=== PATIENT | female | born 1960 | race Caucasian/White ===

== ENCOUNTER 2025-03-24 14:27 | Outpatient (CLI) | payer MEDICARE, MEDICAID, SELFPAY ==
--- OUTSIDE RECORDS SUMMARY | 2025-02-17 13:50 | XMS_ITS | Encounter Summary ---
Author Organization Healthcare Address [address] [place] [address] Care Team Providers Care Cotton Stripper Name Role Phone Lucita Bonilla APRN Primary Care Provider [phone] Reason for Visit * Reason Comments Consult * Consultation (Routine) - Closed Specialty Diagnoses / Procedures Referred By Contac t Referred To Contact Rheumatology Diagnoses Other specified abnormal immunological findings in serum Naima Bonilla PA [address] [facility] [place] [address] Phone: tel: fax: [facility] [address] [place] [address] Phone: tel: fax: Referral ID Status Reason Start Date Expiration Date V isits Requested Visits Authorized [id number] Closed Specialty Services Required 11/29/2024 05/31/2026 1 1 Encounter Details Date Type Department Care Team (Late st Contact Info) Description 02/17/2025 1:50 PM EDT Consult [facility] [address] [place] [address] Moraima Richard APRN [address] [place] [address] Positive NELSY (antinuclear antibody) (Primary [...] file Social Connections: Unknown (06/12/2023) Received from [facility] Family and Community Support Help with Day-to-Day Activities: Not on file Lonely or Isolated: Not on file Intimate Partner Violence: Not At Risk (09/20/2023) Received from [facility] Abuse Screen Feels Unsafe at Home or Work/School: no Feels Threatened by Someone: no Does Anyone Try to Keep You From Having Contact with Others or Doing Things Outside Your Home?: no Physical Signs of Abuse Present: no Housing Stability: Unknown (06/12/2023) Received from [facility] Housing Stability Current Living Arrangements: Not on [...] (ESR) -- SANCHEZ-28 (CRP) -- Tender (SANCHEZ-28) Swollen (SANCHEZ-28) 0 Provider Global -- Patient [...] Q 6 MONTHS Note to patient: The 21st Century Cures Act makes medical notes like these available to patients inthe interest of transparency. However, please be advised that this is a medical document. It is intended as dshz-gm-drxw communication. It is written in medical language [...] Diagnosis Date COPD (chronic obstructive pulmonary disease) ([facility]) Coronary artery disease GERD (gastroesophageal reflux disease) [...] facility-administered medications for this visit. * Moraima Chauhan APRN - 02/17/2025 1:28 PM EDT Images from the original note were not included. All About Arthritis - Video Arthritis refers to a group of disorders that involve the body?s joints and have similar symptoms, including pain, stiffness, and swelling. Learn about the different types of arthritis and their treatment. To view the video go to this web address: https://bit.[email or web address] Or, scan this QR code with your smart phone Last Reviewed Date: 2020 00:00:00 ?? [employer] All rights reserved. This information is not [...] phone Last Reviewed Date: 2021 00:00:00 ?? [employer] All rights reserved. This information is not [...] about any medicines you are taking, including kgpy-mey-xwrgzrt medicines, herbs, and supplements. Last Reviewed Date: 2024 00:00:00 ?? [id number] The [employer]. All rights reserved. This information is not intended as a substitute for professional medical care. Always follow your healthcare professional's instructions. * [facility] - Moraima Richard APRN - 02/17/2025 1:28 PM EDT Images from the original note were not included. 42014 Understanding Polyarthritis Polyarthritis is a term for [...] and reduce swelling and stiffness. They include cwsx-zbj-vsphkvr medicines such as naproxen and ibuprofen, and [...] pain. Last Reviewed Date: 2024 00:00:00 ?? [id number] The [employer]. All rights reserved. This information is not intended as a substitute for professional medical care. Always follow your healthcare professional's instructions. documented in this encounter Plan of Treatment Upcoming Encounters Date Type Department Care Team (Late st Contact Info) Description 08/18/2025 1:20 PM EST Office Visit [facility] [address] [place] [address] Moraima Richard APRN [address] [place] [phone] documented as of this encounter Results * [...] MD on 02/17/2025 2:33 PM us Moraima Rimma Richard CUSTODIAL SERVICES MANAGER IMG XR PROCEDURES Final R esult * [...] Cristina MD on 02/17/2025 2:33 PM Moraima Richard APRN IMG XR PROCEDURES Final R esult * Protein, Random, Urine with Creatinine (02/17/2025 1:57 PM EDT) Protein, Urine 27 mg/dL 02/17/2025 4:44 PM EDT [facility] Creatinine, Urine 71 mg/dL 02/17/2025 4:44 PM EDT [facility] Protein/Creatin ine Ratio 0.4 mg/mg Creat 02/17/2025 4:44 PM EDT [facility] Urine Urine specimen obtained by clean catch procedure / Unknown Non-blood Collection / Unknown 02/17/2025 1:57 PM EDT 02/17/2025 1:57 PM EDT us Moraima L Jose Manuel CUSTODIAL SERVICES MANAGER LAB URINE ORDERABLES Maribel l Result Performing Organization Address City/[facility]/ZIP Co de Phone Number [facility] [address] [place] [address] * TSH (02/17/2025 1:56 PM EDT) Thyroid Stimulating Hormone, Plasma 1.62 0.40 - 4.20 uIU/mL 02/17/2025 3:29 PM EDT [facility] Blood Venous blood specimen / Unknown Venipuncture / Unknown 02/17/2025 1:56 PM EDT 02/17/2025 1:56 PM EDT us Moraima Davalosly CUSTODIAL SERVICES MANAGER LAB BLOOD ORDERABLES Maribel l Result Performing Organization Address City/[facility]/ZIP Co de Phone Number [facility] [address] [place] [address] * Thyroid Peroxidase Antibody (02/17/2025 1:56 PM EDT) Thyroid Peroxidase Antibody <5 <=8 IU/mL 02/17/2025 3:37 PM EDT [facility] Blood Venous blood specimen / Unknown Venipuncture / Unknown 02/17/2025 1:56 PM EDT 02/17/2025 1:56 PM EDT us Moraima Davalosly CUSTODIAL SERVICES MANAGER LAB BLOOD ORDERABLES Maribel l Result [facility] [address] [place] [address] * Thyroglobulin Antibody (Inhouse) (02/17/2025 1:56 PM EDT) Thyroglobulin Antibody <1.0 <4.0 IU/mL 02/17/2025 3:51 PM EDT [facility] Blood Venous blood specimen / Unknown Venipuncture / Unknown 02/17/2025 1:56 PM EDT 02/17/2025 1:56 PM EDT Moraima Davalosly CUSTODIAL SERVICES MANAGER LAB BLOOD ORDERABLES Maribel l Result [facility] [address] [place] [address] * T4, free (02/17/2025 1:56 PM EDT) Free T4, Plasma 1.2 0.8 - 1.7 ng/dL 02/17/2025 3:29 PM EDT [facility] Blood Venous blood specimen / Unknown Venipuncture / Unknown 02/17/2025 1:56 PM EDT 02/17/2025 1:56 PM EDT Moraima Davalosly CUSTODIAL SERVICES MANAGER LAB BLOOD ORDERABLES Maribel l Result [facility] [address] [place] [address] * T3 (02/17/2025 1:56 PM EDT) T3, Serum 130 87 - 187 ng/dL 02/17/2025 5:09 PM EDT [facility] Blood Venous blood specimen / Unknown Venipuncture / Unknown 02/17/2025 1:56 PM EDT 02/17/2025 1:56 PM EDT Moraima Davalosly CUSTODIAL SERVICES MANAGER LAB BLOOD ORDERABLES Maribel l Result [facility] [address] [place] [address] * Cyclic Citrul Peptide Antibody IgG (02/17/2025 1:56 PM EDT) Cyclic Citrul Peptide Antibody IgG <5.0 <=5.0 U/mL 02/17/2025 3:52 PM EDT [facility] Blood Venous blood specimen / Unknown Venipuncture / Unknown 02/17/2025 1:56 PM EDT 02/17/2025 1:56 PM EDT Moraima Richard CUSTODIAL SERVICES MANAGER LAB BLOOD ORDERABLES Maribel l Result [facility] [address] [place] [address] * Rheumatoid Factor, Plasma (02/17/2025 1:56 PM EDT) Rheumatoid Factor, Plasma <10 <14 IU/mL 02/17/2025 5:09 PM EDT [facility] Blood Venous blood specimen / Unknown Venipuncture / Unknown 02/17/2025 1:56 PM EDT 02/17/2025 1:56 PM EDT [facility]a [facility] LAB BLOOD ORDERABLES Maribel l Result [facility] [address] [place] [address] * Callahan (LILIBETH) Antibody, IgG (02/17/2025 1:56 PM EDT) Callahan (LILIBETH) Antibody, IgG 5 0 - 40 AU/mL 02/19/2025 1:27 PM EDT [facility] ([email or web address]) Serum 02/17/2025 1:56 PM EDT 02/17/2025 1:56 PM EDT Narrative [facility] ([email or web address]) - 02/19/2025 1:27 PM EDT INTERPRETIVE INFORMATION: [...] associations with SLE clinical manifestations. Performed By: [facility] [address] [place] [address] Fabricator Artificial Breast: Angel Luis Fuentes MD, PhD CLIA Number: [id number] Moraima Rimma Richard CUSTODIAL SERVICES MANAGER LAB REF LAB BLOOD AND FLU ID ORD Final Result [facility] [employer] ([email or web address]) [address] [place] [address] * ENAII (02/17/2025 1:56 PM EDT) SSA-52 (RO52) (LILIBETH) Antibody, IgG 29 0 - 40 AU/mL 02/19/2025 1:28 PM EDT [facility] ([email or web address]) SSA-60 (RO60) (LILIBETH) Antibody, IgG 0 0 - 40 AU/mL 02/19/2025 1:28 PM EDT [facility] ([email or web address]) SSB (LA) (LILIBETH) Antibody, IgG 1 0 - 40 AU/mL 02/19/2025 1:28 PM EDT [facility] ([email or web address]) Blood Venous blood specimen / Unknown Venipuncture / Unknown 02/17/2025 1:56 PM EDT 02/17/2025 1:56 PM EDT Narrative [facility] ([email or web address]) - 02/19/2025 1:28 PM EDT INTERPRETIVE INFORMATION: [...] (PSS) also have this antibody. Performed By: [facility] [address] [place] [address] Fabricator Artificial Breast: Angel Luis Fuentes MD, PhD CLIA Number: [id number] Moraima Richard CUSTODIAL SERVICES MANAGER LAB BLOOD ORDERABLES Maribel gomez Result [facility]) [address] [place], [place] [id number] * ENAI (02/17/2025 1:56 PM EDT) Callahan/ACUTE COORDINATOR (LILIBETH) Ab, IgG 2 0 - 19 Units 02/21/2025 8:59 AM EDT [facility]) Blood Venous blood specimen / Unknown Venipuncture / Unknown 02/17/2025 1:56 PM EDT 02/17/2025 1:56 PM EDT Narrative [facility]) - 02/21/2025 8:59 AM EDT INTERPRETIVE INFORMATION: Callahan/ACUTE COORDINATOR (LILIBETH) Antibody, IgG 19 Units or Less ............. Negative 20 to 39 Units ............... Weak Positive 40 to 80 Units ............... Moderate Positive 81 Units or greater .......... Strong Positive Callahan/ACUTE COORDINATOR antibodies are frequently seen in patients with mixed connective tissue disease (MCTD) and are also associated with other systemic autoimmune rheumatic diseases (SARDs) such as systemic lupus erythematosus (SLE), systemic sclerosis, and myositis. Antibodies targeting the Callahan/ACUTE COORDINATOR antigenic complex also recognize Callahan antigens, therefore, the Callahan antibody response must be considered when interpreting these results. Performed By: [facility] [address] [place] [address] Fabricator Artificial Breast: Angel Luis Fuentes MD, PhD CLIA Number: [id number] Moraima Richard [facility] LAB BLOOD ORDERABLES Maribel gomez Result [facility] [employer]) [address] [place] [address] * (ABNORMAL) Double-Stranded DNA (dsDNA) Antibody, IgG by IFA (02/17/2025 1:56 PM EDT) Double-Strande d DNA (dsDNA) Ab IgG IFA 1:40(H) <1:10 02/20/2025 7:54 AM EDT [facility] ([facility]) Blood Venous blood specimen / Unknown Venipuncture / Unknown 02/17/2025 1:56 PM EDT 02/17/2025 1:56 PM EDT Narrative [facility] [employer]) - 02/20/2025 7:54 AM EDT INTERPRETIVE INFORMATION: [...] recommendations for testing may be found at https://[employer]base (acquired by [employer])/content/tggqhoicss-mzdaii-xdhnrpmw. Performed By: [facility] [address] [place] [address] Fabricator Artificial Breast: Angel Luis Fuentes MD, PhD CLIA Number: [id number] Moraima Richard APRN LAB BLOOD ORDERABLES Maribel l Result Performing Organization Address City/[facility] Co de Phone Number [employer] ([facility]) [address] [place] [address] * C4 Complement (02/17/2025 1:56 PM EDT) C4 Complement 23 13 - 36 mg/dL 02/17/2025 3:30 PM EDT [facility] Blood Venous blood specimen / Unknown Venipuncture / Unknown 02/17/2025 1:56 PM EDT 02/17/2025 1:56 PM EDT Moraima Richard CUSTODIAL SERVICES MANAGER LAB BLOOD ORDERABLES Maribel l Result Performing Organization Address City/[facility] Co de Phone Number [facility] [address] [place] [address] * C3 Complement (02/17/2025 1:56 PM EDT) C3 Complement 149 84 - 166 mg/dL 02/17/2025 3:30 PM EDT [facility] Blood Venous blood specimen / Unknown Venipuncture / Unknown 02/17/2025 1:56 PM EDT 02/17/2025 1:56 PM EDT Moraima Richard CUSTODIAL SERVICES MANAGER LAB BLOOD ORDERABLES Maribel l Result Performing Organization Address City/[facility]/ZIP Co de Phone Number [facility] [address] [place] [address] * (ABNORMAL) Antinuclear Antibody (NELSY), HEp-2, IgG (02/17/2025 1:56 PM EDT) NELSY INTERPRETIVE COMMENT See Note 02/19/2025 2:35 PM EDT [facility] ([email or web address]) Anti Nuc Ab Screen Detected( H) <1:80 02/19/2025 2:35 PM EDT [facility] ([email or web address]) Blood Venous blood specimen / Unknown Venipuncture / Unknown 02/17/2025 1:56 PM EDT 02/17/2025 1:56 PM EDT Narrative [facility] ([email or web address]) - 02/19/2025 2:35 PM EDT Centromere Pattern [...] not necessarily rule out SARD. Performed By: [facility] [address] [place] [address] Fabricator Artificial Breast: Angel Luis Fuentes MD, PhD CLIA Number: [id number] Moraimaanderson Richard CUSTODIAL SERVICES MANAGER LAB BLOOD ORDERABLES Maribel l Result Performing Organization Address [facility] Co de Phone Number [facility]) [address] [place] [address] * Cryoglobulin, Serum (SO) (02/17/2025 1:56 PM EDT) [facility] Cryoglobulin, S SEE COMMENTS Negative %ppt 02/19/2025 2:00 PM EDT [facility]) Comment: Negative. This test is negative at 24 hours. All samples are held and reviewed again at 7 days. If delayed precipitation occurs after 7 days, Immunofixation will be performed and an additional report will follow. Test Performed by: [facility] [address] [place] [address] Receptionist/Telephone Operator: Jani Nascimento Ph.D.; CLIA# [id number] Blood Venous blood specimen / Unknown Venipuncture / Unknown 02/17/2025 1:56 PM EDT 02/17/2025 1:56 PM EDT Moraima Rimma Jose Manuel APRN LAB REF LAB BLOOD AND FLU ID ORD Final Result Performing Organization Address [facility] Co de Phone Number [facility]) * (ABNORMAL) RNA Polymerase III Antibody, IgG (02/17/2025 1:56 PM EDT) [facility] RNA Polymerase III Antibody, IgG 73(H) 0 - 19 Units 02/19/2025 7:22 PM EDT [facility]) Blood Venous blood specimen / Unknown Venipuncture / Unknown 02/17/2025 1:56 PM EDT 02/17/2025 1:56 PM EDT Narrative [facility]) - 02/19/2025 7:22 PM EDT INTERPRETIVE INFORMATION: [...] antibodies associated with SSc, including centromere, Scl-70, U3-ACUTE COORDINATOR, PM/Scl, or Th/To. Performed By: [facility] [address] [place] [address] Fabricator Artificial Breast: Angel Luis Fuentes MD, PhD CLIA Number: [id number] Moraima Richard APRN LAB BLOOD ORDERABLES Maribel gomez Result [facility]) [address] [place], [place] [id number] * PM/Scl-100 Antibody, IgG by Immunoblot (SO) (02/17/2025 1:56 PM EDT) Pathologist [facility] PM/Scl 100 Antibody, IgG Negative Negative 02/19/2025 8:42 PM EDT [employer] ([email or web address]) Blood Venous blood specimen / Unknown Venipuncture / Unknown 02/17/2025 1:56 PM EDT 02/17/2025 1:56 PM EDT Narrative [facility]) - 02/19/2025 8:42 PM EDT INTERPRETIVE INFORMATION: [...] developed and its performance characteristics determined by [facility]. It has not been cleared or approved by the US Food and Drug Administration. This test was performed in a CLIA certified laboratory and is intended for clinical purposes. Performed By: [facility] [address] [place] [address] Fabricator Artificial Breast: Angel Luis Fuentes MD, PhD CLIA Number: [id number] Moraima Richard CUSTODIAL SERVICES MANAGER LAB BLOOD ORDERABLES Maribel gomez Result [facility] [employer]) [address] [place] [address] * Anti-scleroderma antibody (02/17/2025 1:56 PM EDT) SCLERODERMA (SCL-70) (LILIBETH) ANTIBODY, IGG 2 0 - 40 AU/mL 02/19/2025 1:28 PM EDT [facility] ([facility]) Blood Venous blood specimen / Unknown Venipuncture / Unknown 02/17/2025 1:56 PM EDT 02/17/2025 1:56 PM EDT Narrative [facility] Proteins[facility]KY [facility]) - 02/19/2025 1:28 PM EDT INTERPRETIVE INFORMATION: [...] testing for centromere, RNA polymerase III and U3-ACUTE COORDINATOR, PM/Scl, or Th/To antibodies. Performed By: [facility] [address] [place] [address] Fabricator Artificial Breast: Angel Luis Fuentes MD, PhD CLIA Number: [id number] Moraima Richard APRN LAB BLOOD ORDERABLES Maribel gomez Result [facility]) [address] [place] [address] * (ABNORMAL) Centromere Antibody, IgG (02/17/2025 1:56 PM EDT) Pathologist [facility] Centromere Ab, IgG 139(H) 0 - 40 AU/mL 02/19/2025 1:27 PM EDT [employer] ([email or web address]) Blood Venous blood specimen / Unknown Venipuncture / Unknown 02/17/2025 1:56 PM EDT 02/17/2025 1:56 PM EDT Narrative [facility] ([email or web address]) - 02/19/2025 1:27 PM EDT INTERPRETIVE INFORMATION: [...] other antibodies associated with SSc, including Scl-70, U3-ACUTE COORDINATOR, PM/Scl, or Th/To. Performed By: [facility] [address] [place] [address] Fabricator Artificial Breast: Angel Luis Fuentes MD, PhD CLIA Number: [id number] Moraima Richard APRN LAB BLOOD ORDERABLES Maribel gomez Result [facility] ([facility]) [address] [place] [address] documented in this encounter Visit Diagnoses Diagnosis [...] documented as of this encounter Care Teams Cotton Stripper Relationship Specialty Start Date End Date Lucita Bonilla APRN [address] [place] [address] PCP - General 03/29/23 documented as of this encounter
--- OUTSIDE RECORDS SUMMARY | 2025-02-17 13:59 | XMS_ITS | Encounter Summary ---
Author Organization Healthcare Address [address] [place] [address] Care Team Providers Care Aerophysics Engineer Name Role Phone Lucita Bonilla APRN Primary Care Provider [phone] Encounter Details Date Type Department Care Team (Latest Contact Info) Description 02/17/2025 1:59 PM EDT - 02/17/2025 11:59 PM EDT Hospital Encounter [facility] [address], [address] [place] [address] Positive NELSY (antinuclear antibody); Polyarthralgia [...] television Not at all 02/17/2025 12:55 PM JAMIET Keren Nickerson Moving or speaking so slowly [...] Keren Nickerson documented as of this encounter Medications at [...] mg) by mouth twice a day. 10/18/2023 ibuprofen 600 MG tablet Take 1 tablet (600 mg) by mouth every 6 (six) hours if needed for mild pain or moderate pain. 80 tablet 01/15/2024 ibuprofen 600 MG tablet Take 1 tablet (600 mg) by mouth every 6 (six) hours if needed for mild pain. 60 tablet 06/13/2024 lidocaine (Xylocaine) 5 % ointmentIndications: Aftercare following [...] needed for severe pain. 3 tablet 06/13/2024 pantoprazole (Protonix) 40 MG EC tablet Take 1 tablet (40 mg) by mouth 1 (one) time each day before breakfast. Do not crush, chew, or split. 30 tablet 3 12/01/2023 phenazopyridine (Pyridium) 100 MG tabletIndications:Dy suria Take 1 tablet (100 mg) by mouth 3 (three) times a day if needed for pain. 10 tablet 01/15/2024 polyethylene glycol (Miralax) 17 g packet Take 17 g by mouth 1 (one) time each day if needed (constipation) . 30 packet 01/15/2024 RABEprazole (Aciphex) 20 MG EC tablet 12/28/2023 senna (Senokot) 8.6 MG tablet Take 2 tablets (17.2 mg) by mouth at night if needed for constipation. 60 tablet 01/15/2024 simethicone (Mylicon) 80 MG chewable tablet Chew 1 tablet (80 mg) every 6 (six) hours if needed (gas pain). 60 tablet 01/15/2024 tiotropium (Spiriva) [address] 1 capsule (18 mcg) into inhaler and inhale 1 (one) time each day. traZODone (Desyrel) 50 MG tablet Take 1 tablet (50 mg) by mouth every night. 11/21/2023 documented as of this encounter Plan of Treatment Upcoming Encounters Date Type Department Care Team (Late st Contact Info) Description 08/18/2025 1:20 PM EST Office Visit [facility] [address], [address] [place] [address] Moraima Richard, BOAT OAR MAKER [address] [place] [address] documented as of this encounter [...] on 02/17/2025 2:33 PM us Moraima Richard BOAT OAR MAKER IMG XR PROCEDURES Final R esult * [...] Cristina MD on 02/17/2025 2:33 PM Moraima Shanks Jose Manuel BOAT OAR MAKER IMG XR PROCEDURES Final R esult [...] documented as of this encounter Care Teams Aerophysics Engineer Relationship Specialty Start Date End Date Lucita Bonilla APRN [address] [place] [address] PCP - General 03/29/23 documented as of this encounter
--- OUTSIDE RECORDS SUMMARY | 2025-03-24 14:31 | XMS_ITS | Encounter Summary ---
Author Organization Healthcare Address [address] [place] [address] Care Team Providers Care Watch Hairspring Assembler Name Role Phone Lucita Bonilla LARISSA Primary Care Provider [phone] Encounter Details Date Type Department Care Team (Late st Contact Info) Description 03/03/2025 Telephone [facility] [address], [address] [place] [address] Moraima Richard APRN [address] [place] [address] Social History Tobacco Use Types Packs/Day Years [...] on file documented as of this encounter Miscellaneous Notes * Telephone Encounter - Mirella Jamison - 03/03/2025 1:10 PM EDT Called both # and left message.. need location of echo documented in this encounter Plan of Treatment Upcoming Encounters Date Type Department Care Team (Late st Contact Info) Description 08/18/2025 1:20 PM EST Office Visit [facility] [address], [address] [place] [address] Moraima Richard APRN [address] [place] [address] documented as of this encounter Visit Diagnoses Not on filedocumented in this encounter Additional Health Concerns Assessment Noted Time PHQ-9 Depression Total Score: 0 02/18/20 25 12:55 PM EDT A fall risk assessment has been complete d for the patient 02/17/2025 12:55 PM EDT A Body Mass Index follow-up plan has been documented for the patient 02/17/2025 1:32 PM EDT documented as of this encounter Care Teams Watch Hairspring Assembler Relationship Specialty Start Date End Date Lucita Bonilla APRN [address] [place] [address] PCP - General 03/29/23 documented as of this encounter
--- OUTSIDE RECORDS SUMMARY | 2025-03-24 14:31 | XMS_ITS | Encounter Summary ---
Author Organization Healthcare Address [address] [place] [address] Care Team Providers Care Spooler Name Role Phone Lucita Bonilla LARISSA Primary Care Provider [phone] Encounter Details Date Type Department Care Team (Late st Contact Info) Description 02/26/2025 Telephone [facility] [address] [place] [address] Moraima Richard APRN [address] [place] [address] Social History Tobacco Use Types [...] encounter Miscellaneous Notes * Telephone Encounter - Radha Newman - 02/26/2025 2:46 PM EDT ----- Message from Moraima Richard APRN sent at 02/26/2025 2:01 PM EDT ----- Please call pt and let her know I need to discuss labs. We need additional labs and I need her to come back In 6 months documented in this encounter Plan of Treatment Upcoming Encounters Date Type Department Care Team (Late st Contact Info) Description 08/18/2025 1:20 PM EST Office Visit [facility] [address] [place] [address] Moraima Richard, CAMPGROUND CLEANING ATTENDANT [address] [place] [address] documented as of this encounter Visit Diagnoses Not on filedocumented in this encounter Additional Health Concerns Assessment Noted Time PHQ-9 Depression Total Score: 0 02/18/20 12:55 PM EDT A fall risk assessment has been complete d for the patient 02/17/2025 12:55 PM EDT A Body Mass Index follow-up plan has been documented for the patient 02/17/2025 1:32 PM EDT documented as of this encounter Care Teams Spooler Relationship Specialty Start Date End Date Lucita Bonilla APRN [address] [place] [address] PCP - General 03/29/23 documented as of this encounter
--- OUTSIDE RECORDS SUMMARY | 2025-03-24 14:31 | XMS_ITS | Encounter Summary ---
Author Organization Healthcare Address [address] [place] [address] Care Team Providers Care Production Finisher Name Role Phone Lucita Bonilla APRN Primary Care Provider [phone] Encounter Details Date Type Department Care Team (Late st Contact Info) Description 02/18/2025 Results Follow-Up [facility] [address], [address] [place] [address] Moraima Richard APRN [address] [place] [address] Social History Tobacco Use Types [...] on file documented as of this encounter Plan of Treatment Upcoming Encounters Date Type Department Care Team (Late st Contact Info) Description 08/18/2025 1:20 PM EST Office Visit [facility] [address], [address] [place] [address] Moraima Richard APRN [address] [place] [address] documented as of this encounter Visit Diagnoses [...] documented as of this encounter Care Teams Production Finisher Relationship Specialty Start Date End Date Lucita Bonilla APRN [address] [place] [address] PCP - General 03/29/23 documented as of this encounter
--- OUTSIDE RECORDS SUMMARY | 2025-03-24 14:32 | XMS_ITS | Encounter Summary ---
Author Organization Healthcare Address [address] [place] [address] Care Team Providers Care Mini Bar Attendant Name Role Phone Lucita Bonilla APRN Primary Care Provider [phone] Encounter Details Date Type Department Care Team (Late st Contact Info) Description 03/06/2025 Telephone [facility] [address] [place] [address] Moraima Richard APRN [address] [place] [address] Social History Tobacco Use Types [...] Description 08/18/2025 1:20 PM EST Office Visit [facility] [address], [address] [place] [address] Moraima Richard APRN [address] [place] [address] documented as of this encounter Visit Diagnoses [...] documented as of this encounter Care Teams Mini Bar Attendant Relationship Specialty Start Date End Date Lucita Bonilla APRN [address] [place] [address] PCP - General 03/29/23 documented as of this encounter
--- OUTSIDE RECORDS SUMMARY | 2025-03-24 14:32 | XMS_ITS | Encounter Summary ---
Author Organization [employer] ([place], [place], [place], [place]) Address [address] [place] [address] Care Team Providers Care Kitman Name Role Phone Unavailable Primary Care Provider Unavailabl e Encounter Details Date Type Department Care Team (Late st Contact Info) Description 06/08/2020 Transcribed Document [facility] [place] [facility] [address] [place] [address] ProviderSoraida MD [address] [place], [place] [id number] Social History Tobacco Use Types Packs/Day Years Used Date Smoking Tobacco: Never Assessed Comments Unknown Sex and Gender Information Value Date Recorded Sex Assigned at Female 03/01/2022 10:41 AM CDT Legal Sex Female 10:41 AM CDT Gender Identity Female 03/01/2022 10:41 AM CDT Sexual Orientation Not on file documented as of this encounter Miscellaneous Notes * Cerner Conversion Note - Historical ProviderMD - 06/08/2020 11:51 PM CDT [place] Suicide Severity Rating Scale (C-SSRS) Entered On: 06/09/2020 0:57 EDT Performed On: 06/09/2020 0:57 EDT by MINI PACE RN [place] Suicide Severity Rating Scale (C-SSRS) CSSRS Past Month Wish to be : No CSSRS Past Month Suicidal Thoughts : No CSSRS Lifetime Suicide Behavior : No Suicide Severity Rating Score : 0 Suicide Severity Rating : No Additional Care Required at this time MINI PACE RN - 06/09/2020 0:57 EDT documented in this encounter Plan of Treatment Not on file documented as of this encounter Visit Diagnoses Not on filedocumented in this encounter
--- OUTSIDE RECORDS SUMMARY | 2025-03-24 14:32 | XMS_ITS | Encounter Summary ---
Author Organization [employer] ([place], [place], [place], [place]) Address [address] [place] [address] Care Team Providers Care Nut Sorter Operator Name Role Phone Unavailable Primary Care Provider Unavailabl e Encounter Details Date Type Department Care Team (Late st Contact Info) Description 06/09/2020 Transcribed Document [facility] [place] [facility] [place] [address] ProviderSoraida MD [address] [place] [address] Social History Tobacco Use Types Packs/Day Years Used Date Smoking Tobacco: Never Assessed Comments Unknown Sex and Gender Information Value Date Recorded Sex Assigned at Female 03/01/2022 10:41 AM CDT Legal Sex Female 10:41 AM CDT Gender Identity Female 03/01/2022 10:41 AM CDT Sexual Orientation Not on file documented as of this encounter Miscellaneous Notes * Cerner Conversion Note - Historical ProviderMD - 06/09/2020 1:51 AM CDT documented in this encounter Plan of Treatment Not on file documented as of this encounter Visit Diagnoses Not on filedocumented in this encounter
--- OUTSIDE RECORDS SUMMARY | 2025-03-24 14:32 | XMS_ITS | Encounter Summary ---
Author Organization Healthcare Address [address] [place] [address] Care Team Providers Care Hydraulic Hammer Operator Name Role Phone Lucita Bonilla APRN Primary Care Provider [phone] Encounter Details Date Type Department Care Team (Late st Contact Info) Description 03/22/2023 Telephone [facility] [address] [address] Dental, Provider, DDS [address] [place] [address] Social History Tobacco Use Types Packs/Day Years [...] Description 08/18/2025 1:20 PM EST Office Visit [facility] [address] [place] [address] Moraima Richard APRN [address] [place] [address] documented as of this encounter Visit Diagnoses Not on filedocumented in this encounter Care Teams Hydraulic Hammer Operator Relationship Specialty Start Date End Date Lucita Bonilla APRN [address] [place], [place] [id number] PCP - General 03/29/23 documented as of this encounter
--- OUTSIDE RECORDS SUMMARY | 2025-03-24 14:32 | XMS_ITS | Clinical Summary ---
Author Organization Healthcare Address [address] [place] [address] Care Team Providers Care Weed Eradicator Name Role Phone Lucita Bonilla APRN Primary Care Provider [phone] Allergies Active Allergy Reactions Criticality Noted Date Comments Ibuprofen Nausea Low 03/16/2023 Medications lisinopril 40 MG tablet Take 1 tablet (40 mg) by mouth 1 (one) time each day. 4 Active albuterol (Ventolin HFA) 108 (90 Base) MCG/ACT inhaler Inhale 2 puffs every 4 (four) hours if needed. 3 Active ASPIRIN 81 MG chewable tablet Chew 1 tablet (81 mg) 1 (one) time each day. Active atorvastatin (Lipitor) 40 MG tablet Take 1 tablet (40 mg) by mouth 1 (one) time each day. Active budesonide-formote rol (Symbicort) 160-4.5 MCG/ACT inhaler Inhale 1 puff if needed. 3 Active carvedilol (Coreg) 6.25 MG tablet Take 2 tablets (12.5 mg) by mouth twice a day. 4 Active omeprazole (PriLOSEC) [address] capsule Take 1 capsule (40 mg) by mouth 1 (one) time each day. Do not crush or chew. Active tiotropium (Spiriva) [address] 1 capsule (18 mcg) into inhaler and inhale 1 (one) time each day. Active ondansetron ODT (Zofran-ODT) 4 MG disintegrating tablet Take 1 tablet (4 mg) by mouth every 6 (six) hours if needed for nausea or vomiting. 10 tablet 1 03/29/202 4 Active pantoprazole (Protonix) 40 MG EC tablet Take 1 tablet (40 mg) by mouth 1 (one) time each day before breakfast. Do not crush, chew, or split. 30 tablet 3 4 Active metoclopramide (Reglan) 5 MG tablet Take 1 tablet (5 mg) by mouth 4 (four) times a day if needed (reflux, nausea). 28 tablet 4 Active ibuprofen 600 MG tablet Take 1 tablet (600 mg) by mouth every 6 (six) hours if needed for mild pain or moderate pain. 80 tablet 4 Active acetaminophen (Tylenol) 325 MG tablet Take 2 tablets (650 mg) by mouth every 6 (six) hours if needed for pain, headaches or fever. 120 tablet 4 Active senna (Senokot) 8.6 MG tablet Take 2 tablets (17.2 mg) by mouth at night if needed for constipation. 60 tablet 4 Active polyethylene glycol (Miralax) 17 g packet Take 17 g by mouth 1 (one) time each day if needed (constipation ). 30 packet 4 Active simethicone (Mylicon) 80 MG chewable tablet Chew 1 tablet (80 mg) every 6 (six) hours if needed (gas pain). 60 tablet 4 Active traZODone (Desyrel) 50 MG tablet Take 1 tablet (50 mg) by mouth every night. 4 Active metoprolol tartrate (Lopressor) 50 MG tablet Take 1 tablet (50 mg) by mouth 2 (two) times a day. Active phenazopyridine (Pyridium) 100 MG tabletIndications: Dysuria Take 1 tablet (100 mg) by mouth 3 (three) times a day if needed for pain. 10 tablet 4 Active lidocaine (Xylocaine) 5 % ointmentIndication s:Aftercare following surgery of the genitourinary system Apply to perineum three times per day as needed for pain 30 g 2 4 Active RABEprazole (Aciphex) 20 MG EC tablet 4 Active loratadine (Claritin) 10 MG tablet Take 1 tablet (10 mg) by mouth 1 (one) time each day. 08/31/202 4 Active ibuprofen 600 MG tablet Take 1 tablet (600 mg) by mouth every 6 (six) hours if needed for mild pain. 60 tablet 4 Active acetaminophen (Tylenol) 325 MG tablet Take 2 tablets (650 mg) by mouth every 4 (four) hours if needed for pain. 60 tablet 4 Active ondansetron (Zofran) 4 MG tablet Take 1 tablet (4 mg) by mouth every 8 (eight) hours if needed for nausea or vomiting. 10 tablet 5 4 Active oxyCODONE (Roxicodone) 5 MG immediate release tablet Take 1 tablet (5 mg) by mouth every 4 (four) hours if needed for severe pain. 3 tablet 4 Active lidocaine (Xylocaine) 5 % ointment Apply to perineum up to twice daily as needed. 28 g 4 Active Active Problems Problem Noted Date Diagnosed Date Voiding dysfunction 03/19/2024 Palpitations 11/07/2023 Vaginal vault prolapse, posthysterectomy 024 Mixed incontinence 10/25/2023 Nonrheumatic mitral (valve) insufficiency 2023 Angina pectoris, unspecified 10/16/2023 Diverticulosis of large inte alma without perforation or abscess without bleeding 09/20/2023 Renal artery stenosis 08/29/2023 Emphysema, unspecified 04/27/2023 Hyperglycemia, unspecified 04/17/2023 Carotid stenosis, asymptomatic, right 04/17/2023 Overview (12/01/2023): Last Assessment & Plan: Carotid duplex 04/17/2023- Right internal carotid artery demonstrates a 50-69% stenosis. Left internal carotid artery demonstrates a less than 50% stenosis. Rheumatic disorders of both mitral and tricuspid valves 04/13/2023 Generalized anxiety disorder 03/22/2023 Hypertension 03/16/2023 Overview (12/01/2023): Last Assessment & Plan: Her BP continues to be elevated she states SBP at ome 160-170. It is well controlled in the office today. Will increase her Lisinopril to 20mg daily. Patient to keep BP log Low salt diet Increase exercise as tolerated. Plan renal artery ultrasound Chronic obstructive lung disease 12/03/2020 Overview (12/01/2023): Problem Code: J44.9; Problem Code Type: ICD-10; Gastroesophageal reflux disease without esophagi tis 12/03/2020 Hyperlipidemia 12/03/2020 Overview (12/01/2023): Problem Code: E78.5; Problem Code Type: ICD-10; Nicotine dependence 12/03/2020 Overview (12/01/2023): Problem Code: F17.200; Problem Code Type: ICD-10; Encounters Date Type Department Care Team Description 03/06/2025 Telephone [facility] [address] [place] [address] Moraima Richard, MENTAL HYGIENE CONSULTANT 03/03/2025 Telephone [facility] [address] [place] [address] Moraima Richard, MENTAL HYGIENE CONSULTANT 02/26/2025 Telephone [facility] [address] [place] [address] Moraima Richard, MENTAL HYGIENE CONSULTANT 02/18/2025 Results Follow-Up [facility] [address] [place] [address] Moraima Richard, MENTAL HYGIENE CONSULTANT 02/17/2025 1:59 PM EDT - 02/17/2025 11:59 PM EDT Hospital Encounter [facility] [address] [place] [address] Positive NELSY (antinuclear antibody); Polyarthralgia Discharge Disposition: Home or Self Care 02/17/2025 1:50 PM EDT Consult [facility] [address] [place] [address] Moraima Richard APRN Positive NELSY (antinuclear antibody) (Primary Dx); Polyarthralgia 02/17/2025 Travel from Last 3 Months Immunizations Immunization Administration Dates Next Due Influenza, injectable, quadr ivalent, preservative free 07/08/2022,05/22/2019,06/02/2017 Pneumococcal Conjugate PCV 13 06/08/2017 Zoster, Recombinant 11/21/2023 Family History Medical History Relation Name Comments Anesthesia problems Neg Hx Malig Hyperthermia Neg Hx Social History Tobacco Use Types Packs/Day Years [...] AM EDT Sexual Orientation Not on file Last Filed Vital Signs Vital Sign Reading [...] Mass Index 24.87 02/17/2025 12:50 PM EDT Plan of Treatment Upcoming Encounters Date Type Department Care Team (Late st Contact Info) Description 08/18/2025 1:20 PM EST Office Visit [facility] [address] [place] [address] Moraima Richard, MENTAL HYGIENE CONSULTANT [address] [place] [address] Health Maintenance Due Date Last Done Comments Dental Prophylaxis 1961 Dental X-Ray: Bitewings 1961 [facility]-HIV Screening 1961 [facility]-Hepatitis C Screening 1961 [facility]-Medicare Annual Wellness (AWV) 1961 [facility]-Infant/Child/Adol SDOH Screenings 1961 [facility]- SDOH Screenings 1979 [facility]-Adult SDOH Screenings 1979 [facility]-DTaP,Tdap,and Td Vaccine s (1 - Tdap) 01/09/1980 CT Colonography 2006 Colonoscopy 2006 FIT-DNA 2006 FIT 2006 FOBT 2006 Sigmoidoscopy 2006 [facility]-Colorectal Cancer Screening 2006 [facility]-Breast Cancer Screening 2011 [facility]-Lung Cancer Screening 2011 [facility]-Pneumococcal Vaccine: 50 + Years (2 of 2 - PPSV23) 08/03/2017 06/08/2017 [facility]-RSV Vaccine: 60+ Years o r (1 - Risk 60-74 years 1-dose series) 2021 Dental Oral Exam 09/30/2023 03/29/2023 [facility]-Zoster Vaccines (2 of 2) 01/16/2024 11/21/2023 NVR-[id number] Vaccine (1 - 2023- season) 2024 [facility]-Influenza Vaccine (#1) 05/05/202507/08, 05/22/2019, 06/02/2017 [facility]-Depression Screening 02/17/2026 025, 02/17/2025 Dental X-Ray: Full Mouth 03/30/2026 03/29/2023 [facility]-HPV/Cotest Discontinued 08/22/1991 [facility]-Cervical Cancer Screening Discontinued [facility]-Pap Smear Discontinued 10/10/2023, 08/22/1991 HPV Vaccines Aged Out No longer eligi ble based on patient's age to complete this topic [facility]-HIB Vaccines Aged Out No longer e ligible based on patient's age to complete this topic [facility]-Hepatitis A Vaccines Aged Out No longer eligible based on patient's age to complete this topic [facility]-IPV Vaccines Aged Out No longer e ligible based on patient's age to complete this topic [facility]-Rotavirus Vaccines Aged Out No lo nger eligible based on patient's age to complete this topic Medical Devices Implanted Type Area Architect In Training Device Identifier Shelf Expiration Date Model / Serial / Lot System Mesh Sling Advantage Fit Blue - [id number] Implanted:Qty: 1 on 11/30/2023 by Chirag Mcgraw MD at [facility] N/A: [employer]-[id number] 07/30/2026 [id number] / / [id number] Procedures Procedure Name Priority Date/Time Associated Diagnosis Comments XR HIPS BILATERAL 2 VIEWS Routine 02/17/2025 2:08 PM EDT Positive NELSY (antinuclear antibody) Polyarthralgia XR HAND WRIST BILATERAL 2 VIEWS Routine 02/17/2025 2:08 PM EDT Positive NELSY (antinuclear antibody) Polyarthralgia PROTEIN, URINE, RANDOM WITH CREATININE Routine 02/17/2025 1:57 PM EDT Positive NELSY (antinuclear antibody) Polyarthralgia PROTEIN ELECTROPHORESIS, PATHOLOGIST INTERPRETATION Routine 02/17/2025 1:56 PM EDT Positive NELSY (antinuclear antibody) Polyarthralgia NELSY SINGLE PATTERN (REFLEX ONLY) (SO) Routine 02/17/2025 1:56 PM EDT Positive NELSY (antinuclear antibody) Polyarthralgia TOTAL PROTEIN, SERUM Routine 02/17/2025 1:56 PM EDT Positive NELSY (antinuclear antibody) Polyarthralgia PROTEIN ELECTROPHORESIS, SERUM Routine 02/17/2025 1:56 PM EDT Positive NELSY (antinuclear antibody) Polyarthralgia CBC W/O DIFFERENTIAL Routine 02/17/2025 1:56 PM EDT Voiding dysfunction Incomplete bladder emptying BASIC METABOLIC PANEL, PLASMA Routine 02/17/2025 1:56 PM EDT Voiding dysfunction Incomplete bladder emptying CENTROMERE ANTIBODY, IGG (SO) Routine 02/17/2025 1:56 PM EDT Positive NELSY (antinuclear antibody) Polyarthralgia SCLERODERMA (SCL-70) (LILIBETH) ANTIBODY, IGG (SO) Routine 02/17/2025 1:56 PM EDT Positive NELSY (antinuclear antibody) Polyarthralgia PM/SCL-100 ANTIBODY, IGG BY IMMUNOBLOT (SO) Routine 02/17/2025 1:56 PM EDT Positive NELSY (antinuclear antibody) Polyarthralgia RNA POLYMERASE III ANTIBODY, IGG (SO) Routine 02/17/2025 1:56 PM EDT Positive NELSY (antinuclear antibody) Polyarthralgia PROTEIN ELECTROPHORESIS, SERUM Routine 02/17/2025 1:56 PM EDT Positive NELSY (antinuclear antibody) Polyarthralgia CRYOGLOBULIN, SERUM (SO) Routine 02/17/2025 1:56 PM EDT Positive NELSY (antinuclear antibody) Polyarthralgia ANTINUCLEAR ANTIBODY (NELSY) WITH HEP-2 SUBSTRATE, IGG BY IFA (SO) Routine 02/17/2025 1:56 PM EDT Positive NELSY (antinuclear antibody) Polyarthralgia C3 COMPLEMENT Routine 02/17/2025 1:56 PM EDT Positive NELSY (antinuclear antibody) Polyarthralgia C4 COMPLEMENT Routine 02/17/2025 1:56 PM EDT Positive NELSY (antinuclear antibody) Polyarthralgia DOUBLE-STRANDED DNA (DSDNA) ANTIBODY, IGG BY IFA (SO) Routine 02/17/2025 1:56 PM EDT Positive NELSY (antinuclear antibody) Polyarthralgia CALLAHAN/COMPRESSOR OPERATOR PORTABLE (LILIBETH) ANTIBODY, IGG (SO) Routine 02/17/2025 1:56 PM EDT Positive NELSY (antinuclear antibody) Polyarthralgia EXTRACTABLE NUCLEAR ANTIGEN ANTIBODIES (SSA 52, SSA 60, AND SSB) (SO) Routine 02/17/2025 1:56 PM EDT Positive NELSY (antinuclear antibody) Polyarthralgia CALLAHAN (LILIBETH) ANTIBODY, IGG (SO) Routine 02/17/2025 1:56 PM EDT Positive NELSY (antinuclear antibody) Polyarthralgia RHEUMATOID FACTOR, PLASMA Routine 02/17/2025 1:56 PM EDT Positive NELSY (antinuclear antibody) Polyarthralgia CYCLIC CITRUL PEPTIDE ANTIBODY IGG Routine 02/17/2025 1:56 PM EDT Positive NELSY (antinuclear antibody) Polyarthralgia T3 Routine 02/17/2025 1:56 PM EDT Positive NELSY (antinuclear antibody) Polyarthralgia FREE T4, PLASMA Routine 02/17/2025 1:56 PM EDT Positive NELSY (antinuclear antibody) Polyarthralgia THYROGLOBULIN ANTIBODY Routine 1:56 PM EDT Positive NELSY (antinuclear antibody) Polyarthralgia THYROID PEROXIDASE ANTIBODY Routine 02/17/2025 1:56 PM EDT Positive NELSY (antinuclear antibody) Polyarthralgia TSH Routine 02/17/2025 1:56 PM EDT Positive NELSY (antinuclear antibody) Polyarthralgia PANORAMIC RADIOGRAPHIC IMAGE Routine 03/29/2023 1:45 PM EDT Bony exostosis of mandible COMPREHENSIVE ORAL EVALUATION - NEW OR ESTABLISHED PATIENT Routine 03/29/2023 1:45 PM EDT Bony exostosis of mandible CYTO DATA CONVERSION Routine 08/22/1991 12:00 AM EST from Last 3 Months or Most Recently Relevant to Health Maintenance Results * XR Hips Bilateral 2 Views [...] on 02/17/2025 2:33 PM us Moraima Richard APRN IMG XR PROCEDURES Final [...] Urine with Creatinine (02/17/2025 1:57 PM EDT) Pathologist [facility] Protein, Urine 27 mg/dL 02/17/2025 4:44 PM EDT [facility] Creatinine, Urine 71 mg/dL 02/17/2025 4:44 PM EDT [facility] Protein/Creatin ine Ratio 0.4 mg/mg Creat 02/17/2025 4:44 PM EDT [facility] Urine Urine specimen obtained by clean catch procedure / Unknown Non-blood Collection / Unknown 02/17/2025 1:57 PM EDT 02/17/2025 1:57 PM EDT Result [facility] Moraima Richard APRN LAB URINE ORDERABLES Maribel l Result Performing Organization Address City/[facility] Co de Phone Number [facility] [address] [place] [address] * Cryoglobulin, Serum (SO) (02/17/2025 1:56 PM EDT) Pathologist [facility] Cryoglobulin, S SEE COMMENTS Negative %ppt 02/19/2025 2:00 PM EDT [facility] ([place]) Comment: Negative. This test is negative at 24 hours. All samples are held and reviewed again at 7 days. If delayed precipitation occurs after 7 days, Immunofixation will be performed and an additional report will follow. Test Performed by: [facility] [address] [place], [place] [id number] Taker Away: Jani Nascimento Ph.D.; CLIA# [id number] Blood Venous blood specimen / Unknown Venipuncture / Unknown 02/17/2025 1:56 PM EDT 02/17/2025 1:56 PM EDT Moraima Richard APRN LAB REF LAB BLOOD AND FLU ID ORD Final Result [facility] ([facility]) * (ABNORMAL) RNA Polymerase III Antibody, IgG (02/17/2025 1:56 PM EDT) RNA Polymerase III Antibody, IgG 73(H) 0 - 19 Units 02/19/2025 7:22 PM EDT [facility] ([place]) Blood Venous blood specimen / Unknown Venipuncture / Unknown 02/17/2025 1:56 PM EDT 02/17/2025 1:56 PM EDT Narrative [facility] ([place]) - 02/19/2025 7:22 PM EDT INTERPRETIVE INFORMATION: [...] antibodies associated with SSc, including centromere, Scl-70, U3-COMPRESSOR OPERATOR PORTABLE, PM/Scl, or Th/To. Performed By: [facility] [address] [place] [address] Manager Pmo: Angel Luis Fuentes MD, PhD CLIA Number: [id number] Moraima Richard APRN LAB BLOOD ORDERABLES Maribel gomez Result [facility] ([place]) [address] [place] [address] * (ABNORMAL) Centromere Antibody, IgG (02/17/2025 1:56 PM EDT) Centromere Ab, IgG 139(H) 0 - 40 AU/mL 02/19/2025 1:27 PM EDT [facility] ([place]) Blood Venous blood specimen / Unknown Venipuncture / Unknown 02/17/2025 1:56 PM EDT 02/17/2025 1:56 PM EDT Narrative [facility]) - 02/19/2025 1:27 PM EDT INTERPRETIVE INFORMATION: [...] other antibodies associated with SSc, including Scl-70, U3-COMPRESSOR OPERATOR PORTABLE, PM/Scl, or Th/To. Performed By: [facility] [address] [place], [place] [id number] Manager Pmo: Angel Luis Fuentes MD, PhD CLIA Number: [id number] Moraima Richard APRN LAB BLOOD ORDERABLES Maribel gomez Result [facility]) [address] [place], [place] [id number] * PM/Scl-100 Antibody, IgG by Immunoblot (SO) (02/17/2025 1:56 PM EDT) Pathologist [facility] PM/Scl 100 Antibody, IgG Negative Negative 02/19/2025 8:42 PM EDT [facility] ([place]) Blood Venous blood specimen / Unknown Venipuncture / Unknown 02/17/2025 1:56 PM EDT 02/17/2025 1:56 PM EDT Narrative [facility]) - 02/19/2025 8:42 PM EDT INTERPRETIVE INFORMATION: [...] developed and its performance characteristics determined by [facility]. It has not been cleared or approved by the [place] Food and Drug Administration. This test was performed in a CLIA certified laboratory and is intended for clinical purposes. Performed By: [facility] [address] [place] [id number] Manager Pmo: Angel Luis Fuentes MD, PhD CLIA Number: [id number] Moraima Richard APRN LAB BLOOD ORDERABLES Maribel l Result Performing Organization Address [facility] Co de Phone Number [facility]) [address] [place] [address] * Total Protein, Serum (02/17/2025 1:56 PM EDT) Total Protein 7.5 6.2 - 7.7 g/dL 02/17/2025 3:37 PM EDT [facility] Blood Venous blood specimen / Unknown Venipuncture / Unknown 02/17/2025 1:56 PM EDT 02/17/2025 1:56 PM EDT Moraima Richard APRN LAB BLOOD ORDERABLES Maribel l Result [facility] [address] [place] [address] * (ABNORMAL) Protein Electrophoresis, Serum (02/17/2025 1:56 PM EDT) Albumin Electrophoresis, Serum 4.3 3.6 - 4.7 g/dL 02/18/2025 4:01 AM EDT [facility] Alpha 1 Globulin Electrophoresis, Serum 0.3 0.2 - 0.4 g/dL 02/18/2025 4:01 AM EDT [facility] Alpha 2 Globulin Electrophoresis, Serum 1.0(H) 0.5 - 0.9 g/dL 02/18/2025 4:01 AM EDT [facility] Beta 1 Globulin Electrophoresis, Serum 0.5 0.3 - 0.5 g/dL 02/18/2025 4:01 AM EDT [facility] Beta 2 Globulin Electrophoresis, Serum 0.4 0.2 - 0.5 g/dL 02/18/2025 4:01 AM EDT [facility] Gamma Globulin Electrophoresis, Serum 1.0 0.6 - 1.5 g/dL 02/18/2025 4:01 AM EDT [facility] Interpretation, Serum Protein Electrophoresis Pathology report to follow. 02/18/2025 4:01 AM EDT [facility] Blood Venous blood specimen / Unknown Venipuncture / Unknown 02/17/2025 1:56 PM EDT 02/17/2025 1:56 PM EDT Moraima Richard APRN LAB BLOOD ORDERABLES Maribel gomez Result [facility] [address] [place] [address] * Callahan (LILIBETH) Antibody, IgG (02/17/2025 1:56 PM EDT) Callahan (LILIBETH) Antibody, IgG 5 0 - 40 AU/mL 02/19/2025 1:27 PM EDT [facility] ([facility]) Serum 02/17/2025 1:56 PM EDT 02/17/2025 1:56 PM EDT Narrative [facility] ([employer]) - 02/19/2025 1:27 PM EDT INTERPRETIVE INFORMATION: [...] associations with SLE clinical manifestations. Performed By: [facility] [address] [place] [id number] Manager Pmo: Angel Luis Fuentes MD, PhD CLIA Number: [id number] Moraimaanderson Richard APRN LAB REF LAB BLOOD AND FLU ID ORD Final Result Performing Organization Address City/[facility]/ZIP Co de Phone Number [facility] ([facility]) [address] [place] [id number] * Protein electrophoresis serum, pathologist interpretation (02/17/2025 1:56 PM EDT) Clinical Diagnosis, SPEP Positive NELSY 02/18/2025 10:51 AM EDT [facility] Interpretation , SPEP There are no significant abnormalities in the protein electrophoretic pattern save for slightly elevated alpha-2 A resident was involved in the service. I attest I examined the relevant preparations for the specimens and confirmed the diagnosis or interpretation. 02/18/2025 10:51 AM EDT [facility] Pathologist Signature, SPEP Reviewed by: Bryce Camarillo MD 02/18/2025 10:51 AM EDT [facility] LAB CP ASR DISCLAIMER Yes 02/18/2025 10:51 AM EDT [facility] Blood Venous blood specimen / Unknown Venipuncture / Unknown 02/17/2025 1:56 PM EDT 02/17/2025 1:56 PM EDT Moraimaanderson Richard APRN LAB PATHOLOGY ORDERABLES Final Result [facility] [address] [place] [address] * (ABNORMAL) NELSY Single Pattern (Reflex only) (02/17/2025 1:56 PM EDT) Pathologist [facility] NELSY Pattern Centromere (A) 02/19/2025 2:36 PM EDT [facility] NELSY Titer >1:2560(H) 02/19/2025 2:36 PM EDT [facility] Blood Venous blood specimen / Unknown Venipuncture / Unknown 02/17/2025 1:56 PM EDT 02/17/2025 1:56 PM EDT Narrative [facility] - 02/19/2025 2:36 PM EDT Performed By: [facility] [address] [place] [address] Manager Pmo: Angel Luis Fuentes MD, PhD CLIA Number: [id number] Moraimaanderson Richard MENTAL HYGIENE CONSULTANT LAB BLOOD ORDERABLES Maribel l Result [facility] [address] [place] [address] * T3 (02/17/2025 1:56 PM EDT) [facility] T3, Serum 130 87 - 187 ng/dL 02/17/2025 5:[address] [facility] Blood Venous blood specimen / Unknown Venipuncture / Unknown 02/17/2025 1:56 PM EDT 02/17/2025 1:56 PM EDT Moraima Jason Jose Manuel MENTAL HYGIENE CONSULTANT LAB BLOOD ORDERABLES Maribel l Result [facility] [address] [place] [address] * Thyroglobulin Antibody (Inhouse) (02/17/2025 1:56 PM EDT) [facility] Thyroglobulin Antibody <1.0 <4.0 IU/mL 02/17/2025 3:51 PM EDT [facility] Blood Venous blood specimen / Unknown Venipuncture / Unknown 02/17/2025 1:56 PM EDT 02/17/2025 1:56 PM EDT Moraima Davalosmason DIAS LAB BLOOD ORDERABLES Maribel jason Result [facility] [address] [place] [address] * ENAII (02/17/2025 1:56 PM EDT) SSA-52 (RO52) (LILIBETH) Antibody, IgG 29 0 - 40 AU/mL 02/19/2025 1:28 PM EDT [facility] ([facility]) SSA-60 (RO60) (LILIBETH) Antibody, IgG 0 0 - 40 AU/mL 02/19/2025 1:28 PM EDT [facility] ([facility]) SSB (LA) (LILIBETH) Antibody, IgG 1 0 - 40 AU/mL 02/19/2025 1:28 PM EDT [facility] ([facility]) Blood Venous blood specimen / Unknown Venipuncture / Unknown 02/17/2025 1:56 PM EDT 02/17/2025 1:56 PM EDT Narrative [facility] ([facility]) - 02/19/2025 1:28 PM EDT INTERPRETIVE INFORMATION: [...] (PSS) also have this antibody. Performed By: [facility] [address] [place] [address] Manager Pmo: Angel Lusi Fuentes MD, PhD CLIA Number: [id number] Moraima Richard APRN LAB BLOOD ORDERABLES Maribel gomez Result [facility] ([facility]) [address] [place] [address] * ENAI (02/17/2025 1:56 PM EDT) Callahan/COMPRESSOR OPERATOR PORTABLE (LILIBETH) Ab, IgG 2 0 - 19 Units 02/21/2025 8:59 AM EDT [facility] ([facility]) Blood Venous blood specimen / Unknown Venipuncture / Unknown 02/17/2025 1:56 PM EDT 02/17/2025 1:56 PM EDT Narrative [facility] ([facility]) - 02/21/2025 8:59 AM EDT INTERPRETIVE INFORMATION: Callahan/COMPRESSOR OPERATOR PORTABLE (LILIBETH) Antibody, IgG 19 Units or Less ............. Negative 20 to 39 Units ............... Weak Positive 40 to 80 Units ............... Moderate Positive 81 Units or greater .......... Strong Positive Callahan/COMPRESSOR OPERATOR PORTABLE antibodies are frequently seen in patients with mixed connective tissue disease (MCTD) and are also associated with other systemic autoimmune rheumatic diseases (SARDs) such as systemic lupus erythematosus (SLE), systemic sclerosis, and myositis. Antibodies targeting the Callahan/COMPRESSOR OPERATOR PORTABLE antigenic complex also recognize Callahan antigens, therefore, the Callahan antibody response must be considered when interpreting these results. Performed By: [facility] [address] [place] [address] Manager Pmo: Angel Luis Fuentes MD, PhD CLIA Number: [id number] Moraima Richard APRN LAB BLOOD ORDERABLES Maribel l Result Performing Organization Address City/[facility] Co de Phone Number [facility] ([facility]) [address] [place] [address] * Thyroid Peroxidase Antibody (02/17/2025 1:56 PM EDT) Thyroid Peroxidase Antibody <5 <=8 IU/mL 02/17/2025 3:37 PM EDT [facility] Blood Venous blood specimen / Unknown Venipuncture / Unknown 02/17/2025 1:56 PM EDT 02/17/2025 1:56 PM EDT Moraima Richard APRN LAB BLOOD ORDERABLES Maribel l Result Performing Organization Address [facility] Co de Phone Number [facility] [address] [place] [address] * Cyclic Citrul Peptide Antibody IgG (02/17/2025 1:56 PM EDT) Pathologist [facility] Cyclic Citrul Peptide Antibody IgG <5.0 <=5.0 U/mL 02/17/2025 3:52 PM EDT [facility] Blood Venous blood specimen / Unknown Venipuncture / Unknown 02/17/2025 1:56 PM EDT 02/17/2025 1:56 PM EDT Moraima Richard MENTAL HYGIENE CONSULTANT LAB BLOOD ORDERABLES Maribel l Result Performing Organization Address City/[facility]/ZIP Co de Phone Number [facility] [address] [place] [address] * Anti-scleroderma antibody (02/17/2025 1:56 PM EDT) SCLERODERMA (SCL-70) (LILIBETH) ANTIBODY, IGG 2 0 - 40 AU/mL 02/19/2025 1:28 PM EDT [facility] ([place]) Blood Venous blood specimen / Unknown Venipuncture / Unknown 02/17/2025 1:56 PM EDT 02/17/2025 1:56 PM EDT Narrative [facility] ([place]) - 02/19/2025 1:28 PM EDT INTERPRETIVE INFORMATION: [...] testing for centromere, RNA polymerase III and U3-COMPRESSOR OPERATOR PORTABLE, PM/Scl, or Th/To antibodies. Performed By: [facility] [address] [place] [id number] Manager Pmo: Angel Luis Fuentes MD, PhD CLIA Number: [id number] Moraima Richard APRN LAB BLOOD ORDERABLES Maribel l Result Performing Organization Address City/[facility]/ZIP Co de Phone Number [facility] ([facility]) [address] [place] [address] * (ABNORMAL) Double-Stranded DNA (dsDNA) Antibody, IgG by IFA (02/17/2025 1:56 PM EDT) [facility] Double-Strande d DNA (dsDNA) Ab IgG IFA 1:40(H) <1:10 02/20/2025 7:54 AM EDT [facility] ([place]) Blood Venous blood specimen / Unknown Venipuncture / Unknown 02/17/2025 1:56 PM EDT 02/17/2025 1:56 PM EDT Narrative [facility] ([place]) - 02/20/2025 7:54 AM EDT INTERPRETIVE INFORMATION: [...] recommendations for testing may be found at [email or web address]. Performed By: [facility] [address] [place] [address] Manager Pmo: Angel Luis Fuentes MD, PhD CLIA Number: [id number] Moraima Richard APRN LAB BLOOD ORDERABLES Maribel l Result [facility] ([place]) [address] [place] [address] * (ABNORMAL) CBC W/O Differential (02/17/2025 1:56 PM EDT) [facility] WBC Count 11.39(H) 3.70 - 10.30 10*3/uL LAB HEMATOLOGY METHOD 02/17/2025 2:56 PM EDT [facility] RBC Count 4.17 3.90 - 5.20 10*6/uL LAB HEMATOLOGY METHOD 02/17/2025 2:56 PM EDT [facility] HGB 12.4 11.2 - 15.7 g/dL LAB HEMATOLOGY METHOD 02/17/2025 2:56 PM EDT [facility] HCT 38.5 34.0 - 45.0 % LAB HEMATOLOGY METHOD 02/17/2025 2:56 PM EDT [facility] Platelet Count 335 155 - 369 10*3/uL LAB HEMATOLOGY METHOD 02/17/2025 2:56 PM EDT [facility] MCV 92 79 - 98 fL LAB HEMATOLOGY METHOD 02/17/2025 2:56 PM EDT [facility] MCH 29.7 26.0 - 32.0 pg LAB HEMATOLOGY METHOD 02/17/2025 2:56 PM EDT [facility] MCHC 32.2 30.7 - 35.5 g/dL LAB HEMATOLOGY METHOD 02/17/2025 2:56 PM EDT [facility] RDW 13.5 11.5 - 14.5 % LAB HEMATOLOGY METHOD 02/17/2025 2:56 PM EDT [facility] MPV 10.9 8.8 - 12.5 fL LAB HEMATOLOGY METHOD 02/17/2025 2:56 PM EDT [facility] nRBC 0.0 <=0.0 per 100 WBCs LAB HEMATOLOGY METHOD 02/17/2025 2:56 PM EDT [facility] Blood Venous blood specimen / Unknown Venipuncture / Unknown 02/17/2025 1:56 PM EDT 02/17/2025 1:56 PM EDT us Chirag Mcgraw MD LAB BLOOD ORDERABLES Final Res ult [facility] [address] [place] [address] * Rheumatoid Factor, Plasma (02/17/2025 1:56 PM EDT) Pathologist [facility] Rheumatoid Factor, Plasma <10 <14 IU/mL 02/17/2025 5:09 PM EDT [facility] Blood Venous blood specimen / Unknown Venipuncture / Unknown 02/17/2025 1:56 PM EDT 02/17/2025 1:56 PM EDT Moraima Davalosly MENTAL HYGIENE CONSULTANT LAB BLOOD ORDERABLES Maribel l Result Performing Organization Address City/[facility]/ZIP Co de Phone Number [facility] [address] [place] [address] * C3 Complement (02/17/2025 1:56 PM EDT) Pathologist [facility] C3 Complement 149 84 - 166 mg/dL 02/17/2025 3:30 PM EDT [facility] Blood Venous blood specimen / Unknown Venipuncture / Unknown 02/17/2025 1:56 PM EDT 02/17/2025 1:56 PM EDT Moraima Davalosly MENTAL HYGIENE CONSULTANT LAB BLOOD ORDERABLES Maribel l Result Performing Organization Address [facility]/[place] [address] * C4 Complement (02/17/2025 1:56 PM EDT) Pathologist [facility] C4 Complement 23 13 - 36 mg/dL 02/17/2025 3:[address] [facility] Blood Venous blood specimen / Unknown Venipuncture / Unknown 02/17/2025 1:56 PM EDT 02/17/2025 1:56 PM EDT Moraima Davalosly MENTAL HYGIENE CONSULTANT LAB BLOOD ORDERABLES Maribel l Result Performing Organization Address City/[facility]/[place] [address] * (ABNORMAL) Antinuclear Antibody (NELSY), HEp-2, IgG (02/17/2025 1:56 PM EDT) Pathologist [facility] NELSY INTERPRETIVE COMMENT See Note 02/19/2025 2:35 PM EDT [facility] ([place]) Anti Nuc Ab Screen Detected( H) <1:80 02/19/2025 2:35 PM EDT [facility] ([place]) Blood Venous blood specimen / Unknown Venipuncture / Unknown 02/17/2025 1:56 PM EDT 02/17/2025 1:56 PM EDT Narrative [facility] ([place]) - 02/19/2025 2:35 PM EDT Centromere Pattern [...] not necessarily rule out SARD. Performed By: [facility] [address] [place] [id number] Manager Pmo: Angel Luis Fuentes MD, PhD CLIA Number: [id number] Moraima Richard APRN LAB BLOOD ORDERABLES Maribel l Result [facility] [place]) [address] [place] [address] * TSH (02/17/2025 1:56 PM EDT) Thyroid Stimulating Hormone, Plasma 1.62 0.40 - 4.20 uIU/mL 02/17/2025 3:29 PM EDT [facility] Blood Venous blood specimen / Unknown Venipuncture / Unknown 02/17/2025 1:56 PM EDT 02/17/2025 1:56 PM EDT Moraima Richard APRN LAB BLOOD ORDERABLES Maribel l Result [facility] [address] [place] [address] * T4, free (02/17/2025 1:56 PM EDT) Pathologist [facility] Free T4, Plasma 1.2 0.8 - 1.7 ng/dL 02/17/2025 3:29 PM EDT [facility] Blood Venous blood specimen / Unknown Venipuncture / Unknown 02/17/2025 1:56 PM EDT 02/17/2025 1:56 PM EDT Moraima Richard APRN LAB BLOOD ORDERABLES Maribel l Result [facility] [address] [place] [address] * (ABNORMAL) Basic metabolic panel (02/17/2025 1:56 PM EDT) Glucose, Plasma 74 74 - 99 mg/dL 02/17/2025 3:29 PM EDT [facility] BUN, Plasma 10 8 - 23 mg/dL 02/17/2025 3:29 PM EDT [facility] Creatinine, Plasma 0.66 0.60 - 1.10 mg/dL 02/17/2025 3:29 PM EDT [facility] BUN/Creatinine Ratio 15 02/17/2025 3:29 PM EDT [facility] Sodium, Plasma 138 136 - 145 mmol/L 02/17/2025 3:29 PM EDT [facility] Potassium, Plasma 3.3(L) 3.6 - 4.9 mmol/L 02/17/2025 3:29 PM EDT [facility] Chloride, Plasma 100 97 - 107 mmol/L 02/17/2025 3:29 PM EDT [facility] CO2, Plasma 25 22 - 29 mmol/L 02/17/2025 3:29 PM EDT [facility] Anion Gap 13 6 - 16 mmol/L 02/17/2025 3:29 PM EDT [facility] Total Calcium, Plasma 10.1 8.9 - 10.2 mg/dL 02/17/2025 3:29 PM EDT [facility] eGFRcr 98.1 mL/min/1.7 3m*2 02/17/2025 3:29 PM EDT [facility] Comment:Reported eGFRcr in m L/min/1.73m2 is based the CKD-EPI 2020 equation that does not use a race coefficient. Blood Venous blood specimen / Unknown Venipuncture / Unknown 02/17/2025 1:56 PM EDT 02/17/2025 1:56 PM EDT us Chirag Mcgraw MD LAB BLOOD ORDERABLES Final Res ult [facility] [address] [place] [address] * Cytology (08/22/1991 12:00 AM EST) Specimen from vagina (specimen) 08/22/1991 08/23/1991 Narrative [facility] - 09/09/1991 12:00 AM EST [facility] MR #: [id number] [facility] [address] [place], [place] [address] 1960 (Age: 31) FW Collect Date: 08/22/1991 00:00 Receipt Date: 08/23/1991 00:00 Page 1 DEPARTMENT OF PATHOLOGY AND LABORATORY MEDICINE CYTOPATHOLOGY REPORT Email: [email or web address] * Converted Case * This report may not match the original report format ATTENDING MD/Practitioner: Lucila Dolan MD Service: ASSOCIATE PROFESSOR OF CHEMISTRY Location: Reported: 09/09/1991 00:00 Collected: 08/22/1991 00:00 INTERPRETATION VAGINAL NO DYSPLASTIC OR MALIGNANT CELLS SEEN. TRICHOMONAS VAGINALIS. SATISFACTORY FOR INTERPRETATION. Electronically Signed Out STEFFEN Sprague (ASCP) Fiorella Reece MD Cervical cytology is a screening test primarily for squamous cancers and precursors and has associated false negative and positive results. New technologies such as liquid based sampling may decrease but will not eliminate all false negative results. Regular screening and follow-up of unexplained clinical signs and symptoms are recommended to minimize false negative results. Please see the ASCCP website (www.asccp.org) for followup recommendations. If HPV testing was requested, correlation with the results is suggested (please call Microbiology at [phone] for results). CLINICAL INFORMATION: Menstrual History: {Not Provided} Date of Last Menstrual Period: {Not Provided} h/o [place] III 1985 S/P TVH PAP SMEAR PERFORMED BY SPECIMEN DESCRIPTION: A: VAGINAL, PAP ICD: F: {Not Entered} SNOMED CODES: 1; C1B404 [id number] E4433 In cases where a pathologist has signed out the report, the service has been rendered in part by a resident. The signing pathologist has performed and is responsible for the reported pathologic evaluation. Historical Provider LAB PATHOLOGY ORDERABLES Final Result [facility] from Last 3 Months or Most Recently Relevant to Health Maintenance Insurance [address], [place] [id number] [employer] MEDICARE [employer] MEDICARE [place] Advance Directives * Full Code (Latest Code Status on File) Date Activated Date Inactivated Comments 11/30/2023 2:21 PM 12/01/2023 2:32 PM Question Answer Comments Patient has decision-making capacity? Yes Care Teams Weed Eradicator Relationship Specialty Start Date End Date Lucita Bonilla APRN [address] [place] [id number] PCP - General 03/29/23
--- OUTSIDE RECORDS SUMMARY | 2025-03-24 14:32 | XMS_ITS | Clinical Summary ---
Author Organization [facility] ([place], [place], [place], [place]) Address [address] [place] [address] Care Team Providers Care Distribution District Supervisor Name Role Phone Unavailable Primary Care Provider Unavailabl e Social History Tobacco Use Types Packs/Day Years Used Date Smoking Tobacco: Never Assessed Comments Unknown Sex and Gender Information Value Date Recorded Sex Assigned at Female 03/01/2022 10:41 AM CDT Legal Sex Female 10:41 AM CDT Gender Identity Female 03/01/2022 10:41 AM CDT Sexual Orientation Not on file Plan of Treatment Not on file
--- OUTSIDE RECORDS SUMMARY | 2025-03-24 14:32 | XMS_ITS | Clinical Summary ---
[facility] Address [address] [place] [address] Care Team Providers Care Tool Maker Name Role Phone Lucita Bonilla Primary Care Provider + [phone] Allergies Active Allergy Reactions Criticality Noted Date Comments Ibuprofen Nausea Only Low 03/16/2023 Medications aspirin 81 MG chewable tablet Chew 1 tablet Daily. Active Spiriva HandiHaler 18 MCG per inhalation capsule Place 1 capsule into inhaler and inhale Daily. 3 Active omeprazole (priLOSEC) 40 MG capsule Take 1 capsule by mouth Daily. 3 Active estradiol (ESTRACE VAGINAL) 0.1 MG/GM vaginal cream Insert 2 applicators into the vagina 2 (Two) Times a Week. 42.5 g 1 4 Active Umeclidinium Otoe (Incruse Ellipta) 62.5 MCG/ACT aerosol powder inhale 1 puff (62.5 mcg) by inhalation route once daily at the same time each day Active albuterol sulfate HFA 108 (90 Base) MCG/ACT inhaler Inhale 1-2 puffs Every 4 (Four) Hours As Needed. Active cyclobenzaprine (FLEXERIL) 10 MG tablet take 1 tablet (10 mg) by oral route 3 times per day as needed for back pain x3 days Active carvedilol (COREG) 6.25 MG tabletIndication s:Hypertension, unspecified type Take 2 tablets by mouth 2 (Two) Times a Day. 180 tablet 1 4 Active nitroglycerin (NITROSTAT) 0.4 MG SL tablet 1 under the tongue as needed for angina, may repeat q5mins for up three doses 100 tablet 11 4 Active atorvastatin (LIPITOR) 40 MG tablet Take 1 tablet by mouth Daily. 100 tablet 1 4 Active lisinopril (PRINIVIL,ZESTRI L) 40 MG tablet Take 1 tablet by mouth Daily. 100 tablet 1 4 Active Active Problems Problem Noted Date Diagnosed Date Mixed incontinence 10/25/2023 Vaginal vault prolapse, posthysterectomy 024 Renal artery stenosis 10/19/2023 History of cervical dysplasia 10/10/2023 Pre-operative cardiovascular examination 023 Assessment & Plan (07/21/2023 11:57 AM EST): Cardiac history 1. CAD s/p CABG in 2011 2. Hypertension 3. Hyperlipidemia 4. COPD Nuclear stress test 03/27/2023-significant GI uptake noted, but no scintigraphic evidence of ischemia. Low risk study. Patient may proceed with surgery from a cardiac standpoint stopping Aspirin 5 days prior to surgery. Carotid stenosis, asymptomatic, right 04/17/2023 Assessment & Plan (07/21/2023 11:57 AM EST): Carotid duplex 04/17/2023- Right internal carotid artery demonstrates a 50-69% stenosis. Left internal carotid artery demonstrates a less than 50% stenosis. Assessment & Plan (04/17/2023 2:35 PM EDT): Carotid duplex from 04/17/2023 reveals 50-69% stenosis of the right internal carotid artery. And <50% stenosis of the left internal carotid artery. - Continue aspirin and atorvastatin at current doses. - Mediterranean diet recommended. - Patient recently had a lipid panel with PCP and was told that her cholesterol was elevated. We will request labs for review. Recommend close monitoring of cholesterol. - Highly encouraged smoking cessation. Generalized anxiety disorder 03/22/2023 Seasonal allergies 03/22/2023 Precordial chest pain 03/16/2023 Assessment & Plan (07/21/2023 11:54 AM EST): She has had no recent CP. Assessment & Plan (03/16/2023 10:02 AM EDT): - Nuclear stress test for further evaluation and management. Dizziness 03/16/2023 Assessment & Plan (03/16/2023 10:04 AM EDT): Carotid duplex for further evaluation due to heavy smoking history and dizziness. Shortness of breath 03/16/2023 Assessment & Plan (07/21/2023 11:54 AM EST): Stable SOA continues to smoke 1ppd. Smoking cessation advised. Echocardiogram 04/13/2023- Left ventricular systolic function is normal. Left ventricular ejection fraction appears to be 56 - 60%. Left ventricular diastolic function is consistent with (grade I) impaired relaxation and age. There is mild mitral and tricuspid regurgitation present. Estimated right ventricular systolic pressure from tricuspid regurgitation is normal (<35 mmHg). Assessment & Plan (04/17/2023 2:35 PM EDT): Likely multifactorial, patient is a smoker with COPD and CAD Nuclear stress test from 03/27/2023 showed no evidence of ischemia, low risk study. Echocardiogram with LVEF of 56-60%. Mild mitral and tricuspid regurgitation. - Highly encourage smoking cessation. Assessment & Plan (03/16/2023 10:03 AM EDT): Likely multifactorial, patient is a smoker with COPD and CAD -Nuclear stress test and echocardiogram for further evaluation Coronary artery disease 03/16/2023 Assessment & Plan (07/21/2023 11:50 AM EST): Nuclear stress test 03/27/2023-significant GI uptake noted, but no scintigraphic evidence of ischemia. Low risk study Patient is on a statin, BB, AVA, and ASA Plan to continue current medications, Smoking cessation strongly advised Assessment & Plan (04/17/2023 2:33 PM EDT): Coronary artery disease is stable . Continue current treatment regimen. Regular aerobic exercise. Stop smoking. Cardiac status will be reassessed in 6 months. S/p CABG in 2011. - Continue aspirin, atorvastatin and lisinopril at current doses. - Consider adding beta-ashley at next office visit Assessment & Plan (03/16/2023 10:02 AM EDT): S/p CABG in 2012. Has not followed up with cardiology in over 5 years. - Continue aspirin, atorvastatin and lisinopril. Hypertension 03/16/2023 Assessment & Plan (07/21/2023 11:53 AM EST): Her BP continues to be elevated she states SBP at ome 160-170. It is well controlled in the office today. Will increase her Lisinopril to 20mg daily. Patient to keep BP log Low salt diet Increase exercise as tolerated. Plan renal artery ultrasound Assessment & Plan (04/17/2023 2:32 PM EDT): Hypertension is worsening. Dietary sodium restriction. Weight loss. Regular aerobic exercise. Stop smoking. Blood pressure will be reassessed at the next regular appointment. -BP is elevated today at 150/66. Patient recently followed up with PCP regarding blood pressure and lisinopril was increased to twice daily. - Continue monitoring BP at home and follow-up with PCP. - Recommend beta-ashley due to history of CAD. Assessment & Plan (03/16/2023 10:02 AM EDT): Hypertension is stable . Continue current treatment regimen. Regular aerobic exercise. Stop smoking. Blood pressure will be reassessed at the next regular appointment. Lumbar spondylosis 09/19/2022 Spinal stenosis of lumbar region 09/19/2022 Insomnia 09/27/2021 Chronic obstructive lung disease 12/03/2020 Overview (10/19/2023): Problem Code: J44.9; Problem Code Type: ICD-10; Gastroesophageal reflux disease without esophagi tis 12/03/2020 Hyperlipidemia 12/03/2020 Overview (10/19/2023): Problem Code: E78.5; Problem Code Type: ICD-10; Nicotine dependence 12/03/2020 Overview (10/19/2023): Problem Code: F17.200; Problem Code Type: ICD-10; Overweight with body mass index (BMI) 25.0-29.9 12/03/2020 Overview (10/19/2023): Problem Code: Z68.27; Problem Code Type: ICD-10; Resolved Problems Problem Noted Date Diagnosed Date Resolved Date COVID-19 07/13/2023 10/19/2023 Immunizations Immunization Administration Dates Next Due Fluzone (or Fluarix & Flulav al for VFC) >6mos 07/08/2022,05/22/2019,06/02/2017 Pneumococcal Conjugate 13-Valent (PCV13) 017 Family History Medical History Relation Name Comments Heart failure Brother 1 Heart failure Brother 2 Heart failure Father Heart failure Mother Heart attack Sister three Relation Name Status Comments Brother 1 (Age 56) Brother 2 Alive Father (Age 72) Mother (Age 74) Sister three Alive Social History Tobacco Use Types Packs/Day Years Used Date Smoking Tobacco: Every Day Cigarettes 1 50 Passive Smoke Exposure: Current Smokeless Tobacco: Never Tobacco Cessation:Ready to Q uit: Not Asked; Counseling Given: Not Answered Alcohol Use Standard Drinks/Week Comments Never 0 (1 standard drink = 0.6 oz pur e alcohol) Abuse Screen Answer Date Recorded Feels Unsafe at Home or Work/School no 09/20/2023 Feels Threatened by Someone no 09/04 Does Anyone Try to Keep You From Having Contact with Others or Doing Things Outside Your Home? no 09/20/2023 Physical Signs of Abuse Present no 09/20/2023 Housing Stability Answer Date Recorded Current Living Arrangements Not on file 05/2023 Potentially Unsafe Housing Conditions Not on kenrick e 06/12/2023 Family and Community Support Answer Obdulio e Recorded Help with Day-to-Day Activities Not on file 06/12/2023 Lonely or Isolated Not on file 06/12/2023 Employment Answer Date Recorded Do you want help finding or keeping work or a niurka b? Not on file 06/12/2023 Disabilities Answer Date Recorded Concentrating, Remembering, or Making Decisions Difficulty Not on file 06/12/2023 Doing Errands Independently Difficulty Not on fi le 06/12/2023 Education Answer Date Recorded Help with school or training? Not on file Preferred Language Not on file 06/12/2023 Comments No Sex and Gender Information Value Date Recorded Sex Assigned at Not on file Legal Sex Female 10:15 AM EDT Gender Identity Not on file Sexual Orientation Not on file Last Filed Vital Signs Vital Sign Reading Time Taken Comments Blood Pressure 120/72 11/21/2023 9:17 AM EDT Pulse 65 11/21/2023 9:17 AM EDT Temperature 36.7 C (98.1 F) 09/20/2023 7:32 PM EST Respiratory Rate 17 09/20/2023 7:32 PM EST Oxygen Saturation 100% 11/21/2023 9:17 AM EDT Inhaled Oxygen Concentration - - Weight 62.1 kg (137 lb) 11/21/2023 9:17 AM EDT Height 154.9 cm (5' 1 ) 11/21/2023 9:17 AM EDT Body Mass Index 25.89 11/21/2023 9:17 AM EDT Plan of Treatment Health Maintenance Due Date Last Done Comments LIPID PANEL 1960 TDAP/TD VACCINES (1 - Tdap) 01/09/1980 MAMMOGRAM 2001 COLOGUARD 2006 COLON CANCER SCREENING 5 YEA R SIGMOIDOSCOPY 2006 COLONOSCOPY [address]CER SCREENING [address] COLONOGRAPHY 2006 FECAL OCCULT BLOOD TEST 2006 FIT Testing (1 year) 2006 ZOSTER VACCINE (1 of 2) 2011 Pneumococcal Vaccine 50+ (2 of 2 - PPSV23) 08/03/2017 06/08/2017 ANNUAL WELLNESS VISIT 09/01/2018 HEPATITIS C SCREENING 09/01/2018 COVID-19 Vaccine ( season) 2024 Annual Gynecologic Pelvic an d Breast Exam 10/11/2024 10/10/2023 INFLUENZA VACCINE 06/04/2025 07/08/2022, , 06/02/2017 Insurance [employer] [facility] MEDICARE REPLACEMENT Care Teams Tool Maker Relationship Specialty Start Date End Date Lucita Bonilla [address] [place] [address] PCP - General Nurse Practitioner 03/16/23
--- OUTSIDE RECORDS SUMMARY | 2025-03-24 14:32 | XMS_ITS | Encounter Summary ---
Author Organization [employer] ([place], [place], [place], [place]) Address [address] [place] [address] Care Team Providers Care Automation Tester Name Role Phone Unavailable Primary Care Provider Unavailabl e Encounter Details Date Type Department Care Team (Late st Contact Info) Description 06/09/2020 Transcribed Document [facility] [address] [place] [address] ProviderSoraida MD [address] [place] [address] Social History Tobacco Use Types [...] Conversion Note - Historical ProviderMD - 06/09/2020 9:31 AM CDT CR Hand Min 3 Vws RT Ordered: 06/09/2020 Auth (Verified) Reason for Exam: pain, numbness volar hand 06/09/2020 07:56 06/09/2020 09:31 (ISAIAS SHETH PA-C) Reviewed by Provider, No further action required x1 documented in this encounter Plan of Treatment Not on file documented as of this encounter Visit Diagnoses Not on filedocumented in this encounter
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
--- OUTSIDE RECORDS SUMMARY | 2025-03-24 14:32 | XMS_ITS | Encounter Summary ---
Author Organization Healthcare Address [address] [place] [id number] Care Team Providers Care Home Sales Service Professional Name Role Phone Lucita Bonilla APRN Primary Care Provider [phone] Encounter Details Date Type Department Care Team (Latest Contact Info) Description 02/17/2025 Travel Social History Tobacco Use Types Packs/Day Years [...] Keren Nickerson documented as of this encounter Plan of Treatment Upcoming Encounters Date Type Department Care Team (Late st Contact Info) Description 08/18/2025 1:20 PM EST Office Visit [facility] [address] [place] [address] Moraima Richard, ELECT[employer]ICAL ACC[employer]ORIES II ASSEMBLER [address] [place] [address] documented as of this encounter [...] documented as of this encounter Care Teams Home Sales Service Professional Relationship Specialty Start Date End Date Lucita Bonilla APRN [address] [place] [address] PCP - General 03/29/23 documented as of this encounter
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
--- OUTSIDE RECORDS SUMMARY | 2025-03-24 14:32 | XMS_ITS | Encounter Summary ---
Author Organization [employer] ([place], [place], [place], [place]) Address [address] [place] [address] Care Team Providers Care Conference Interpreter Name Role Phone Unavailable Primary Care Provider Unavailabl e Encounter Details Date Type Department Care Team (Late st Contact Info) Description 06/09/2020 Transcribed Document [facility] Family Medicine [address] [place] [address] ProviderSoraida MD [address] [place] [address] Social History Tobacco Use [...] Notes * Cerner Conversion Note - Soraida Bonilla MD - 06/09/2020 2:00 AM CDT ED Discharge Entered On: 06/09/2020 2:00 EDT Performed On: 06/09/2020 2:00 EDT by MINI PACE RN Discharge Process Patient Disposition : Discharge Personal Belongings With Patient : Yes Patient Education Completed : Yes Teaching Evaluation : Verbalizes understanding IV Discontinued : Not applicable Nursing Documentation Completed : Yes MINI PACE RN - 06/09/2020 2:00 EDT ED Discharge Discharge To : Home with ambulatory/outpatient follow-up Mode Of Departure : Ambulatory Accompanied By : Unaccompanied Discharge Instructions Reviewed With, Opportunity For Questions Given : Patient Prescriptions Given to Patient : Yes Number of Prescriptions Given : 2 Work/school Release Given : Yes MINI PACE RN - 06/09/2020 2:00 EDT Electronically signed by Porter [facility] Conversion Resource Management Planner Cerner at 12/23/2022 1:36 PM CDT documented in this encounter Plan of Treatment Not on file documented as of this encounter Visit Diagnoses Not on filedocumented in this encounter
--- OUTSIDE RECORDS SUMMARY | 2025-03-24 14:32 | XMS_ITS | Encounter Summary ---
Author Organization [email or web address] ([place], [place], [place], [place]) Address [address] [place] [address] Care Team Providers Care Reference Librarian Name Role Phone Unavailable Primary Care Provider Unavailabl e Encounter Details Date Type Department Care Team (Late st Contact Info) Description 06/09/2020 Transcribed Document [facility] [place] Family Medicine [address] [place] [address] ProviderSoraida MD [address] [place] [address] Social History Tobacco Use Types [...] Cerner Conversion Note - Soraida ProviderMD - 06/09/2020 3:43 PM CDT Patient Resource Center Entered On: 06/09/2020 15:47 EDT Performed On: 06/09/2020 15:43 EDT by Kacey Charles STEAM AND POWER SUPERVISOR Patient Resource Center Provider Status : Information given Established Provider Name : No Patient Phone Number : [phone] Patient Insurance Type : Medicare Source of Referral : Phone out to patient Location of Patient : Home Primary Care Scheduled : No Specialty Care Scheduled : No Qualify for Diabetes and/or Nutrition Referral : No Wound Care Appointment Made : No Why Patient Visited ED- Specialty spent : Other How Patient Arrived at ED : Other Primary Language : Georgian Patient Resource Center Comment : Patient listed as not having a Primary Care Physician.Spoke with patient via telephone who stated that she wanted the name and number of an MD in [place]. Provided patient with information on Jennifer Cordero. Follow Up Needed : Kacey Heath, STEAM AND POWER SUPERVISOR - 06/09/2020 15:43 EDT documented in this encounter Plan of Treatment Not on file documented as of this encounter Visit Diagnoses Not on filedocumented in this encounter
--- OUTSIDE RECORDS SUMMARY | 2025-03-24 14:32 | XMS_ITS | Encounter Summary ---
Author Organization [employer] ([place], [place], [place], [place]) Address [address] [place] [address] Care Team Providers Care Char Belt Operator Name Role Phone Unavailable Primary Care Provider Unavailabl e Encounter Details Date Type Department Care Team (Late st Contact Info) Description 06/09/2020 Transcribed Document [facility] [place] Family Medicine [address] [place] [address] ProviderSoraida MD [address] [place] [address] Social History Tobacco Use Types [...] Conversion Note - Historical ProviderMD - 06/09/2020 1:52 AM CDT [facility] [place] [address] Visit Date/Time: 06/09/2020 01:52:10 GISEL VAZQUEZ The above patient was seen in the hospital today and needs to be excused from work/school until Return to Work/School Date: 06/13/2020 Electronically signed by Porter [facility] Conversion Freelance Programmer/App Developer Juan Antonio at 12/23/2022 1:36 PM CDT documented in this encounter Plan of Treatment Not on file documented as of this encounter Visit Diagnoses Not on filedocumented in this encounter
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
--- OUTSIDE RECORDS SUMMARY | 2025-03-24 14:32 | XMS_ITS | Referral Summary ---
Author Organization [facility] ([place], [place], [place], [place]) Address [address] [place] [address] Care Team Providers Care Radio Host Name Role Phone Unavailable Primary Care Provider [...]
--- OUTSIDE RECORDS SUMMARY | 2025-03-24 14:32 | XMS_ITS | Encounter Summary ---
Author Organization [employer] ([place], [place], [place], [place]) Address [address] [place] [address] Care Team Providers Care Survey Interviewer Name Role Phone Unavailable Primary Care Provider Unavailabl e Encounter Details Date Type Department Care Team (Late st Contact Info) Description 06/09/2020 Transcribed Document [facility] Family Medicine [address] [place] [address] ProviderSoraida MD [address] [place] [address] Social History Tobacco Use Types [...] Note - Soraida Bonilla MD - 06/09/2020 1:[address] [facility] [address] [place] [id number] GISEL JACOBS :1960 Visit Time:06/08/2020 Your Visit Summary Your Care Team Primary Provider: LUDIVINA JEAN-BAPTISTE MD-EMR Secondary Provider: Your Diagnosis Hand injury - Minor Hand pain Medical Information You may obtain a copy of your Emergency Department visit from Medical Records by calling the hospital phone number listed above and asking to be directed to the Medical Records Department. If you had special tests, such as EKG???s or X-rays, the interpretation of your tests given to you by the Emergency Department Physician is a preliminary report. Some fractures and illnesses fail to show up on preliminary tests. These will be reviewed again and we will call you if there are any new suggestions. If your symptoms continue notify your physician. After you leave, you should follow the instructions provided. What to do next Follow-Up Appointments Follow Up with [facility] When Within 1 to 2 weeks Where: [address] [place] [address]- [facility] (1) Follow Up with [facility] [address] [facility] When Within 2 to 3 days Allergies traMADol Immunizations This Visit No Immunizations Found Medications What How Much When Instructions Next Dose acetaminophen-hydrocodone ([place] 5 mg-325 mg oral tablet) 1 Tablet(s) Oral Every 6 Hours as needed for for pain Duration: 3 Day(s) Printed Prescription naproxen (Naprosyn 500 mg oral tablet) 1 Tablet(s) Oral Two Times A Day as needed for for pain naproxen (naproxen 250 mg oral tablet) 1 Tablet(s) Oral Two Times A Day Duration: 10 Day(s) Printed Prescription aspirin (Aspirin Low Dose 81 mg oral tablet) pt reports unsure of other medications atorvastatin (Lipitor 10 mg oral tablet) 1 Tablet(s) Oral Every Day cyclobenzaprine (cyclobenzaprine 10 mg oral tablet) 1 Tablet(s) Oral Three Times A Day as needed for for spasm meloxicam (Mobic 7.5 mg oral tablet) 1 Tablet(s) Oral Every Day meloxicam (Mobic 7.5 mg oral tablet) 1 Tablet(s) Oral Every Day as needed for Pain The home medications listed are only as accurate as the information you provided. Please continue taking all of your medications prescribed by your Primary Care Provider unless specifically told to change or discontinue the medication. Please direct any questions regarding your home medications to your Primary Care Provider. Take your medications faithfully. Do NOT skip medication. Do NOT stop taking medications without the direction of a physician. Carry a list of your medications with you at all times, and take this medication list with you to your first follow up visit. Report any side effects. Avoid herbal remedies unless discussed with your physician. As part of your treatment plan, your physician may have prescribed a limited course of a controlled substance. This medication may be given to help people with moderate or severe pain or for other medical conditions, but there are risks involved with treatment. Common side effects may include nausea, constipation, drowsiness, sweating, itching, dry mouth, and rash. More serious side effects may include cognitive and motor impairment, like problems with thinking, concentrating, alertness, and movement (e.g. slowed reflexes), and driving and operating heavy machinery can be dangerous. It is important for you to talk to your physician if you have these side effects or questions. These controlled substances can produce physical dependence and be habit-forming if taken for an extended period of time, which means that the body has gotten used to them and may experience withdrawal symptoms if they are abruptly stopped. Withdrawal symptoms can include runny nose, sweating, goose bumps, diarrhea, abdominal cramping, rapid heartbeat, difficulty sleeping, and nervousness. Please dispose of unused and medications per pharmacy guidance. Test Results Laboratory or Other Results This Visit (last charted value for your 06/08/2020 visit) No Laboratory or Other Results This Visit Education Materials Wrist Splint, Adult A wrist splint is a device that prevents your wrist from moving. A splint supports your wrist like a cast, but it is more flexible. It can be removed or loosened. The supporting part of a splint does not completely surround your wrist. It is held in place with an elastic band or straps. You may need a wrist splint if you have hurt your wrist or if you have a condition that causes swelling. Depending on the type of wrist problem you have, your splint may extend up your arm, onto your hand, or around your thumb. The wrist splint may be worn to: ??? Support your wrist. ??? Protect your injury. ??? Prevent further injury. ??? Prevent movement. ??? Reduce pain. ??? Help with healing. It is important to follow instructions from your health care provider about when to wear the splint to make sure your wrist heals correctly. What are the risks? The most dangerous complication of wearing a splint is having a reduced blood supply to your wrist or hand. This can happen if there is a lot of swelling or if the splint is too tight. Limited blood supply results in a condition called compartment syndrome and can cause permanent damage. Symptoms include: ??? Pain that is getting worse. ??? Tingling and numbness. ??? Changes in skin color, including paleness or a bluish color. ??? Cold fingers. Other complications of wearing a splint can include: ??? Skin irritation that can cause: ? Itching. ? Rash. ? Skin sores. ? Skin infection. ??? Wrist stiffness. This can occur if you have worn a splint for a long time. ??? Wrist weakness. How to use your wrist splint Your wrist splint should be tight enough to support your wrist without blocking your blood supply. How long you need to wear the splint depends on the type of wrist problem you have. Your health care provider will instruct you about how to wear your wrist splint and how long to wear it. Splint wear ??? Wear the splint as told by your health care provider. Remove it only as told by your health care provider. ??? Loosen the splint if your fingers tingle, become numb, or turn cold and blue. ??? Keep the splint clean. ??? If the splint is not waterproof: ? Do not let it get wet. ? Cover it with a watertight covering when you take a bath or a shower. ??? Do not stick anything inside the splint to scratch your skin. Doing that increases your risk of infection. ??? Check the skin under the splint for any redness or blisters every time you take off the splint. Tell your health care provider about any concerns. Managing pain, stiffness, and swelling ??? If directed, put ice on the injured area. ? If you a have a removable splint, remove it as told by your health care provider. ? Put ice in a plastic bag. ? Place a towel between your skin and the bag. ? Leave the ice on for 20 minutes, 2???3 times a day. ??? Move your fingers often to avoid stiffness and to lessen swelling. ??? Raise (elevate) the injured area above the level of your heart while you are sitting or lying down. Activity ??? Return to your normal activities as told by your health care provider. Ask your health care provider what activities are safe for you. ??? Do exercises as told by your health care provider. ??? Ask your health care provider when it is safe to drive with a splint on your wrist. General instructions ??? Do not use the injured limb to support (bear) your body weight until your health care provider says that you can. ??? Do not put pressure on any part of the splint until it is fully hardened. This may take several hours. ??? Do not use any products that contain nicotine or tobacco, such as cigarettes and e-cigarettes. If you need help quitting, ask your health care provider. ??? Take wbcy-why-iyknzoj and prescription medicines only as told by your health care provider. ??? Keep all follow-up visits as told by your health care provider. This is important. Contact a health care provider if: ??? You have wrist pain or swelling that does not go away. ??? The skin around or under your splint becomes red, itchy, or moist. ??? You have chills or a fever. ??? Your splint feels too tight or too loose. ??? Your splint gets damaged. Get help right away if: ??? You have pain that is getting worse. ??? You have tingling and numbness. ??? You have changes in skin color, including paleness or a bluish color. ??? Your fingers are cold. Summary ??? A wrist splint is a flexible device that supports your wrist and prevents it from moving. ??? Follow instructions from your health care provider about when to wear the splint to make sure your wrist heals correctly. ??? Icing, moving your fingers, and raising (elevating) your wrist above the level of your heart will help you manage pain, stiffness, and swelling. ??? The most dangerous complication of wearing a splint is having a reduced blood supply to your wrist or hand. If your fingers tingle, become numb, or turn cold and blue, loosen the splint and get help right away. This information is not intended to replace advice given to you by your health care provider. Make sure you discuss any questions you have with your health care provider. Document Released: 08/03/2007 Document Revised: 12/09/2019 Document Reviewed: 11/08/2017 Elsevier Patient Education ?? 2020 [employer] Hand Pain Many things can cause hand pain. Some common causes are: ??? An injury. ??? Repeating the same movement with your hand over and over (overuse). ??? Osteoporosis. ??? Arthritis. ??? Lumps in the tendons or joints of the hand and wrist (ganglion cysts). ??? Nerve compression syndromes (carpal tunnel syndrome). ??? Inflammation of the tendons (tendinitis). ??? Infection. Follow these instructions at home: Pay attention to any changes in your symptoms. Take these actions to help with your discomfort: Managing pain, stiffness, and swelling ??? Take eyhu-ubo-kvhcixv and prescription medicines only as told by your health care provider. ??? Wear a hand splint or support as told by your health care provider. ??? If directed, put ice on the affected area: ? Put ice in a plastic bag. ? Place a towel between your skin and the bag. ? Leave the ice on for 20 minutes, 2???3 times a day. Activity ??? Take breaks from repetitive activity often. ??? Avoid activities that make your pain worse. ??? Minimize stress on your hands and wrists as much as possible. ??? Do stretches or exercises as told by your health care provider. ??? Do not do activities that make your pain worse. Contact a health care provider if: ??? Your pain does not get better after a few days of self-care. ??? Your pain gets worse. ??? Your pain affects your ability to do your daily activities. Get help right away if: ??? Your hand becomes warm, red, or swollen. ??? Your hand is numb or tingling. ??? Your hand is extremely swollen or deformed. ??? Your hand or fingers turn white or blue. ??? You cannot move your hand, wrist, or fingers. Summary ??? Many things can cause hand pain. ??? Contact your health care provider if your pain does not get better after a few days of self care. ??? Minimize stress on your hands and wrists as much as possible. ??? Do not do activities that make your pain worse. This information is not intended to replace advice given to you by your health care provider. Make sure you discuss any questions you have with your health care provider. Document Released: 09/16/2016 Document Revised: 05/17/2019 Document Reviewed: 05/17/2019 Elsevier Patient Education ?? 2020 [employer] Emergency Awareness and Preventative Care STROKE is an EMERGENCY Every Minute Counts Act FAST and Check for these signs: FACE Does the face look uneven? ARM Does one arm drift down? SPEECH Does their speech sound strange? TIME Call at any sign of stroke Stroke Risk Factors Atrial Fibrillation (irregular heartbeat) Diabetes Family history of stroke Heart Disease Heavy alcohol use High Blood Pressure High Cholesterol Physical inactivity and obesity Smoking Cigarette Smoking The facts are clear, cigarette smoking will shorten your life. Smoking can cause many illnesses along the way. As a healthcare provider, we recommend that you stop smoking. Assistance with quitting is available by contacting 4-754-IVSJ-NOW. This is a free resource providing counseling, support, and referral. Or you may contact your personal physician. The Moment Suicide Prevention Lifeline: The National Suicide Prevention Lifeline is a national network of local crisis centers that provides free and confidential emotional support to people in suicidal crisis or emotional distress 24 hours a day, 7 days a week. Don't Wait! Stop a Heart Attack Before it Starts What is a heart attack? A heart attack is damage or to a part of the heart from severely decreased or lack of blood flow to the heart. Over time, arteries can become narrow from the buildup of fat and cholesterol, which is called plaque. The plaque can rupture causing a blood clot to form. When the blood clot forms, the artery can become severely narrowed or completely blocked, causing a heart attack. Heart attack is the leading cause of in the [place]. 85% of muscle damage occurs within the first 2 hours. Delay in the recognition of heart attack symptoms increases the chances of . Know the early symptoms of a heart attack: Nausea Feeling of fullness in chest Jaw Pain Pain that travels down one or both arms Fatigue/being tired Anxiety Back Pain Chest pressure, squeezing, or discomfort Shortness of breath Sweating, or a cold sweat Feeling of impending doom There are unusual signs of a heart attack, too! Women, the elderly, and diabetics may present with atypical symptoms: Fainting/dizziness Weakness Confusion Risk Factors for a Heart Attack Some heart disease risk factors, such as age and family history, cannot be changed. Others, like smoking and lack of exercise, can be changed. Smoking High Cholesterol High Blood Pressure Family History Obesity Age Gender (Males are at higher risk) Lack of Exercise Diabetes Diet Stress Excessive Alcohol Intake If you or someone you know is experiencing the signs and symptoms of a heart attack, DON???T DELAY. Call immediately and seek help. If someone collapses, perform CPR! Do not attempt to drive if you are having symptoms of heart attack. Hands-Only CPR Why Hands-Only CPR? Hands-Only CPR has been shown to be as effective as conventional CPR for cardiac arrests that occur outside of a hospital. Survival depends on immediately receiving CPR from someone nearby. How do you perform Hands-Only CPR? There are two easy steps: Call if you see a teen or adult collapse Push hard and fast in the center of the chest at a beat of 100 beats per minute. Save a life! 4 WAYS TO GET AHEAD OF SEPSIS SEPSIS is a MEDICAL EMERGENCY. Time matters! Infections put you and your family at risk for a life-threatening condition called sepsis. Sepsis is the body's extreme response to an infection. It is life-threatening, and without timely treatment, sepsis can rapidly lead to tissue damage, organ failure, and . Sepsis happens when an infection you already have-in your skin, lungs, urinary tract or somewhere else-triggers a chain reaction throughout your body. 1 PREVENT INFECTIONS Take good care of chronic conditions. Talk to your doctor about getting the recommended vaccines. 2 PRACTICE GOOD HYGIENE Wash your hands frequently. Keep cuts or open sores clean and covered until they are healed. 3 KNOW THE SYMPTOMS Confusion or disorientation Shortness of breath High heart rate Fever, shivering, or feeling very cold Extreme pain or discomfort Clammy or sweaty skin 4 ACT FAST Get medical care IMMEDIATELY if you suspect sepsis or if you have an infection that is not getting better or is getting worse. To learn more about sepsis and how to prevent infections, visit www.cdc.gov/sepsis. The examination and treatment you have received in the Emergency Department has been done to provide an appropriate evaluation and stabilizing treatment on an emergency basis only. Given the limited resources, it is not meant to be a substitute for complete medical care. The follow-up doctor you named will receive a copy of your records and all test reports. IT IS IMPORTANT THAT YOU SCHEDULE A FOLLOW-UP APPOINTMENT AND ARE RE-EVALUATED. You should report any new complaints, symptoms, or remaining problems at that time. IT IS IMPOSSIBLE FOR THE EMERGENCY DEPARTMENT TO RECOGNIZE AND TREAT ALL ELEMENTS OF INJURY OR ILLNESS IN A SINGLE VISIT. If you have been referred to a specialist physician, it means that we believe you may have a condition that requires the expertise of a specialist. These physicians work in partnership with the hospital and have agreed to see referred patients in their office for further evaluation. KEEP IN MIND THAT THE SPECIALIST HAS HIS/HER OWN OFFICE POLICIES WHICH MAY REQUIRE PROPER INSURANCE OR PAYMENT UP FRONT BEFORE THE SPECIALIST WILL SEE YOU. It is your responsibility to call the specialist physician to make an appointment. We do not have the ability to refer patients to specialists/physicians that work with specific insurance companies. Please be advised that all financial charges or billing practices are determined by that practice, not the hospital. If your insurance company requires that you see a specialist from their approved list, it is your responsibility to contact your insurance company to make those arrangements. It is also your responsibility to follow any other requirements of your insurance company necessary to obtain coverage for claims submitted. We will bill your insurance; however, you are responsible today for any co-pay amounts. You will receive a separate bill for any services you may have received including: emergency, radiology, or pathology physicians. Patient Name:JACOBS GISEL Bianchi I have received this information and was given the opportunity to ask questions. Patient/Molding Associate Name: Patient/Molding Associate Signature: Relationship to Patient: Clinician/Hospital Molding Associate Signature: Please Provide a Telephone Number Where You Can Be Reached: Is it Permissible To Leave a Message? Date: Electronically signed by Porter, [facility] Conversion Assembly Department Supervisor Juan Antonio at 12/23/2022 1:37 PM CDT documented in this encounter Plan of Treatment Not on file documented as of this encounter Visit Diagnoses Not on filedocumented in this encounter
--- NOTE | 2025-03-24 15:00 | CA_ITS ---
FINAL REPORT CLINICAL HISTORY: claudication, HTN, HLD, smoker, hx CABG x 3, right foot numbness. FINDINGS: Right lower extremity, flow velocities (cm per second): Common femoral artery: 171 Profunda: 177 Proximal SFA: 441 Mid SFA 92 Distal SFA: 71 Proximal posterior tibial artery: 45 Mid posterior tibial artery: 39 Distal posterior tibial artery: 39 Proximal peroneal artery: 28 Mid peroneal artery: 38 Distal peroneal artery: 27 Left lower extremity, flow velocities (cm per second): Common femoral artery: 68 Profunda: 31 Proximal SFA: 84 Mid SFA: 57 Distal SFA: 33 Proximal posterior tibial artery: 24 Mid posterior tibial artery: 37 Distal posterior tibial artery: 27 Proximal peroneal artery: 29 Mid peroneal artery: 25 Distal peroneal artery: 15 Elevated flow velocities within the right proximal SFA and PESTICIDE APPLICATOR. Findings are suggestive of a focal stenosis. Overall diminished flow velocities are seen otherwise. Monophasic flow is seen throughout. These findings are suggestive of a more proximal stenosis within the aortoiliac system. 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 Focal stenosis in the region of the right PESTICIDE APPLICATOR/proximal SFA. CTA correlation is recommended. Reviewed, Interpreted and Dictated by Shelli Cotto MD Transcribed by Rocio Moreno Authenticated and [facility]
== END 2025-03-24 23:59 | disposition home or self-care (01) ==
PROVIDERS: PCP Nurse Practitioner; Visit Provider Physician Assistant
DX: I73.9 Peripheral vascular disease, unspecified (principal); I25.10 Atherosclerotic heart disease of native coronary artery without angina pectoris; E78.5 Hyperlipidemia, unspecified; F17.200 Nicotine dependence, unspecified, uncomplicated; R20.0 Anesthesia of skin; R93.89 Abnormal findings on diagnostic imaging of other specified body structures; Z95.1 Presence of aortocoronary bypass graft
CPT/HCPCS: 93925

== ENCOUNTER 2025-04-03 10:31 | Outpatient (CLI) | payer MEDICARE, MEDICAID, SELFPAY ==
--- OUTSIDE RECORDS SUMMARY | 2025-02-17 13:50 | XMS_ITS | Encounter Summary ---
Author Organization [facility] Address [address] [place] [address] Care Team Providers Care [employer] Name Role Phone Chad Lucita DIAS Primary Care Provider [phone] Reason for Visit * Reason Comments Consult * Consultation (Routine) - Closed Specialty Diagnoses / Procedures Referred By Frances huang Referred To Contact Rheumatology Diagnoses Other specified abnormal immunological findings in serum Naima Bonilla PA [address] [place] [address] Phone: tel: fax: [facility] [address] [place] [address] Phone: tel: fax: Referral ID Status Reason Start Date Expiration Date V isits Requested Visits Authorized [id number] Closed Specialty Services Required 11/29/2024 05/31/2026 1 1 Encounter Details Date Type Department Care Team (Late st Contact Info) Description 02/17/2025 1:50 PM EDT Consult [facility] [address] [place] [address] Moraima Richard APRN [address] [place] [address] Positive NELSY (antinuclear antibody) (Primary Dx); Polyarthralgia Social History Tobacco Use Types Packs/Day Years Used Date Smoking Tobacco: Every Day Cigarettes 1 50 Passive Smoke Exposure: Current Smokeless Tobacco: Never Tobacco Cessation:Ready to Q uit: Not Asked; Counseling Given: Not Answered Alcohol Use Standard Drinks/Week Comments Never 0 (1 standard drink = 0.6 oz pur e alcohol) PHQ-2 Answer Date Recorded Patient Health Questionnaire-2 Score 0 02/17/2025 PHQ-9 Answer Date Recorded Patient Health Questionnaire-9 Score 0 02/17/2025 Comments No Sex and Gender Information Value Date Recorded Sex Assigned at Female 12/05/2023 5:10 AM EDT Legal Sex Female 7:50 PM EDT Gender Identity Female 12/05/2023 5:10 AM EDT Sexual Orientation Not on file documented as of this encounter Last Filed Vital Signs Vital Sign Reading Time Taken Comments Blood Pressure 137/79 02/17/2025 1:34 PM EDT Pulse 82 02/17/2025 12:50 PM EDT Temperature 36.9 C (98.5 F) 02/17/2025 12:50 PM EDT Respiratory Rate 16 02/17/2025 12:50 PM EDT Oxygen Saturation 98% 02/17/2025 12:50 PM EDT Inhaled Oxygen Concentration - - Weight 59.7 kg (131 lb 9.8 oz) 02/17/2025 12:50 PM EDT Height 154.9 cm (5' 1 ) 02/17/2025 12:50 PM EDT Body Mass Index 24.87 02/17/2025 12:50 PM EDT documented in this encounter Functional Status * Over the past 2 weeks, how often have you been bothered by any of the following problems? Question Answer Date of Assessment Author Little interest or pleasure in doing things Not at all 02/17/2025 12:55 PM EDT Keren Nickerson Feeling down, depressed, or hopeless Not at all 02/17/2025 12:55 PM EDT Keren Nickerson Patient Health Questionnaire -2 Score 0 02/17/2025 12:55 PM EDT Keren Nickerson * Question Answer Date of Assessment Author Trouble falling or staying a sleep, or sleeping too much Not at all 02/17/2025 12:55 PM EDT Keren Nickerson Feeling tired or having syed le energy Not at all 02/17/2025 12:55 PM EDT Keren Nickerson Poor appetite or overeating Not at all 02/17/2025 12 :55 PM EDT Keren Nickerson Feeling bad about yourself - or that you are a failure or have let yourself or your family down Not at all 02/17/2025 12:55 PM EDT Keren Jo Trouble concentrating on thi ngs, such as reading the newspaper or watching television Not at all 02/17/2025 12:55 PM EDT Keren Nickerson Moving or speaking so slowly that other people could have noticed? Or the opposite - being so fidgety or restless that you have been moving around a lot more than usual. Not at all 02/17/2025 12:55 PM EDT Keren Nickerson Thoughts that you would be b tay off or hurting yourself in some way Not at all 02/17/2025 12:55 PM EDT Keren Nickerson Patient Health Questionnaire -9 Score 0 02/17/2025 12:55 PM EDT Keren Nickerson * If you checked off any problems on this questionnaire so far, Question Answer Date of Assessment Author How difficult have these problems made it for you to do your work, take care of things at home, or get along with other people? Not difficult at all 02/17/2025 12:55 PM EDT Keren Nickerson documented as of this encounter Miscellaneous Notes * Progress Notes - Moraima Richard APRN - 02/17/2025 1:50 PM EDT Images from the original note were not included. Subjective Patient ID: Gisel Vazquez is a 65 y.o. female with Chief Complaint Patient presents with Consult HPI Gisel Vazquez is a 65 y.o. female with PMHx for HLD, HTN, CAD s/p CABG 2011, COPD, who presentsas a new consult evaluation for +NELSY. Pt was referred by Naima Bonilla PA Referral note and labs reviewed: +NELSY 1>1280, centromere, normal crp/sed rate, -RF Today (02/17/25): Pt reports she has been seeing her PCP for complaints of hypertension. Pt does endorse joint pain, primarily in her hips, legs, and hands. Pain in constant. She has taken OTC medications without any benefit. Activity makes the pain worse. She denies any color, temperature, or swelling of the joints. She has been seen by a pain clinic, who did an MRI of her back. She reports getting shots. However, these are not helpful. She continues to see pain management. Denies any morning stiffness. She reports her hips will bother her, that radiate into her legs and down into her feet. Her foot will occasionally become numb, R>L, Rheumatological ROS positive for: n/a Rest ROS negative for dry eyes, dry mouth, oral ulcers, nasal ulcers, serositis, psoriasis, rash, photosensitivity, alopecia, Raynaud's symptoms or digit ulcerations, renal disease or macroscopic hematuria, psychosis or delirium, seizures, IBD, uveitis or episcleritis, blood clots or miscarriages. No history of thyroid disease or DM. No known exposure to HCV or HIV. No hx IV drug use. Unsure of family hx and autoimmune diseases. Review of Systems Constitutional: Negative for chills, fatigue and fever. HENT: Negative for mouth sores and trouble swallowing. Eyes: Negative for pain, redness and visual disturbance. Respiratory: Negative for cough and shortness of breath. Cardiovascular: Negative for chest pain and palpitations. Gastrointestinal: Negative for diarrhea and nausea. Genitourinary: Negative for hematuria. Musculoskeletal: Positive for arthralgias and back pain. Negative for joint swelling, neck pain andneck stiffness. See HPI Skin: Negative for rash. Neurological: Positive for numbness (right foot). Negative for seizures. Psychiatric/Behavioral: Negative for hallucinations. The following portions of the chart were reviewed this encounter and updated as appropriate: Past Medical History[1] Surgical History[2] Social History Socioeconomic History Marital status: Unknown Spouse name: Not on file Number of children: Not on file Years of education: Not on file Highest education level: Not on file Occupational History Not on file Tobacco Use Smoking status: Every Day Current packs/day: 1.00 Average packs/day: 1 pack/day for 50.0 years (50.0 ttl pk-yrs) Types: Cigarettes Passive exposure: Current Smokeless tobacco: Never Vaping Use Vaping status: Never Used Substance and Sexual Activity Alcohol use: Never Drug use: Never Sexual activity: Defer Other Topics Concern Not on file Social History Narrative Not on file Social Drivers of Health Financial Resource Strain: Not on file Food Insecurity: Not on file Transportation Needs: Not on file Physical Activity: Not on file Stress: Not on file Social Connections: Unknown (06/12/2023) Received from [facility] Family and Community Support Help with Day-to-Day Activities: Not on file Lonely or Isolated: Not on file Intimate Partner Violence: Not At Risk (09/20/2023) Received from [facility] Abuse Screen Feels Unsafe at Home or Work/School: no Feels Threatened by Someone: no Does Anyone Try to Keep You From Having Contact with Others or Doing Things Outside Your Home?: no Physical Signs of Abuse Present: no Housing Stability: Unknown (06/12/2023) Received from [facility] Housing Stability Current Living Arrangements: Not on file Potentially Unsafe Housing Conditions: Not on file Family History[3] Allergies[4] Current Medications[5] Objective Vitals: 02/17/25 1250 BP: (!) 152/79 Pulse: 82 Resp: 16 Temp: 36.9 ??C (98.5 ??F) SpO2: 98% Physical Exam Vitals reviewed. Constitutional: General: She is not in acute distress. Pulmonary: Effort: Pulmonary effort is normal. Musculoskeletal: General: Tenderness present. No swelling. Normal range of motion. Comments: Digits and nails were normal. See homunculus. Joints had a normal ROM and normal alignment. Skin: General: Skin is warm and dry. Findings: No rash. Neurological: Mental Status: She is alert and oriented to person, place, and time. Psychiatric: Mood and Affect: Mood normal. Joint Exam 02/17/2025 Right Left PIP 3 (finger) Tender Tender PIP 4 (finger) Tender PIP 5 (finger) Tender Tender Lumbar Spine Tender Hip Tender Tender Tarsometatarsal Tender 02/17/2025 SANCHEZ-28 (ESR) -- SANCHEZ-28 (CRP) -- Tender (SANCHEZ-28) 5 Swollen (SANCHEZ-28) 0 Provider Global -- Patient Global -- ESR -- CRP -- Swollen Joint Count: Swollen: 0 Tender Joint Count: Tender: 9 Patient global assessment: /10 Rapid 3 score: 14.7/30 CDAI: 5 Assessment/Plan Diagnosis Plan 1. Positive NELSY (antinuclear antibody) Anti-scleroderma antibody RNA Polymerase III Antibody, IgG Centromere Antibody, IgG Anti-scleroderma antibody PM/Scl-100 Antibody, IgG by Immunoblot (SO) RNA Polymerase III Antibody, IgG Protein electrophoresis, serum Cryoglobulin, Serum (SO) Antinuclear Antibody (NELSY), HEp-2, IgG C3 Complement C4 Complement Double-Stranded DNA (dsDNA) Antibody, IgG by IFA Creatinine, Random, Urine ENAI ENAII Callahan (LILIBETH) Antibody, IgG Protein, Random, Urine with Creatinine Rheumatoid Factor, Plasma Cyclic Citrul Peptide Antibody IgG XR Hand and Wrist Bilateral 2 Views XR Hips Bilateral 2 Views T3 T4, free Thyroglobulin Antibody (Inhouse) Thyroid Peroxidase Antibody TSH 2. Polyarthralgia Anti-scleroderma antibody RNA Polymerase III Antibody, IgG Centromere Antibody, IgG Anti-scleroderma antibody PM/Scl-100 Antibody, IgG by Immunoblot (SO) RNA Polymerase III Antibody, IgG Protein electrophoresis, serum Cryoglobulin, Serum (SO) Antinuclear Antibody (NELSY), HEp-2, IgG C3 Complement C4 Complement Double-Stranded DNA (dsDNA) Antibody, IgG by IFA Creatinine, Random, Urine ENAI ENAII Callahan (LILIBETH) Antibody, IgG Protein, Random, Urine with Creatinine Rheumatoid Factor, Plasma Cyclic Citrul Peptide Antibody IgG XR Hand and Wrist Bilateral 2 Views XR Hips Bilateral 2 Views T3 T4, free Thyroglobulin Antibody (Inhouse) Thyroid Peroxidase Antibody TSH +NELSY (1:>2560, OSH) Polyarthralgia Pt does not have any overt symptoms of underlying autoimmune disease. Arthalgia seems to be MSK>inflammatory She denies any calcinosis, raynaud's, esophageal dysmotility. Skin thickening, or telangectasia -rheum labs -baseline imaging RTC prn px results ADDENDUM: GIVEN HIGH TITER NELSY AND CENTROMERE WILL OBTAIN ADDITIONAL LABS, ILD WORKUP, AND MONITOR Q 6 MONTHS Note to patient: The Century Cures Act makes medical notes like these available to patients inthe interest of transparency. However, please be advised that this is a medical document. It is intended as [id number] communication. It is written in medical language and may contain abbreviationsor verbiage that are unfamiliar. It may appear blunt or direct. Medical documents are intended to carry relevant information, fact as evident, and the clinical opinion of the practitioner. The patient was counseled about diagnostic results, instruction for management, risk factors reduction, prognosis, compliance with visits and treatment, risks and benefits of treatments options. Prior notes (by external physicians) and results were reviewed by me with independent interpretation of labs and imaging. My note will be sent to PCP and other consulting physicians. [1] Past Medical History: Diagnosis Date COPD (chronic obstructive pulmonary disease) ([facility]) Coronary artery disease GERD (gastroesophageal reflux disease) Hypertension [2] Past Surgical History: Procedure Laterality Date CORONARY ARTERY BYPASS GRAFT HYSTERECTOMY TYMPANOPLASTY Left repair hole in eardrum [3] Family History Problem Relation Name Age of Onset Anesthesia problems Neg Hx Malig Hyperthermia Neg Hx [4] Allergies Allergen Reactions Ibuprofen Nausea [5] Current Outpatient Medications Medication Sig Dispense Refill acetaminophen (Tylenol) 325 MG tablet Take 2 tablets (650 mg) by mouth every 6 (six) hours if needed for pain, headaches or fever. 120 tablet 0 acetaminophen (Tylenol) 325 MG tablet Take 2 tablets (650 mg) by mouth every 4 (four) hours if needed for pain. 60 tablet 0 albuterol (Ventolin HFA) 108 (90 Base) MCG/ACT inhaler Inhale 2 puffs every 4 (four) hours if needed. ASPIRIN 81 MG chewable tablet Chew 1 tablet (81 mg) 1 (one) time each day. atorvastatin (Lipitor) 40 MG tablet Take 1 tablet (40 mg) by mouth 1 (one) time each day. budesonide-formoterol (Symbicort) 160-4.5 MCG/ACT inhaler Inhale 1 puff if needed. carvedilol (Coreg) 6.25 MG tablet Take 2 tablets (12.5 mg) by mouth twice a day. ibuprofen 600 MG tablet Take 1 tablet (600 mg) by mouth every 6 (six) hours if needed for mild painor moderate pain. 80 tablet 0 ibuprofen 600 MG tablet Take 1 tablet (600 mg) by mouth every 6 (six) hours if needed for mild pain. 60 tablet 0 lidocaine (Xylocaine) 5 % ointment Apply to perineum three times per day as needed for pain 30 g 2 lidocaine (Xylocaine) 5 % ointment Apply to perineum up to twice daily as needed. 28 g 0 lisinopril 40 MG tablet Take 1 tablet (40 mg) by mouth 1 (one) time each day. loratadine (Claritin) 10 MG tablet Take 1 tablet (10 mg) by mouth 1 (one) time each day. metoclopramide (Reglan) 5 MG tablet Take 1 tablet (5 mg) by mouth 4 (four) times a day if needed (reflux, nausea). 28 tablet 0 metoprolol tartrate (Lopressor) 50 MG tablet Take 1 tablet (50 mg) by mouth 2 (two) times a day. omeprazole (PriLOSEC) [address] capsule Take 1 capsule (40 mg) by mouth 1 (one) time each day. Do not crush or chew. ondansetron (Zofran) 4 MG tablet Take 1 tablet (4 mg) by mouth every 8 (eight) hours if needed for nausea or vomiting. 10 tablet 5 ondansetron ODT (Zofran-ODT) 4 MG disintegrating tablet Take 1 tablet (4 mg) by mouth every 6 (six)hours if needed for nausea or vomiting. 10 tablet 1 oxyCODONE (Roxicodone) 5 MG immediate release tablet Take 1 tablet (5 mg) by mouth every 4 (four) hours if needed for severe pain. 3 tablet 0 pantoprazole (Protonix) 40 MG EC tablet Take 1 tablet (40 mg) by mouth 1 (one) time each day beforebreakfast. Do not crush, chew, or split. 30 tablet 3 phenazopyridine (Pyridium) 100 MG tablet Take 1 tablet (100 mg) by mouth 3 (three) times a day if needed for pain. 10 tablet 0 polyethylene glycol (Miralax) 17 g packet Take 17 g by mouth 1 (one) time each day if needed (constipation). 30 packet 0 RABEprazole (Aciphex) 20 MG EC tablet senna (Senokot) 8.6 MG tablet Take 2 tablets (17.2 mg) by mouth at night if needed for constipation. 60 tablet 0 simethicone (Mylicon) 80 MG chewable tablet Chew 1 tablet (80 mg) every 6 (six) hours if needed (gas pain). 60 tablet 0 tiotropium (Spiriva) [address] 1 capsule (18 mcg) into inhaler and inhale 1 (one) time each day. traZODone (Desyrel) 50 MG tablet Take 1 tablet (50 mg) by mouth every night. No current facility-administered medications for this visit. * Moraima Chauhna APRN - 02/17/2025 1:28 PM EDT Images from the original note were not included. All About Arthritis - Video Arthritis refers to a group of disorders that involve the body?s joints and have similar symptoms, including pain, stiffness, and swelling. Learn about the different types of arthritis and their treatment. To view the video go to this web address: https://bit.ly/2H23YSJ Or, scan this QR code with your smart phone Last Reviewed Date: 2020 00:00:00 ?? [employer]. All rights reserved. This information is not intended as a substitute for professional medical care. Always follow your healthcare professional's instructions. * Moraima Chauhan APRN - 02/17/2025 1:28 PM EDT Images from the original note were not included. Osteoarthritis - Video Osteoarthritis most commonly affects the knees, hips, spine, and other weight- bearing joints in thebody. Sometimes called the wear and tear arthritis, advancing age is a risk factor, but so are obesity and severe injury to the joint. This video discusses the symptoms, treatment, and steps you can take to minimize pain from osteoarthritis. To view the video go to this web address: https://bit.ly/3WFddSZ Or, scan this QR code with your smart phone Last Reviewed Date: 2021 00:00:00 ?? [employer]. All rights reserved. This information is not intended as a substitute for professional medical care. Always follow your healthcare professional's instructions. * Moraima Chauhan APRN - 02/17/2025 1:28 PM EDT Images from the original note were not included. antinuclear_antibodies Antinuclear Antibody Does this test have other names? NELSY, fluorescent antinuclear antibody test, JUDD What is this test? This blood test is done to help your healthcare provider find out if you have an autoimmune disease. This kind of disease happens when your immune system attacks your normal cells. Your immune system is your body's defense system. It protects you against foreign invaders like viruses and bacteria. In some cases, your immune system can become confused. It can think that normal cells in your body are foreign invaders. When that happens, your body can make proteins called antibodies that attack your own cells. When antibodies attack cells in your body, such as in your joints, they can cause swelling and redness known as inflammation. Antinuclear antibodies attack normal proteins in the center structure (nucleus) of your body's cells. Antinuclear antibodies are found in many autoimmune diseases. These include lupus, scleroderma, and rheumatoid arthritis. Why do I need this test? Your health care provider may order this test if you have symptoms of an autoimmune disease. Commonsymptoms of autoimmune diseases that may stem from antinuclear antibodies include: ? A fever. ? Joint pain. ? Weight loss. ? Skin rash. ? Tiredness. What other tests might I have along with this test? Finding antinuclear antibodies in your blood tells your health care provider only that you may havean autoimmune disease. It doesn't tell which disease you have. Your provider may order other tests depending on your symptoms and your physical exam. What do my test results mean? Many things may affect your lab test results. These include the method each lab uses to do the test. Even if your test results are different from the normal value, you may not have a problem. To learn what the results mean for you, talk with your health care provider. A positive test for NELSY does not mean you have an autoimmune disease. The test finds small amounts of these antibodies in up to 15% of healthy people. Antinuclear antibodies are measured in titers. Atiter above 1:160 is usually seen as a positive test result. A positive result may mean: ? You have systemic lupus erythematosus, or SLE. About 95% of people with this autoimmune disease test positive for antinuclear antibodies. ? You have another type of autoimmune disease. ? You have a short-term condition, like an infection, that's causing your antinuclear antibodies togo up. ? You are one of the 15% of normal people who have positive antinuclear antibodies without any disease. How is this test done? The test requires a blood sample, which is drawn through a needle from a vein in your arm. Does this test pose any risks? Taking a blood sample with a needle carries small risks that include bleeding, infection, bruising,and a sense of lightheadedness. When the needle pricks your arm, you may have a slight stinging feeling or pain. Afterward, the site may be a little sore. What might affect my test results? Many conditions can trigger a positive antinuclear antibody test even without an autoimmune disease. Conditions that may cause a false positive test include: ? Being older than 65. ? Having cancer. ? Taking certain medicines. ? Having a viral infection. ? Having a long-term infection. How do I get ready for this test? You don't need any special preparation for this test. Tell your health care provider whether you have had any recent or long-term infections. Also, let your provider know about any medicines you are taking, including pbpe-pde-uohbhlx medicines, herbs, and supplements. Last Reviewed Date: 2024 00:00:00 ?? 9909-3402 [employer]. All rights reserved. This information is not intended as a substitute for professional medical care. Always follow your healthcare professional's instructions. * [facility] - Moraima Richard APRN - 02/17/2025 1:28 PM EDT Images from the original note were not included. [id number] Understanding Polyarthritis Polyarthritis is a term for arthritis that affects five or more joints at the same time. This condition causes joint pain, stiffness, and swelling. It can occur in both children and adults. It can have many possible causes. So it?s important to try to find the cause of the condition to get the correct treatment. What causes polyarthritis? Many things can cause polyarthritis, including structural arthritis, autoimmune disease, crystal arthritis, infectious arthritis, medicine-related arthritis, and paraneoplastic syndromes (a rare complication of some cancers). Each of these causes can be related to certain conditions. ? Structural arthritis: o Osteoarthritis o Trauma ? Autoimmune disease: o Rheumatoid arthritis o Psoriatic arthritis o Sjogren's syndrome o Reactive arthritis o Myositis o Lupus o Vasculitis o Sarcoid ? Crystal arthritis: o Gout o Pseudogout ? Infectious arthritis: o Bacterial infections ? Lyme disease ? Staph infection (staphylococcus) ? Meningococcal infection o Viral infections ? Hepatitis A, B, or C ? HIV ? Rubella ? Human parvovirus B19 ? Yosi-Burris virus ? Paraneoplastic syndromes o Lambert-Eaton myasthenic syndrome o Stiff person syndrome o Encephalomyelitis o Myasthenia gravis o Cerebellar degeneration o Limbic or brainstem encephalitis o Neuromyotonia o Opsoclonus o Sensory neuropathy ? Medicine side effects most commonly from antithyroid medicines, antibiotics such as clindamycin, and immune checkpoint inhibitors. Symptoms of polyarthritis Symptoms may vary for each person, depending on the cause. They may start suddenly, or occur for a few months. Symptoms can include: ? Joint pain. ? Joint swelling. ? Warmth and redness in the affected area. ? Stiff joints. ? Decreased ability to make certain motions. In addition to joint symptoms, some people may also have rashes, sweating, unexplained weight loss,fatigue, and fever. Diagnosing polyarthritis Polyarthritis can have many possible causes, so making a diagnosis can be hard. Your health care provider will ask about your health history and do a physical exam. They will check to see which joints are affected. And they will check if the joint pain is on both sides of your body or only in joints on one side. They will ask you when your symptoms started, and how severe they have been. You may also need one or more tests such as: ? Complete blood count (CBC). This is done to look for viral infections. ? Erythrocyte sedimentation rate (ESR) and C-reactive protein (CRP) tests. These can help show if acondition is inflammatory or noninflammatory. ? Certain blood tests to look for autoimmune disease such as NELSY (antinuclear antibody), RF (rheumatoid factor) and CCP (cyclic citrullinated peptide). ? Serum uric acid. High uric acid levels may mean you have gout, although some people with high uric acid don't have gout. ? Synovial fluid tests (joint aspiration). A sample of the thick fluid between your joints may be taken and checked in a lab. ? Imaging tests. An X-ray can provide a detailed look at the bones. A CT scan or MRI can help show damage to the whole joint. Treatment for polyarthritis The goal of treatment is to reduce inflammation and manage symptoms. Depending on what is causing the polyarthritis, your health care provider may advise you to take certain medicines. These may include: ? Acetaminophen. It can provide pain relief. ? Nonsteroidal anti-inflammatory drugs (NSAIDs). They can help ease fever and pain and reduce swelling and stiffness. They include scwu-jgj-epdlous medicines such as naproxen and ibuprofen, and prescription medicines. ? Antibiotics. These can help when the cause is an infection. ? Corticosteroids. These can ease pain and control inflammation. They also slow down the immune response. They may be taken by mouth (orally) or as a shot (injection). ? Disease-modifying anti-rheumatic drugs (DMARDs). These medicines help slow down the immune systemresponse for people with certain autoimmune causes of polyarthritis. In addition, a treatment plan may include: ? Exercise. Low-impact exercise that?s easy on the joints is helpful. This includes swimming, biking, yoga, and walking. ? Heat or cold therapy. This can help to ease pain. ? A splint or sling to keep a joint from moving. This can help ease pain. Last Reviewed Date: 2024 00:00:00 ?? [id number] [employer]. All rights reserved. This information is not intended as a substitute for professional medical care. Always follow your healthcare professional's instructions. documented in this encounter Plan of Treatment Upcoming Encounters Date Type Department Care Team (Late st Contact Info) Description 07/16/2025 8:40 AM EST Office Visit [facility] [address] [place] [address] Suki Curtis MD [address] [place] [address] 08/18/2025 1:20 PM EST Office Visit [facility] [address] [place] [address] Moraima Richard, SUPERVISOR ELEMENTARY EDUCATION [address] [place] [address] documented as of this encounter Results * XR Hips Bilateral 2 Views (02/17/2025 2:08 PM EDT) Anatomical Region Laterality Modality Hip, Pelvis Bilateral Digital Radiogra phy Impressions 02/17/2025 2:33 PM EDT 1. Moderate osteoarthritis of the left hip. 2. Mild degenerative changes of the right long and little finger DIP joint. CRITICAL RESULT: No. COMMUNICATION: Per this written report. Drafted by Jc Cristina MD on 02/17/2025 2:32 PM Final report signed by Jc Cristina MD on 02/17/2025 2:33 PM Narrative 02/17/2025 2:33 PM EDT CLINICAL INDICATION: bilateral hip pain TECHNIQUE: XR HIPS BILATERAL 2 VIEWS, XR HAND WRIST BILATERAL 2 VIEWS COMPARISON: None. FINDINGS: 2 views of the hands show arthritis of the right index and long finger DIP joint. No erosive changes. No inflammatory bone formation. Soft tissues are normal. 2 views of the bilateral hip show subtle left hip joint space narrowing and minimal osteophyte formation. Pubic symphysis and sacroiliac joints are normal. No fracture or osteonecrosis. Procedure Note Jc Cristina MD - 02/17/2025 CLINICAL INDICATION: bilateral hip pain TECHNIQUE: XR HIPS BILATERAL 2 VIEWS, XR HAND WRIST BILATERAL 2 VIEWS COMPARISON: None. FINDINGS: 2 views of the hands show arthritis of the right index and long finger DIPjoint. No erosive changes. No inflammatory bone formation. Soft tissuesare normal. 2 views of the bilateral hip show subtle left hip joint space narrowingand minimal osteophyte formation. Pubic symphysis and sacroiliac jointsare normal. No fracture or osteonecrosis. IMPRESSION: 1.Moderate osteoarthritis of the left hip. 2.Mild degenerative changes of the right long and little finger DIPjoint. CRITICAL RESULT: No. COMMUNICATION: Per this written report. Drafted by Jc Cristina MD on 02/17/2025 2:32 PM Final report signed by Jc Cristina MD on 02/17/2025 2:33 PM us Moraima Richard SUPERVISOR ELEMENTARY EDUCATION IMG XR PROCEDURES Final R esult * XR Hand and Wrist Bilateral 2 Views (02/17/2025 2:08 PM EDT) Anatomical Region Laterality Modality Hand, Wrist Bilateral Digital Radiogra phy Impressions 02/17/2025 2:33 PM EDT 1. Moderate osteoarthritis of the left hip. 2. Mild degenerative changes of the right long and little finger DIP joint. CRITICAL RESULT: No. COMMUNICATION: Per this written report. Drafted by Jc Cristina MD on 02/17/2025 2:32 PM Final report signed by Jc Cristina MD on 02/17/2025 2:33 PM Narrative 02/17/2025 2:33 PM EDT CLINICAL INDICATION: bilateral hip pain TECHNIQUE: XR HIPS BILATERAL 2 VIEWS, XR HAND WRIST BILATERAL 2 VIEWS COMPARISON: None. FINDINGS: 2 views of the hands show arthritis of the right index and long finger DIP joint. No erosive changes. No inflammatory bone formation. Soft tissues are normal. 2 views of the bilateral hip show subtle left hip joint space narrowing and minimal osteophyte formation. Pubic symphysis and sacroiliac joints are normal. No fracture or osteonecrosis. Procedure Note Jc Cristina MD - 02/17/2025 CLINICAL INDICATION: bilateral hip pain TECHNIQUE: XR HIPS BILATERAL 2 VIEWS, XR HAND WRIST BILATERAL 2 VIEWS COMPARISON: None. FINDINGS: 2 views of the hands show arthritis of the right index and long finger DIPjoint. No erosive changes. No inflammatory bone formation. Soft tissuesare normal. 2 views of the bilateral hip show subtle left hip joint space narrowingand minimal osteophyte formation. Pubic symphysis and sacroiliac jointsare normal. No fracture or osteonecrosis. IMPRESSION: 1.Moderate osteoarthritis of the left hip. 2.Mild degenerative changes of the right long and little finger DIPjoint. CRITICAL RESULT: No. COMMUNICATION: Per this written report. Drafted by Jc Cristina MD on 02/17/2025 2:32 PM Final report signed by Jc Cristina MD on 02/17/2025 2:33 PM Moraima Gomez Jose Manuel CARBAJALN IMG XR PROCEDURES Final R esult * Protein, Random, Urine with Creatinine (02/17/2025 1:57 PM EDT) Protein, Urine 27 mg/dL 02/17/2025 4:44 PM EDT [facility] Creatinine, Urine 71 mg/dL 02/17/2025 4:44 PM EDT [facility] Protein/Creatin ine Ratio 0.4 mg/mg Creat 02/17/2025 4:44 PM EDT [facility] Urine Urine specimen obtained by clean catch procedure / Unknown Non-blood Collection / Unknown 02/17/2025 1:57 PM EDT 02/17/2025 1:57 PM EDT Moriama Gomez Jose Manuel DIAS LAB URINE ORDERABLES Maribel l Result [facility] [address] [place] [address] * TSH (02/17/2025 1:56 PM EDT) Thyroid Stimulating Hormone, Plasma 1.62 0.40 - 4.20 uIU/mL 02/17/2025 3:29 PM EDT [facility] Blood Venous blood specimen / Unknown Venipuncture / Unknown 02/17/2025 1:56 PM EDT 02/17/2025 1:56 PM EDT Moraima Gomez Jose Manuel DIAS LAB BLOOD ORDERABLES Maribel l Result [facility] [address] [place] [address] * Thyroid Peroxidase Antibody (02/17/2025 1:56 PM EDT) Thyroid Peroxidase Antibody <5 <=8 IU/mL 02/17/2025 3:37 PM EDT [facility] Blood Venous blood specimen / Unknown Venipuncture / Unknown 02/17/2025 1:56 PM EDT 02/17/2025 1:56 PM EDT us Moraima Richard APRN LAB BLOOD ORDERABLES Maribel l Result Performing Organization Address City/[facility]/ZIP Co de Phone Number [facility] [address] [place] [address] * Thyroglobulin Antibody (Inhouse) (02/17/2025 1:56 PM EDT) Thyroglobulin Antibody <1.0 <4.0 IU/mL 02/17/2025 3:51 PM EDT [facility] Blood Venous blood specimen / Unknown Venipuncture / Unknown 02/17/2025 1:56 PM EDT 02/17/2025 1:56 PM EDT us Moraima Richard APRN LAB BLOOD ORDERABLES Maribel l Result Performing Organization Address City/[facility]/ZIP Co de Phone Number [facility] [address] [place] [address] * T4, free (02/17/2025 1:56 PM EDT) Free T4, Plasma 1.2 0.8 - 1.7 ng/dL 02/17/2025 3:29 PM EDT [facility] Blood Venous blood specimen / Unknown Venipuncture / Unknown 02/17/2025 1:56 PM EDT 02/17/2025 1:56 PM EDT Moraima Richard SUPERVISOR ELEMENTARY EDUCATION LAB BLOOD ORDERABLES Maribel l Result [facility] [address] [place] [address] * T3 (02/17/2025 1:56 PM EDT) T3, Serum 130 87 - 187 ng/dL 02/17/2025 5:09 PM EDT [facility] Blood Venous blood specimen / Unknown Venipuncture / Unknown 02/17/2025 1:56 PM EDT 02/17/2025 1:56 PM EDT Moraima Richard APRN LAB BLOOD ORDERABLES Maribel l Result Performing Organization Address City/[facility]/[place] [address] * Cyclic Citrul Peptide Antibody IgG (02/17/2025 1:56 PM EDT) Cyclic Citrul Peptide Antibody IgG <5.0 <=5.0 U/mL 02/17/2025 3:52 PM EDT [facility] Blood Venous blood specimen / Unknown Venipuncture / Unknown 02/17/2025 1:56 PM EDT 02/17/2025 1:56 PM EDT Moraima Richard APRN LAB BLOOD ORDERABLES Maribel l Result Performing Organization Address [facility]/[place] [address] * Rheumatoid Factor, Plasma (02/17/2025 1:56 PM EDT) Pathologist [facility] Rheumatoid Factor, Plasma <10 <14 IU/mL 02/17/2025 5:09 PM EDT [facility] Blood Venous blood specimen / Unknown Venipuncture / Unknown 02/17/2025 1:56 PM EDT 02/17/2025 1:56 PM EDT Moraima Richard SUPERVISOR ELEMENTARY EDUCATION LAB BLOOD [place]AB[place] [address] * Callahan (LILIBETH) Antibody, IgG (02/17/2025 1:56 PM EDT) Callahan (LILIBETH) Antibody, IgG 5 0 - 40 AU/mL 02/19/2025 1:27 PM EDT [facility] ([facility]) Serum 02/17/2025 1:56 PM EDT 02/17/2025 1:56 PM EDT Narrative [facility] ([facility]) - 02/19/2025 1:27 PM EDT INTERPRETIVE INFORMATION: Callahan (LILIBETH) Antibody, IgG 29 AU/mL or Less ............. Negative 30 - 40 AU/mL ................ Equivocal 41 AU/mL or Greater .......... Positive Callahan antibody is highly specific (greater than 90 percent) for systemic lupus erythematosus (SLE) but only occurs in 30-35 percent of SLE cases. The presence of antibodies to Callahan has variable associations with SLE clinical manifestations. Performed By: [facility] [address] [place] [address] Lmsw: Angel Luis Fuentes MD, PhD CLIA Number: [id number] Moraima Rimma Richard SUPERVISOR ELEMENTARY EDUCATION LAB REF LAB BLOOD AND FLU ID ORD Final Result [facility]) [address] [place], [place] [id number] * ENAII (02/17/2025 1:56 PM EDT) SSA-52 (RO52) (LILIBETH) Antibody, IgG 29 0 - 40 AU/mL 02/19/2025 1:28 PM EDT [facility] ([facility]) SSA-60 (RO60) (LILIBETH) Antibody, IgG 0 0 - 40 AU/mL 02/19/2025 1:28 PM EDT [facility] ([facility]) SSB (LA) (LILIBETH) Antibody, IgG 1 0 - 40 AU/mL 02/19/2025 1:28 PM EDT [facility] ([facility]) Blood Venous blood specimen / Unknown Venipuncture / Unknown 02/17/2025 1:56 PM EDT 02/17/2025 1:56 PM EDT Narrative [facility] ([facility]) - 02/19/2025 1:28 PM EDT INTERPRETIVE INFORMATION: SSA-52 (Ro52) (LILIBETH) Antibody, IgG 29 AU/mL or Less ............. Negative 30 - 40 AU/mL ................ Equivocal 41 AU/mL or Greater .......... Positive SSA-52 (Ro52) and/or SSA-60 (Ro60) antibodies are associated with a diagnosis of Sjogren syndrome, systemic lupus erythematosus (SLE), and systemic sclerosis. SSA-52 antibody overlaps significantly with the major SSc-related antibodies. SSA-52 (Ro52) antibody occurs frequently in patients with inflammatory myopathies, often in the presence of interstitial lung disease. REFERENCE INTERVAL: SSA-60 (Ro60) (LILIBETH) Antibody, IgG 29 AU/mL or Less ............. Negative 30 - 40 AU/mL ................ Equivocal 41 AU/mL or Greater .......... Positive INTERPRETIVE INFORMATION: SSB (La) (LILIBETH) Ab, IgG 29 AU/mL or Less ............. Negative 30 - 40 AU/mL ................ Equivocal 41 AU/mL or Greater .......... Positive SSB (La) antibody is seen in 50-60% of Sjogren syndrome cases and is specific if it is the only LILIBETH antibody present. 15-25% of patients with systemic lupus erythematosus (SLE) and 5-10% of patients with progressive systemic sclerosis (PSS) also have this antibody. Performed By: [facility] [address] [place] [address] Lmsw: Angel Luis Fuentes MD, PhD CLIA Number: [id number] Moraima Richard APRN LAB BLOOD ORDERABLES Maribel gomez Result [facility]) [address] [place] [address] * ENAI (02/17/2025 1:56 PM EDT) Callahan/CERTIFIED INDUSTRIAL HYGIENIST (LILIBETH) Ab, IgG 2 0 - 19 Units 02/21/2025 8:59 AM EDT [facility]) Blood Venous blood specimen / Unknown Venipuncture / Unknown 02/17/2025 1:56 PM EDT 02/17/2025 1:56 PM EDT Narrative [facility]) - 02/21/2025 8:59 AM EDT INTERPRETIVE INFORMATION: Callahan/CERTIFIED INDUSTRIAL HYGIENIST (LILIBETH) Antibody, IgG 19 Units or Less ............. Negative 20 to 39 Units ............... Weak Positive 40 to 80 Units ............... Moderate Positive 81 Units or greater .......... Strong Positive Callahan/CERTIFIED INDUSTRIAL HYGIENIST antibodies are frequently seen in patients with mixed connective tissue disease (MCTD) and are also associated with other systemic autoimmune rheumatic diseases (SARDs) such as systemic lupus erythematosus (SLE), systemic sclerosis, and myositis. Antibodies targeting the Callahan/CERTIFIED INDUSTRIAL HYGIENIST antigenic complex also recognize Callahan antigens, therefore, the Callahan antibody response must be considered when interpreting these results. Performed By: [facility] [address] [place] [address] Lmsw: Angel Luis Fuentes MD, PhD CLIA Number: [id number] Moraima Richard APRN LAB BLOOD ORDERABLES Maribel gomez Result [facility]) [address] [place], [place] [id number] * (ABNORMAL) Double-Stranded DNA (dsDNA) Antibody, IgG by IFA (02/17/2025 1:56 PM EDT) Double-Strande d DNA (dsDNA) Ab IgG IFA 1:40(H) <1:10 02/20/2025 7:54 AM EDT [facility]) Blood Venous blood specimen / Unknown Venipuncture / Unknown 02/17/2025 1:56 PM EDT 02/17/2025 1:56 PM EDT Narrative [facility]) - 02/20/2025 7:54 AM EDT INTERPRETIVE INFORMATION: Double-Stranded DNA (dsDNA) Antibody, IgG by IFA (using Crithidia luciliae) Positivity for anti-double stranded DNA (anti-dsDNA) IgG antibody is a diagnostic criterion of systemic lupus erythematosus (SLE). The presence of the anti-dsDNA IgG antibody is identified by IFA titer (Crithidia luciliae indirect fluorescent test [MERRITT]). MERRITT is highly specific for SLE with a sensitivity of 50-60 percent. Some patients with early or inactive SLE may be positive for anti-dsDNA IgG by ARTUR but negative by MERRITT. If the MERRITT result is negative but the patient has a positive ARTUR and clinical suspicion remains, consider antinuclear antibody (NELSY) testing by IFA. Additional information and recommendations for testing may be found at [email or web address]. Performed By: [facility] [address] [place] [address] Lmsw: Angel Luis Fuentes MD, PhD CLIA Number: [id number] Moraima L Jose Manuel SUPERVISOR ELEMENTARY EDUCATION LAB BLOOD ORDERABLES Maribel l Result [facility] [address] [place] [address] * C4 Complement (02/17/2025 1:56 PM EDT) C4 Complement 23 13 - 36 mg/dL 02/17/2025 3:30 PM EDT [facility] Blood Venous blood specimen / Unknown Venipuncture / Unknown 02/17/2025 1:56 PM EDT 02/17/2025 1:56 PM EDT Moraima L Jose Manuel SUPERVISOR ELEMENTARY EDUCATION LAB BLOOD ORDERABLES Maribel l Result [facility] [address] [place] [address] * C3 Complement (02/17/2025 1:56 PM EDT) C3 Complement 149 84 - 166 mg/dL 02/17/2025 3:30 PM EDT [facility] Blood Venous blood specimen / Unknown Venipuncture / Unknown 02/17/2025 1:56 PM EDT 02/17/2025 1:56 PM EDT us Moraima Richard APRN LAB BLOOD ORDERABLES Maribel gomez Result [facility] [address] [place] [address] * (ABNORMAL) Antinuclear Antibody (NELSY), HEp-2, IgG (02/17/2025 1:56 PM EDT) NELSY INTERPRETIVE COMMENT See Note 02/19/2025 2:35 PM EDT [facility] ([email or web address]) Anti Nuc Ab Screen Detected( H) <1:80 02/19/2025 2:35 PM EDT [facility] ([email or web address]) Blood Venous blood specimen / Unknown Venipuncture / Unknown 02/17/2025 1:56 PM EDT 02/17/2025 1:56 PM EDT Narrative [facility] ([email or web address]) - 02/19/2025 2:35 PM EDT Centromere Pattern Clinical associations: SSc, PBC Main autoantibodies: Anti-centromere A/B(c) List of Abbreviations Antimitochondrial antibodies (AMA), Antisynthetase syndrome (ARS), chronic active hepatitis (CAH), inflammatory myopathies (IM) [dermatomyositis (DM), polymyositis (PM), necrotizing autoimmune myopathy (NAM)], interstitial lung disease (ILD), juvenile idiopathic arthritis (MINI), mixed connective tissue disease (MCTD), primary biliary cholangitis (PBC), rheumatoid arthritis (RA), systemic autoimmune rheumatic diseases (SARD), Sjogren syndrome (SjS), systemic lupus erythematosus (SLE), systemic sclerosis (SSc), undifferentiated connective tissue disease (UCTD). INTERPRETIVE INFORMATION: NELSY Interpretive Comment Presence of antinuclear antibodies (NELSY) is a hallmark feature of systemic autoimmune rheumatic diseases (SARD). However, NELSY lacks diagnostic specificity and is associated with a variety of diseases (cancers, autoimmune, infectious, and inflammatory conditions) and may also occur in healthy individuals in varying prevalence. The lack of diagnostic specificity requires confirmation of positive NELSY by more specific serologic tests. NELSY (nuclear reactivity) positive patterns reported include centromere, homogeneous, nuclear dots, nucleolar, or speckled. NELSY (cytoplasmic reactivity) positive patterns reported include reticular/AMA, discrete/GW body-like, polar/golgi-like, cytoplasmic speckled or rods and rings. All positive patterns are reported to endpoint titers (1:2560). Reported patterns may help guide differential diagnosis, although they may not be specific for individual antibodies or diseases. Mitotic staining patterns not reported. Negative results do not necessarily rule out SARD. Performed By: [facility] [address] [place] [id number] Lmsw: Angel Luis Fuentes MD, PhD CLIA Number: [id number] Moraima Rimma Jose Manuel APRN LAB BLOOD ORDERABLES Maribel l Result Performing Organization Address [facility] Co de Phone Number [facility] [employer]) [address] [place] [address] * Cryoglobulin, Serum (SO) (02/17/2025 1:56 PM EDT) Pathologist [facility] Cryoglobulin, S SEE COMMENTS Negative %ppt 02/19/2025 2:00 PM EDT [facility] [employer]) Comment: Negative. This test is negative at 24 hours. All samples are held and reviewed again at 7 days. If delayed precipitation occurs after 7 days, Immunofixation will be performed and an additional report will follow. Test Performed by: [place] [address] Store Director: Jani Nascimento Ph.D.; CLIA# [id number] Blood Venous blood specimen / Unknown Venipuncture / Unknown 02/17/2025 1:56 PM EDT 02/17/2025 1:56 PM EDT Moraiam L Jose Manuel APRN LAB REF LAB BLOOD AND FLU ID ORD Final Result Performing Organization Address [facility]/ZIP Co de Phone Number [facility]) * (ABNORMAL) RNA Polymerase III Antibody, IgG (02/17/2025 1:56 PM EDT) [facility] RNA Polymerase III Antibody, IgG 73(H) 0 - 19 Units 02/19/2025 7:22 PM EDT [facility]) Blood Venous blood specimen / Unknown Venipuncture / Unknown 02/17/2025 1:56 PM EDT 02/17/2025 1:56 PM EDT Narrative [facility]) - 02/19/2025 7:22 PM EDT INTERPRETIVE INFORMATION: RNA Polymerase III Antibody, IgG 19 Units or less ......Negative 20 - 39 Units .........Weak Positive 40 - 80 Units .........Moderate Positive 81 Units or greater ...Strong Positive The presence of RNA polymerase III IgG antibody, when considered in conjunction with other laboratory and clinical findings, is an aid in the diagnosis of systemic sclerosis (SSc) with increased incidence of skin involvement and renal crisis with the diffuse cutaneous form of SSc. RNA polymerase III IgG antibody occur in about 11-23 percent of SSc patients, and typically in the absence of anti-centromere and anti-Scl-70 antibodies. A negative result indicates no detectable IgG antibodies to the dominant antigen of RNA polymerase III and does not rule out the possibility of SSc. False-positive results may also occur due to non-specific binding of immune complexes. Strong clinical correlation is recommended. If clinical suspicion remains, consider additional testing for other antibodies associated with SSc, including centromere, Scl-70, U3-CERTIFIED INDUSTRIAL HYGIENIST, PM/Scl, or Th/To. Performed By: [facility] [address] [place] [address] Lmsw: Angel Luis Fuentes MD, PhD CLIA Number: [id number] Moraima Richard APRN LAB BLOOD ORDERABLES Maribel gomez Result [facility] [employer]) [address] [phone] * PM/Scl-100 Antibody, IgG by Immunoblot (SO) (02/17/2025 1:56 PM EDT) [facility] PM/Scl 100 Antibody, IgG Negative Negative 02/19/2025 8:42 PM EDT [facility] ([facility]) Blood Venous blood specimen / Unknown Venipuncture / Unknown 02/17/2025 1:56 PM EDT 02/17/2025 1:56 PM EDT Narrative [facility] - 02/19/2025 8:42 PM EDT INTERPRETIVE INFORMATION: PM/Scl-100 Antibody, IgG by Immunoblot The presence of PM/Scl-100 IgG antibody along with a positive NELSY IFA nucleolar pattern is associated with connective tissue diseases such as polymyositis (PM), dermatomyositis (DM), systemic sclerosis (SSc), and polymyositis/systemic sclerosis overlap syndrome. The clinical relevance of PM/Scl-100 IgG antibody with a negative NELSY IFA nucleolar pattern is unknown. PM/Scl-100 is the main target epitope of the PM/Scl complex, although antibodies to other targets not detected by this assay may occur. This test was developed and its performance characteristics determined by [employer]. It has not been cleared or approved by the [place] Food and Drug Administration. This test was performed in a CLIA certified laboratory and is intended for clinical purposes. Performed By: [facility] [address] [place] [address] Lmsw: Angel Luis Fuentes MD, PhD CLIA Number: [id number] Moraima Richard APRN LAB BLOOD ORDERABLES Maribel gomez Result [facility]) [address] [place] [address] * Anti-scleroderma antibody (02/17/2025 1:56 PM EDT) SCLERODERMA (SCL-70) (LILIBETH) ANTIBODY, IGG 2 0 - 40 AU/mL 02/19/2025 1:28 PM EDT [facility] Blood Venous blood specimen / Unknown Venipuncture / Unknown 02/17/2025 1:56 PM EDT 02/17/2025 1:56 PM EDT Narrative [facility] - 02/19/2025 1:28 PM EDT INTERPRETIVE INFORMATION: Scleroderma (Scl-70) (LILIBETH) Ab, IgG 29 AU/mL or Less ............. Negative 30 - 40 AU/mL ................ Equivocal 41 AU/mL or Greater .......... Positive The presence of Scl-70 antibodies (also referred to as topoisomerase I, dedra-I or JEREMY) is considered diagnostic for systemic sclerosis (SSc). Scl-70 antibodies alone are detected in about 20 percent of SSc patients and are associated with the diffuse form of the disease, which may include specific organ involvement and poor prognosis. Scl-70 antibodies have also been reported in a varying percentage of patients with systemic lupus erythematosus (SLE). Scl-70 (dedra-1) is a DNA binding protein and anti-DNA/DNA complexes in the sera of SLE patients may bind to dedra-I, leading to a false-positive result. The presence of Scl-70 antibody in sera may also be due to contamination of recombinant Scl-70 with DNA derived from cellular material used in immunoassays. Strong clinical correlation is recommended if both Scl-70 and dsDNA antibodies are detected. Negative results do not necessarily rule out the presence of SSc. If clinical suspicion remains, consider further testing for centromere, RNA polymerase III and U3-CERTIFIED INDUSTRIAL HYGIENIST, PM/Scl, or Th/To antibodies. Performed By: [facility] [address] [place] [address] Lmsw: Angel Luis Fuentes MD, PhD CLIA Number: [id number] Moraima Richard APRN LAB BLOOD ORDERABLES Maribel gomez Result [address] [facility]) [address] [place] [address] * (ABNORMAL) Centromere Antibody, IgG (02/17/2025 1:56 PM EDT) Centromere Ab, IgG 139(H) 0 - 40 AU/mL 02/19/2025 1:27 PM EDT [facility] ([email or web address]) Blood Venous blood specimen / Unknown Venipuncture / Unknown 02/17/2025 1:56 PM EDT 02/17/2025 1:56 PM EDT Narrative [employer] [employer] [facility]) - 02/19/2025 1:27 PM EDT INTERPRETIVE INFORMATION: Centromere Ab, IgG 29 AU/mL or Less ............. Negative 30 - 40 AU/mL ................ Equivocal 41 AU/mL or Greater .......... Positive When detected by this multiplex bead assay, the presence of centromere antibodies is mainly associated with CREST syndrome, a variant of systemic sclerosis (SSc). These antibodies target the centromere B, a dominant antigen of the centromeric complex associated with the centromere pattern observed in antinuclear antibody (NELSY) testing by IFA. Centromere antibodies may also be seen in a varying percentage of patients with other autoimmune diseases, including diffuse cutaneous SSc, Raynaud syndrome, interstitial pulmonary fibrosis, autoimmune liver disease, systemic lupus erythematosus (SLE) and rheumatoid arthritis (RA). A negative result indicates no detectable IgG antibodies to centromere B. If the result is negative but clinical suspicion for SSc is strong, consider testing for NELSY by IFA along with other antibodies associated with SSc, including Scl-70, U3-CERTIFIED INDUSTRIAL HYGIENIST, PM/Scl, or Th/To. Performed By: [facility] [address] [place] [address] Lmsw: Angel Luis Fuentes MD, PhD CLIA Number: [id number] Moraima Richard APRN LAB BLOOD ORDERABLES Maribel gomez Result [facility] ([facility]) [address] [place] [address] documented in this encounter Visit Diagnoses Diagnosis Positive NELSY (antinuclear antibody)- Primary Other and unspecified nonspecific immunological findings Polyarthralgia Pain in joint, multiple sites Positive NELSY (antinuclear antibody) Other and unspecified nonspecific immunological findings Polyarthralgia Pain in joint, multiple sites documented in this encounter Additional Health Concerns Assessment Noted Time PHQ-9 Depression Total Score: 0 02/18/20 25 12:55 PM EDT A fall risk assessment has been complete d for the patient 02/17/2025 12:55 PM EDT A Body Mass Index follow-up plan has been documented for the patient 02/17/2025 1:32 PM EDT documented as of this encounter Care Teams [employer] Aircrew[employer] Relationship Specialty Start Date End Date Lucita Bonilla APRN [address] [place] [address] PCP - General 03/29/23 documented as of this encounter
--- OUTSIDE RECORDS SUMMARY | 2025-02-17 13:59 | XMS_ITS | Encounter Summary ---
Author Organization Healthcare Address [address] [place] [address] Care Team Providers Care Office Machine Repair Shop Supervisor Name Role Phone Lucita Bonilla APRN Primary Care Provider [phone] Encounter Details Date Type Department Care Team (Latest Contact Info) Description 02/17/2025 1:59 PM EDT - 02/17/2025 11:59 PM EDT Hospital Encounter [facility] [address], [address] [place] [address] Positive NELSY (antinuclear antibody); Polyarthralgia Discharge Disposition: Home or Self Care Social History Tobacco Use Types Packs/Day Years Used Date Smoking Tobacco: Every Day Cigarettes 1 50 Passive Smoke Exposure: Current Smokeless Tobacco: Never Alcohol Use Standard Drinks/Week Comments Never 0 [...] on file documented as of this encounter Functional Status * Over the [...] Questionnaire -2 Score 0 02/17/2025 12:55 PM EDKeren Vidales * Question Answer Date of Assessment Author Trouble falling or staying a sleep, or sleeping too much Not at all 02/17/2025 12:55 PM Keren Chilel Feeling tired or having syed le energy Not at all 02/17/2025 12:55 PM Keren Chilel Poor appetite or overeating Not at all 02/17/2025 12 :55 PM EDKeren Vidales Feeling bad about yourself - or that you are a failure or have let yourself or your family down Not at all 02/17/2025 12:55 PM Keren Hughes Trouble concentrating on thi ngs, such as reading the newspaper or watching television Not at all 02/17/2025 12:55 PM Keren Chilel Moving or speaking so slowly that other people could have noticed? Or the opposite - being so fidgety or restless that you have been moving around a lot more than usual. Not at all 02/17/2025 12:55 PM Keren Chilel Thoughts that you would be b tay off or hurting yourself in some way Not at all 02/17/2025 12:55 PM Keren Chilel Patient Health Questionnaire -9 Score 0 02/17/2025 12:55 PM Keren Chilel * If you checked off any problems on this questionnaire so far, Question Answer Date of Assessment Author How difficult have these problems made it for you to do your work, take care of things at home, or get along with other people? Not difficult at all 02/17/2025 12:55 PM Keren Chilel documented as of this encounter Medications at Time of Discharge acetaminophen (Tylenol) 325 MG tablet Take 2 tablets (650 mg) by mouth every 6 (six) hours if needed for pain, headaches or fever. 120 tablet 01/15/2024 acetaminophen (Tylenol) 325 MG tablet Take 2 tablets (650 mg) by mouth every 4 (four) hours if needed for pain. 60 tablet 06/13/2024 albuterol (Ventolin HFA) 108 (90 Base) MCG/ACT inhaler Inhale 2 puffs every 4 (four) hours if needed. 04/19/2023 ASPIRIN 81 MG chewable tablet Chew 1 tablet (81 mg) 1 (one) time each day. atorvastatin (Lipitor) 40 MG tablet Take 1 tablet (40 mg) by mouth 1 (one) time each day. budesonide-formotero l (Symbicort) 160-4.5 MCG/ACT inhaler Inhale 1 puff if needed. 03/21/2023 carvedilol (Coreg) 6.25 MG tablet Take 2 tablets (12.5 mg) by mouth twice a day. 10/18/2023 lidocaine (Xylocaine) 5 % ointmentIndications: Aftercare following surgery of the genitourinary system Apply to perineum three times per day as needed for pain 30 g 2 01/15/2024 lidocaine (Xylocaine) 5 % ointment Apply to perineum up to twice daily as needed. 28 g 06/13/2024 lisinopril 40 MG tablet Take 1 tablet (40 mg) by mouth 1 (one) time each day. 10/18/2023 loratadine (Claritin) 10 MG tablet Take 1 tablet (10 mg) by mouth 1 (one) time each day. 05/04/2024 metoclopramide (Reglan) 5 MG tablet Take 1 tablet (5 mg) by mouth 4 (four) times a day if needed (reflux, nausea). 28 tablet 12/01/2023 metoprolol tartrate (Lopressor) 50 MG tablet Take 1 tablet (50 mg) by mouth 2 (two) times a day. omeprazole (PriLOSEC) [address] capsule Take 1 capsule (40 mg) by mouth 1 (one) time each day. Do not crush or chew. pantoprazole (Protonix) 40 MG EC tablet Take 1 tablet (40 mg) by mouth 1 (one) time each day before breakfast. Do not crush, chew, or split. 30 tablet 3 12/01/2023 phenazopyridine (Pyridium) 100 MG tabletIndications:Dy suria Take 1 tablet (100 mg) by mouth 3 (three) times a day if needed for pain. 10 tablet 01/15/2024 RABEprazole (Aciphex) 20 MG EC tablet 12/28/2023 tiotropium (Spiriva) [address] 1 capsule (18 mcg) into inhaler and inhale 1 (one) time each day. ibuprofen 600 MG tablet Take 1 tablet (600 mg) by mouth every 6 (six) hours if needed for mild pain or moderate pain. 80 tablet 01/15/2024 ibuprofen 600 MG tablet Take 1 tablet (600 mg) by mouth every 6 (six) hours if needed for mild pain. 60 tablet 06/13/2024 ondansetron (Zofran) 4 MG tablet Take 1 tablet (4 mg) by mouth every 8 (eight) hours if needed for nausea or vomiting. 10 tablet 5 06/13/2024 ondansetron ODT (Zofran-ODT) 4 MG disintegrating tablet Take 1 tablet (4 mg) by mouth every 6 (six) hours if needed for nausea or vomiting. 10 tablet 1 12/01/2023 oxyCODONE (Roxicodone) 5 MG immediate release tablet Take 1 tablet (5 mg) by mouth every 4 (four) hours if needed for severe pain. 3 tablet 06/13/2024 senna (Senokot) 8.6 MG tablet Take 2 tablets (17.2 mg) by mouth at night if needed for constipation. 60 tablet 01/15/2024 simethicone (Mylicon) 80 MG chewable tablet Chew 1 tablet (80 mg) every 6 (six) hours if needed (gas pain). 60 tablet 01/15/2024 traZODone (Desyrel) 50 MG tablet Take 1 tablet (50 mg) by mouth every night. 11/21/2023 polyethylene glycol (Miralax) 17 g packet Take 17 g by mouth 1 (one) time each day if needed (constipation) . 30 packet 01/15/2024 5 documented as of this encounter Plan of Treatment Upcoming Encounters Date Type Department Care Team (Late st Contact Info) Description 07/16/2025 8:40 AM EST Office Visit [facility] [address], [address] [place] [address] Skui Curtis MD [address] [place] [address] 08/18/2025 1:20 PM EST Office Visit [facility] [address], [address] [place] [address] Moraima Richard, DETONATOR MAKER [address] [place] [address] documented as of this encounter Procedures Procedure Name Priority Date/Time Associated Diagnosis Comments XR HIPS BILATERAL 2 VIEWS Routine 02/17/2025 2:08 PM EDT Positive NELSY (antinuclear antibody) Polyarthralgia XR HAND WRIST BILATERAL 2 VIEWS Routine 02/17/2025 2:08 PM EDT Positive NELSY (antinuclear antibody) Polyarthralgia documented in this encounter Results * XR Hips Bilateral [...] Cristina MD on 02/17/2025 2:33 PM Moraima Rimma Richard APRN IMG XR PROCEDURES Final R [...] MD on 02/17/2025 2:33 PM Moraima Richard DETONATOR MAKER IMG XR PROCEDURES Final R esult documented in this encounter Visit Diagnoses Diagnosis Positive NELSY (antinuclear antibody) Other and unspecified [...] documented as of this encounter Care Teams Office Machine Repair Shop Supervisor Relationship Specialty Start Date End Date Lucita Bonilla APRN [address] [place] [address] PCP - General 03/29/23 documented as of this encounter
--- OUTSIDE RECORDS SUMMARY | 2025-04-01 08:00 | XMS_ITS | Encounter Summary ---
Author Organization Healthcare Address [address] [place] [address] Care Team Providers Care Hydroelectric Powerplant Supervisor Name Role Phone Lucita Bonilla APRN Primary Care Provider Reason for Referral * Imaging (Routine) - Pending Review Specialty Diagnoses / Procedures Referred By Frances huang Referred To Contact Radiology Diagnoses Incontinence of feces with fecal urgency Procedures MR Defecography Chirag Mcgraw MD [address] [facility] [address] [place] [address] Phone: tel: fax: Referral ID Status Reason Start Date Expiration Date V isits Requested Visits Authorized [id number] Pending Review 04/01/2025 10/01/2026 1 1 * Consultation (Routine) - Authorized Specialty Diagnoses / Procedures Referred By Frances huang Referred To Contact Gastroenterology Diagnoses Incontinence of feces with fecal urgency Chirag Mcgraw MD [address] [facility] [address] [place] [address] Phone: tel: fax: Referral ID Status Reason Start Date Expiration Date Visits Requested Visits Authorized [id number] Authorized Specialty Services Required 04/01/2025 10/01/2026 1 1 Scheduling Instructions 65 yo with defecatory dysfunction needs baseline screening colonoscopy. Please evaluate. Many thanks! Reason for Visit * Reason Comments Painful defecation Encounter Details Date Type Department Care Team ([facility] Contact Info) Description 04/01/2025 8:00 AM EDT Office Visit Medical Office Building Obstetrics and Gynecology [address] [facility], [address] [place] [address] Chirag Mcgraw MD [address] [facility] [address] [place] [address] Painful defecation (Primary Dx); Incontinence of feces with fecal urgency Social History Tobacco Use Types Packs/Day Years Used Date Smoking Tobacco: Every Day Cigarettes 1 50 Passive Smoke Exposure: Current Smokeless Tobacco: Never Alcohol Use Standard Drinks/Week Comments Never 0 (1 standard drink = 0.6 oz pur e alcohol) PHQ-2 Answer Date Recorded Patient Health Questionnaire-2 Score 0 04/01/2025 PHQ-9 Answer Date Recorded Patient Health Questionnaire-9 Score 0 04/01/2025 Comments No Sex and Gender Information Value Date Recorded Sex Assigned at Female 12/05/2023 5:10 AM EDT Legal Sex Female 7:50 PM EDT Gender Identity Female 12/05/2023 5:10 AM EDT Sexual Orientation Not on file documented as of this encounter Last Filed Vital Signs Vital Sign Reading Time Taken Comments Blood Pressure 138/82 04/01/2025 8:04 AM EDT Pulse 73 04/01/2025 8:04 AM EDT Temperature 36.4 C (97.6 F) 04/01/2025 8:04 AM EDT Respiratory Rate 18 04/01/2025 8:04 AM EDT Oxygen Saturation - - Inhaled Oxygen Concentration - - Weight 59 kg (130 lb) 04/01/2025 8:04 AM EDT Height 154.9 cm (5' 1 ) 04/01/2025 8:04 AM EDT Body Mass Index 24.56 04/01/2025 8:04 AM EDT documented in this encounter Functional Status * Over the past 2 weeks, how often have you been bothered by any of the following problems? Question Answer Date of Assessment Author Little interest or pleasure in doing things Not at all 04/01/2025 8:05 AM EDT Daphnie Ignacio Feeling down, depressed, or hopeless Not at all 04/01/2025 8:05 AM EDT Daphnie Ignacio Patient Health Questionnaire -2 Score 0 04/01/2025 8:05 AM EDDaphnie Dang * Question Answer Date of Assessment Author Trouble falling or staying asleep, or sleeping too much Not at all 04/01/2025 8:05 AM EDT Daphnie Ignacio Feeling tired or having syed le energy Not at all 04/01/2025 8:05 AM EDT Daphnie Ignacio Poor appetite or overeating Not at all 04/01/2025 8: 05 AM EDT Daphnie Ignacio Feeling bad about yourself - or that you are a failure or have let yourself or your family down Not at all 04/01/2025 8:05 AM EDT Daphnie Pollock Trouble concentrating on thi ngs, such as reading the newspaper or watching television Not at all 04/01/2025 8:05 AM EDT Daphnie Ignacio Moving or speaking so slowly that other people could have noticed? Or the opposite - being so fidgety or restless that you have been moving around a lot more than usual. Not at all 04/01/2025 8:05 AM EDT Daphnie Ignacio Thoughts that you would be better off or hurting yourself in some way Not at all 04/01/2025 8:05 AM JAMIET Daphnie Ignacio Patient Health Questionnaire -9 Score 0 04/01/2025 8:05 AM JAMIET Daphnie Ignacio * If you checked off any problems on this questionnaire so far, Question Answer Date of Assessment Author How difficult have these problems made it for you to do your work, take care of things at home, or get along with other people? Not difficult at all 04/01/2025 8:05 AM EDT Daphnie Ignacio documented as of this encounter Miscellaneous Notes * Progress Notes - Chirag Mcgraw MD - 04/01/2025 8:00 AM EDT Urogynecology Progress Note Subjective 65-year-old well known to the urogynecology service status post sacrospinous ligament suspension with anterior-posterior repair with placement of synthetic mid urethral sling November 25 status post midurethral sling release with cystoscopy June 27 presents for follow-up with complaint of painful d efecation and fecal urgency. Patient gives approximately 6 month history of having intermittent episodes of fecal urgency that has since progressed to daily. She reports intermittent episodes of fecal standing over the past few months. She feels like things are getting stuck in there. Patient hasnot had a baseline colonoscopy. She denies unexplained weight loss and abdominal pain. She denies bright red blood per rectum but does report intermittent episodes of having stained tissue when she wipes. She denies having to manually reduce the bulge to initiate bowel movements. She denies digitalevacuation. Review of Systems Constitutional: Negative. HENT: Negative. Respiratory: Negative. Cardiovascular: Negative. Gastrointestinal: Positive for abdominal pain, constipation and rectal pain. Negative for abdominaldistention, anal bleeding, blood in stool, diarrhea, nausea and vomiting. Genitourinary: Negative for difficulty urinating, dysuria, enuresis, flank pain, frequency, hematuria, pelvic pain, urgency, vaginal bleeding and vaginal discharge. Musculoskeletal: Negative. Neurological: Negative. Psychiatric/Behavioral: Negative. Objective Visit Vitals BP 138/82 Pulse 73 Temp 36.4 ??C (97.6 ??F) (Tympanic) Resp 18 Physical Exam Constitutional: Appearance: Normal appearance. She is normal weight. She is not ill-appearing or toxic-appearing. Genitourinary: Bladder, rectum and urethral meatus normal. Right Labia: No rash or tenderness. Left Labia: No tenderness or rash. No labial fusion noted. No vaginal discharge, tenderness, bleeding or granulation tissue. Anterior and apical vaginal prolapse present. Moderate vaginal atrophy present. Right Adnexa: absent. Left Adnexa: absent. Cervix is absent. Uterus is absent. Urethral hypermobility present. No urethral prolapse, tenderness, mass, discharge or stress urinary incontinence with cough stress test present. Pelvic floor neuro is intact. POP-Q measurements were: Aa: -2, Ba: 0, C: -3 gH: 3, pB: 3, TVL: 9 Ap: -2, Bp: -1, D: x HENT: Head: Normocephalic and atraumatic. Abdominal: General: There is no distension. Palpations: Abdomen is soft. There is no mass. Tenderness: There is no abdominal tenderness. There is no right CVA tenderness, left CVA tenderness, guarding or rebound. Hernia: No hernia is present. Neurological: Mental Status: She is alert. Psychiatric: Mood and Affect: Mood normal. Behavior: Behavior normal. Thought Content: Thought content normal. Judgment: Judgment normal. Exam conducted with a roller coaster designer present. Labs: Imaging: Assessment/Plan Assessment & Plan Painful defecation Orders: polyethylene glycol (Miralax) 17 g packet; Take 17 g by mouth daily as needed (constipation). docusate sodium (Colace) 100 MG capsule; Take 1 capsule by mouth 2 times a day. Incontinence of feces with fecal urgency Orders: Ambulatory referral to Gastroenterology; Future MR Defecography; Future The clinical examination findings were reviewed with Mrs. Vazquez. She verbalized understanding that she does have recurrent vaginal prolapse but no obvious rectal prolapse on today's assessment. Givenher symptoms being isolated to the posterior compartment, I have strongly encouraged her to see a [place] stroenterologist for screening colonoscopy and we have agreed to move forward with placing a request for an MRI defecography to rule out rectal prolapse intussusception. She is encouraged to take Colace and MiraLax to keep her stool soft to see if this impacts the painful defecation in a positive manner. 1. Gastroenterology consultation for screening colonoscopy 2. MRI defecography. Will call with results and initiate referrals as appropriate 3. Return to Urogynecology as needed Please note: This dictation was prepared using [employer] Direct voice recognition software. As a result errors may occur. When identified, these semiconductor wafers tester errors have been corrected. While every attempt is made to correct errors during dictation, errors may still exist. documented in this encounter Plan of Treatment Upcoming Encounters Date Type Department Care Team (Late st Contact Info) Description 07/16/2025 8:40 AM EST Office Visit [facility] Medicine Specialties [address] [place] [address] Suki Curtis MD [address] [place] [address] 08/18/2025 1:20 PM EST Office Visit [facility] Medicine Specialties [address], [address] [place] [address] Moraima Richard, LARISSA [address] [place] [address] Scheduled Orders Name Type Priority Associated Diagnoses Orde r Schedule MR Defecography Imaging Routine Incontinence of feces with fecal urgency Expected: 04/01/2025 (Approximate), Expires: 10/03/2026 Scheduled Referrals Name Type Priority Associated Diagnoses Order Schedule Ambulatory referral to Gastroenterology Outpatient Referral Routine Incontinence of feces with fecal urgency Expected: 04/01/2025 (Approximate), Expires: 10/03/2026 documented as of this encounter Visit Diagnoses Diagnosis Painful defecation- Primary Incontinence of feces with fecal urgency documented in this encounter Additional Health Concerns Assessment Noted Time PHQ-9 Depression Total Score: 0 04/01/20 25 8:05 AM EDT A fall risk assessment has been complete d for the patient 02/17/2025 12:55 PM EDT A Body Mass Index follow-up plan has been documented for the patient 04/01/2025 9:06 AM EDT documented as of this encounter Care Teams Hydroelectric Powerplant Supervisor Relationship Specialty Start Date End Date Lucita Bonilla APRN [address] [place] [address] PCP - General 03/29/23 documented as of this encounter
--- OUTSIDE RECORDS SUMMARY | 2025-04-03 10:40 | XMS_ITS | Encounter Summary ---
Author Organization Healthcare Address [address] [place] [address] Care Team Providers Care Generator Operator Name Role Phone Lucita Bonilla APRN Primary Care Provider [phone] Encounter Details Date Type Department Care Team (Late Contact Info) Description 03/03/2025 Telephone [facility] Medicine Specialties [address] [place] [address] Moraima Richard FACILITIES ADMINISTRATOR [address] [place] [address] Social History Tobacco Use Types [...] encounter Miscellaneous Notes * Telephone Encounter - Shaheen December - 03/03/2025 1:10 PM EDT Called both # and left message.. need location of echo documented in this encounter Plan of Treatment Upcoming Encounters Date Type Department Care Team (Late st Contact Info) Description 07/16/2025 8:40 AM EST Office Visit [facility] Medicine Specialties [address], [address] [place] [address] Suki Curtis MD [address] [place], [place] [id number] 08/18/2025 1:20 PM EST Office Visit [facility] Medicine Specialties [address] [place] [address] Moraima Richard, FACILITIES ADMINISTRATOR [address] [place] [address] documented as of this encounter [...] documented as of this encounter Care Teams Generator Operator Relationship Specialty Start Date End Date Lucita Bonilla APRN [address] [place] [address] PCP - General 03/29/23 documented as of this encounter
--- OUTSIDE RECORDS SUMMARY | 2025-04-03 10:40 | XMS_ITS | Encounter Summary ---
Author Organization Healthcare Address [address] [place] [address] Care Team Providers Care Compliance Consultant Name Role Phone Lucita Bonilla LARISSA Primary Care Provider [phone] Encounter Details Date Type Department Care Team (Late st Contact Info) Description 02/26/2025 Telephone [facility] Medicine Specialties [address] [place] [address] Moraima Richard APRN [address] [place] [address] Social History Tobacco Use Types [...] Description 07/16/2025 8:40 AM EST Office Visit [facility] Medicine Specialties [address] [place] [address] Suki Curtis MD [address] [place], [place] [id number] 08/18/2025 1:20 PM EST Office Visit [facility] Medicine Specialties [address] [place] [address] Moraima Richard APRN [address] [place] [address] documented as of this encounter [...] documented as of this encounter Care Teams Compliance Consultant Relationship Specialty Start Date End Date Lucita Bonilla APRN [address] [place] [address] PCP - General 03/29/23 documented as of this encounter
--- OUTSIDE RECORDS SUMMARY | 2025-04-03 10:40 | XMS_ITS | Encounter Summary ---
Author Organization Healthcare Address [address] [place] [address] Care Team Providers Care Occupational Therapy Specialist Name Role Phone Lucita Bonilla APRN Primary Care Provider [phone] Encounter Details Date Type Department Care Team (Late st Contact Info) Description 02/18/2025 Results Follow-Up [facility] Medicine Specialties [address] [place] [address] Moraima Richard APRN [address] [place] [address] Social History Tobacco Use Types [...] Description 07/16/2025 8:40 AM EST Office Visit [facility] Medicine Specialties [address] [place] [address] Suki Curtis MD [address] [place] [address] 08/18/2025 1:20 PM EST Office Visit [facility] Medicine Specialties [address] [place] [address] Moraima Richard APRN [address] [place] [address] documented as of this encounter [...] documented as of this encounter Care Teams Occupational Therapy Specialist Relationship Specialty Start Date End Date Lucita Bonilla APRN [address] [place] [address] PCP - General 03/29/23 documented as of this encounter
--- OUTSIDE RECORDS SUMMARY | 2025-04-03 10:41 | XMS_ITS | Referral Summary ---
Author Organization [facility] ([place], [place], [place], [place]) Address [address] [place] [address] Care Team Providers Care Swedger Name Role Phone Unavailable Primary Care Provider [...]
--- OUTSIDE RECORDS SUMMARY | 2025-04-03 10:41 | XMS_ITS | Encounter Summary ---
Author Organization Healthcare Address [facility] [place] [id number] Care Team Providers Care Hiv/Aids Care Nurse Name Role Phone Lucita Bonilla APRN Primary Care Provider [phone] Encounter Details Date Type Department Care Team [...] way Not at all 02/17/2025 12:55 PM JAMIET Keren Nickerson Patient Health Questionnaire -9 Score 0 02/17/2025 12:55 PM JAMIET Keren Nickerson * If you checked off any problems on this questionnaire so far, Question Answer Date of Assessment Author How difficult have these problems made it for you to do your work, take care of things at home, or get along with other people? Not difficult at all 02/17/2025 12:55 PM Keren Chilel documented as of this encounter Plan of Treatment Upcoming Encounters Date Type Department Care Team (Late st Contact Info) Description 07/16/2025 8:40 AM EST Office Visit [facility] Medicine Specialties [address] [place] [address] Suki Curtis MD [address] [place], [place] [id number] 08/18/2025 1:20 PM EST Office Visit [facility] Medicine [facility] [address], [address] [place] [address] Moraima Richard, LARISSA [address] [place] [address] documented as of this encounter [...] documented as of this encounter Care Teams Hiv/Aids Care Nurse Relationship Specialty Start Date End Date Lucita Bonilla APRN [address] [place] [address] PCP - General 03/29/23 documented as of this encounter
--- OUTSIDE RECORDS SUMMARY | 2025-04-03 10:41 | XMS_ITS | Encounter Summary ---
Author Organization Healthcare Address [address] [place] [address] Care Team Providers Care Silk Washing Machine Operator Name Role Phone Lucita Bonilla APRN Primary Care Provider [phone] Encounter Details Date Type Department Care Team ([facility] Contact Info) Description 03/25/2025 Telephone Medical Office Building Obstetrics and Gynecology [address] [facility], [address] [place] [address] Chirag Mcgraw MD [address] [facility] [address] [place] [address] Social History Tobacco Use Types Packs/Day Years [...] encounter Miscellaneous Notes * Telephone Encounter - Daphnie Ignacio - 03/25/2025 8:47 AM EDT Patient contacted. Patient states she is having some discomfort/pain. Informed patient it is suggested she have a in office visit with Lucien for observation. Patient expressed understanding and agreed to the time of 8:00 am next Monday on the 01 of April. FREIDA Eller * Telephone Encounter - Janis Diego - 03/25/2025 8:10 AM EDT Clinical Concern/Question Reason for Call: Pt has to speak with you about her pain when going to the restroom Best contact number: [phone] Optimal time of day to reach caller: ANYTIME Additional comments/information from caller: None Note: Please do not reply to this message. Follow-up communication and further actions as a result of this message need to be communicated with the patient directly, if the patient is not active onMyChart. If the patient is active on MyChart, they will receive notification of the communication/outcome via [employer]. documented in this encounter Plan of Treatment Upcoming Encounters Date Type Department Care Team (Late st Contact Info) Description 07/16/2025 8:40 AM EST Office Visit [facility] Medicine Specialties [address] [place] [address] Suki Curtis MD [address] [place] [address] 08/18/2025 1:20 PM EST Office Visit [facility] Medicine Specialties [address] [place] [address] Moraima Richard, LARISSA [address] [place] [address] documented as of this encounter Visit Diagnoses [...] documented as of this encounter Care Teams Silk Washing Machine Operator Relationship Specialty Start Date End Date Lucita Bonilla APRN [address] [place] [address] PCP - General 03/29/23 documented as of this encounter
--- OUTSIDE RECORDS SUMMARY | 2025-04-03 10:41 | XMS_ITS | Encounter Summary ---
Author Organization Healthcare Address [facility] [place] [id number] Care Team Providers Care Senior User Experience Architect Name Role Phone Lucita Bonilla APRN Primary Care Provider [phone] Encounter Details Date Type Department Care Team (Latest Contact Info) Description 04/01/2025 Travel Social History Tobacco Use Types Packs/Day [...] Questionnaire -2 Score 0 04/01/2025 8:05 AM EDT Daphnie Ignacio * Question Answer Date of Assessment Author [...] Questionnaire -9 Score 0 04/01/2025 8:05 AM EDT Daphnie Ignacio * If you checked off any problems on this questionnaire so far, Question Answer Date of Assessment Author How difficult have these problems made it for you to do your work, take care of things at home, or get along with other people? Not difficult at all 04/01/2025 8:05 AM JAMIET Daphnie Ignacio documented as of this encounter Plan of Treatment Upcoming Encounters Date Type Department Care Team (Late st Contact Info) Description 07/16/2025 8:40 AM EST Office Visit [facility] Medicine Specialties [address] [place] [address] Suki Curtis MD [address] [place] [address] 08/18/2025 1:20 PM EST Office Visit [facility] Medicine [facility] [address], [address] [place] [address] Moraima Richard, FOILING MACHINE OPERATOR [address] [facility] [address] [place] [address] documented as of this encounter [...] documented as of this encounter Care Teams Senior User Experience Architect Relationship Specialty Start Date End Date Lucita Bonilla APRN [address] [place] [address] PCP - General 03/29/23 documented as of this encounter
--- OUTSIDE RECORDS SUMMARY | 2025-04-03 10:41 | XMS_ITS | Clinical Summary ---
Author Organization [facility] Address [address] [place] [address] Care Team Providers Care Printer Slotter Feeder Name Role Phone Lucita Bonilla APRN Primary Care Provider [phone] Allergies Active Allergy Reactions Criticality Noted Date Comments Ibuprofen Nausea Low 03/16/2023 Tramadol Itching Medium 11/02/2009 tramadol Medications lisinopril 40 MG tablet Take 1 tablet (40 mg) by mouth 1 (one) time each day. 10/18/19 24 Active albuterol (Ventolin HFA) 108 (90 Base) MCG/ACT inhaler Inhale 2 puffs every 4 (four) hours if needed. 04/19/20 23 Active ASPIRIN 81 MG chewable tablet Chew 1 tablet (81 mg) 1 (one) time each day. Active atorvastatin (Lipitor) 40 MG tablet Take 1 tablet (40 mg) by mouth 1 (one) time each day. Active budesonide-formote rol (Symbicort) 160-4.5 MCG/ACT inhaler Inhale 1 puff if needed. 03/21/20 23 Active carvedilol (Coreg) 6.25 MG tablet Take 2 tablets (12.5 mg) by mouth twice a day. 10/18/19 24 Active omeprazole (PriLOSEC) [address] capsule [...] for nausea or vomiting. 10 tablet 1 12/01/19 Active Additional Information Patient not taking.Reported on 04/01/2025 pantoprazole (Protonix) 40 MG EC tablet Take 1 tablet (40 mg) by mouth 1 (one) time each day before breakfast. Do not crush, chew, or split. 30 tablet 3 12/01/19 24 Active metoclopramide (Reglan) 5 MG tablet Take 1 tablet (5 mg) by mouth 4 (four) times a day if needed (reflux, nausea). 28 tablet 12/01/19 24 Active ibuprofen 600 MG tablet Take 1 tablet (600 mg) by mouth every 6 (six) hours if needed for mild pain or moderate pain. 80 tablet 01/15/20 24 Active Additional Information Patient not taking.Reported on 04/01/2025 acetaminophen (Tylenol) 325 MG tablet Take 2 tablets (650 mg) by mouth every 6 (six) hours if needed for pain, headaches or fever. 120 tablet 01/15/20 24 Active senna (Senokot) 8.6 MG tablet Take 2 tablets (17.2 mg) by mouth at night if needed for constipation. 60 tablet 01/15/20 24 Active Additional Information Patient not taking.Reported on 04/01/2025 simethicone (Mylicon) 80 MG chewable tablet Chew 1 tablet (80 mg) every 6 (six) hours if needed (gas pain). 60 tablet 01/15/20 24 Active Additional Information Patient not taking.Reported on 04/01/2025 traZODone (Desyrel) 50 MG tablet Take 1 tablet (50 mg) by mouth every night. 11/21/19 24 Active metoprolol tartrate (Lopressor) 50 MG tablet Take 1 tablet (50 mg) by mouth 2 (two) times a day. Active phenazopyridine (Pyridium) 100 MG tabletIndications: Dysuria Take 1 tablet (100 mg) by mouth 3 (three) times a day if needed for pain. 10 tablet 01/15/20 24 Active lidocaine (Xylocaine) 5 % ointmentIndication s:Aftercare following surgery of the genitourinary system Apply to perineum three times per day as needed for pain 30 g 2 01/15/20 24 Active RABEprazole (Aciphex) 20 MG EC tablet 12/28/19 24 Active loratadine (Claritin) 10 MG tablet Take 1 tablet (10 mg) by mouth 1 (one) time each day. 05/04/20 24 Active ibuprofen 600 MG tablet Take 1 tablet (600 mg) by mouth every 6 (six) hours if needed for mild pain. 60 tablet 06/13/20 24 Active Additional Information Patient not taking.Reported on 04/01/2025 acetaminophen (Tylenol) 325 MG tablet Take 2 tablets (650 mg) by mouth every 4 (four) hours if needed for pain. 60 tablet 06/13/20 Active ondansetron (Zofran) 4 MG tablet Take 1 tablet (4 mg) by mouth every 8 (eight) hours if needed for nausea or vomiting. 10 tablet 5 06/13/20 Active Additional Information Patient not taking.Reported on 04/01/2025 oxyCODONE (Roxicodone) 5 MG immediate release tablet Take 1 tablet (5 mg) by mouth every 4 (four) hours if needed for severe pain. 3 tablet 06/13/20 Active Additional Information Patient not taking.Reported on 04/01/2025 lidocaine (Xylocaine) 5 % ointment Apply to perineum up to twice daily as needed. 28 g 06/13/20 24 Active polyethylene glycol (Miralax) 17 g packetIndications: Painful defecation Take 17 g by mouth daily as needed (constipation). 30 packet 3 04/01/20 25 025 Active docusate sodium (Colace) 100 MG capsuleIndications :Painful defecation Take 1 capsule by mouth 2 times a day. 120 capsule 2 04/01/20 25 026 Active polyethylene glycol (Miralax) 17 g packet Take 17 g by mouth 1 (one) time each day if needed (constipation). 30 packet 01/15/20 24 025 Discontin ued(Reord er) Active Problems Problem Noted Date Diagnosed Date [...] Encounters Date Type Department Care Team Description 04/01/2025 8:00 AM EDT Office Visit Medical Office Building Obstetrics and Gynecology [address], [address] [place] [address] Chirag Mcgraw MD Painful defecation (Primary Dx); Incontinence of feces with fecal urgency 04/01/2025 Travel 03/25/2025 Telephone Medical Office Building Obstetrics and Gynecology [address], [address] [place] [address] Chirag Mcgraw MD 03/06/2025 Telephone [facility] Medicine Specialties [address] [place] [address] Moraima Richard, EXTERNAL GRINDER 03/03/2025 Telephone [facility] Medicine Specialties [address] [place] [address] Moraima Richard, EXTERNAL GRINDER 02/26/2025 Telephone [facility] Medicine Specialties [address] [place] [address] Moraima Richard, EXTERNAL GRINDER 02/18/2025 Results Follow-Up [facility] Medicine Specialties [address] [place] [address] Moraima Richard, EXTERNAL GRINDER 02/17/2025 1:59 PM EDT - 02/17/2025 11:59 PM EDT Hospital Encounter [facility] Radiology [address] [place] [address] Positive NELSY (antinuclear antibody); Polyarthralgia Discharge Disposition: Home or Self Care 02/17/2025 1:50 PM EDT Consult [facility] Medicine Specialties [address] [place] [address] Moraima Richard, EXTERNAL GRINDER Positive NELSY (antinuclear antibody) (Primary Dx); Polyarthralgia [...] 18 04/01/2025 8:04 AM EDT Oxygen Saturation 98% 02/17/2025 12:50 PM EDT Inhaled Oxygen Concentration - - Weight 59 kg (130 lb) 04/01/2025 8:04 AM EDT Height 154.9 cm (5' 1 ) 04/01/2025 8:04 AM EDT Body Mass Index 24.56 04/01/2025 8:04 AM EDT Plan of Treatment Upcoming Encounters Date Type Department Care Team (Late st Contact Info) Description 07/16/2025 8:40 AM EST Office Visit [facility] Medicine Specialties [address] [place] [address] Suki Curtis MD [address] [place] [address] 08/18/2025 1:20 PM EST Office Visit [facility] Medicine Specialties [address] [place] [address] Moraima Richard APRN [address] [place] [address] Health Maintenance Due Date Last [...] [facility]-Zoster Vaccines (2 of 2) 01/16/2024 11/21/2023 [id number] Vaccine (1 - season) 2024 [facility]-Influenza Vaccine (#1) 05/05/202507/08, 05/22/2019, 06/02/2017 Dental X-Ray: Full Mouth 03/30/2026 03/29/2023 [facility]-Depression Screening 04/01/2026 025, 04/01/2025 [facility]-HPV/Cotest Discontinued 08/22/1991 [facility]-Cervical Cancer Screening Discontinued [...] this topic Medical Devices Implanted Type Area Claim Analyst Device Identifier Shelf Expiration Date Model / Serial / Lot System Mesh Sling Advantage Fit Blue - [id number] Implanted:Qty: 1 on 11/30/2023 by Chirag Mcgarw MD at [facility] N/A: Vagina [id number] 07/30/2026 [id number] / / [id number] Procedures Procedure Name Priority Date/Time Associated Diagnosis [...] PM EDT Positive NELSY (antinuclear antibody) Polyarthralgia CALLAHAN/CITY ALDERMAN (LILIBETH) ANTIBODY, IGG (SO) Routine 02/17/2025 1:56 [...] on 02/17/2025 2:33 PM Moraima Richard APRN IM XR PROCEDURES Final R esult * Protein, Random, Urine with Creatinine (02/17/2025 1:57 PM EDT) Protein, Urine 27 mg/dL 02/17/2025 4:44 PM EDT [facility] Creatinine, Urine 71 mg/dL 02/17/2025 4:44 PM EDT [facility] Protein/Creatin ine Ratio 0.4 mg/mg Creat 02/17/2025 4:44 PM EDT [facility] Urine Urine specimen obtained by clean catch procedure / Unknown Non-blood Collection / Unknown 02/17/2025 1:57 PM EDT 02/17/2025 1:57 PM EDT Moraima Richard APRN LAB URINE ORDERABLES Maribel l Result [facility] [address] [place] [address] * Cryoglobulin, Serum (SO) (02/17/2025 1:56 PM EDT) [facility] Cryoglobulin, S SEE COMMENTS Negative %ppt 02/19/2025 2:00 PM EDT [facility] ([place]) Comment: Negative. This test is negative at 24 hours. All samples are held and reviewed again at 7 days. If delayed precipitation occurs after 7 days, Immunofixation will be performed and an additional report will follow. Test Performed by: [place] [address] Automation And Control Engineer: Jani Nascimento Ph.D.; CLIA# [id number] Blood Venous blood specimen / Unknown Venipuncture / Unknown 02/17/2025 1:56 PM EDT 02/17/2025 1:56 PM EDT Moraima Richard APRN LAB REF LAB BLOOD AND FLU ID ORD Final Result [facility] ([place]) * (ABNORMAL) RNA Polymerase III Antibody, IgG (02/17/2025 1:56 PM EDT) [facility] RNA Polymerase III Antibody, IgG 73(H) 0 - 19 Units 02/19/2025 7:22 PM EDT [facility] ([place]) Blood Venous blood specimen / Unknown Venipuncture / Unknown 02/17/2025 1:56 PM EDT 02/17/2025 1:56 PM EDT Narrative [facility] ROSY RamirezDUSTIN) - 02/19/2025 7:22 PM EDT INTERPRETIVE INFORMATION: [...] antibodies associated with SSc, including centromere, Scl-70, U3-CITY ALDERMAN, PM/Scl, or Th/To. Performed By: [facility] [address] [place] [address] Fire Warden: Angel Luis Fuentes MD, PhD CLIA Number: [id number] Moraima Richard [facility] LAB BLOOD ORDERABLES Maribel gomez Result [facility] [employer]) [address] [place] [address] * (ABNORMAL) Centromere Antibody, IgG (02/17/2025 1:56 PM EDT) Centromere Ab, IgG 139(H) 0 - 40 AU/mL 02/19/2025 1:27 PM EDT [facility]) Blood Venous blood specimen / Unknown Venipuncture / Unknown 02/17/2025 1:56 PM EDT 02/17/2025 1:56 PM EDT Narrative [facility] ROSY RamirezDUSTIN) - 02/19/2025 1:27 PM EDT INTERPRETIVE INFORMATION: [...] other antibodies associated with SSc, including Scl-70, U3-CITY ALDERMAN, PM/Scl, or Th/To. Performed By: [facility] [address] [place] [address] Fire Warden: Angel Luis Fuentes MD, PhD CLIA Number: [id number] Moraima Richard APRN LAB BLOOD ORDERABLES Maribel gomez Result [facility] [employer]) [address] [place], [place] [id number] * PM/Scl-100 Antibody, IgG by Immunoblot (SO) (02/17/2025 1:56 PM EDT) Pathologist [facility] PM/Scl 100 Antibody, IgG Negative Negative 02/19/2025 8:42 PM EDT [facility] [employer] ([place]) Blood Venous blood specimen / Unknown Venipuncture / Unknown 02/17/2025 1:56 PM EDT 02/17/2025 1:56 PM EDT Narrative [facility] [employer]) - 02/19/2025 8:42 PM EDT INTERPRETIVE INFORMATION: [...] developed and its performance characteristics determined by [facility]. It has not been cleared or approved by the [place] Food and Drug Administration. This test was performed in a CLIA certified laboratory and is intended for clinical purposes. Performed By: [facility] [address] [place] [address] Fire Warden: Angel Luis Fuentes MD, PhD CLIA Number: [id number] Moraima Richard APRN LAB BLOOD ORDERABLES Maribel l Result Performing Organization Address City/[facility]/ZIP Co de Phone Number [facility] ([place]) [address] [place] [address] * Total Protein, Serum (02/17/2025 1:56 PM EDT) Pathologist [facility] Total Protein 7.5 6.2 - 7.7 g/dL 02/17/2025 3:37 PM EDT [facility] Blood Venous blood specimen / Unknown Venipuncture / Unknown 02/17/2025 1:56 PM EDT 02/17/2025 1:56 PM EDT [facility] Rimma Richard EXTERNAL GRINDER LAB BLOOD ORDERABLES Maribel l Result [facility] [address] [place] [address] * (ABNORMAL) Protein Electrophoresis, Serum (02/17/2025 1:56 PM EDT) Albumin Electrophoresis, Serum 4.3 3.6 - 4.7 g/dL 02/18/2025 4:01 AM EDT [facility] Alpha 1 Globulin Electrophoresis, Serum 0.3 0.2 - 0.4 g/dL 02/18/2025 4:01 AM EDT [facility] Alpha 2 Globulin Electrophoresis, Serum 1.0(H) 0.5 - 0.9 g/dL 02/18/2025 4:01 AM EDT [facility] Beta 1 Globulin Electrophoresis, Serum 0.5 0.3 - 0.5 g/dL 02/18/2025 4:01 AM EDT [facility] Beta 2 Globulin Electrophoresis, Serum 0.4 0.2 - 0.5 g/dL 02/18/2025 4:01 AM EDT [facility] Gamma Globulin Electrophoresis, Serum 1.0 0.6 - 1.5 g/dL 02/18/2025 4:01 AM EDT [facility] Interpretation, Serum Protein Electrophoresis Pathology report to follow. 02/18/2025 4:01 AM EDT [facility] Blood Venous blood specimen / Unknown Venipuncture / Unknown 02/17/2025 1:56 PM EDT 02/17/2025 1:56 PM EDT Moraima Richard APRN LAB BLOOD ORDERABLES Maribel gomez Result [facility] [address] [place] [address] * Callahan (LILIBETH) Antibody, IgG (02/17/2025 1:56 PM EDT) Callahan (LILIBETH) Antibody, IgG 5 0 - 40 AU/mL 02/19/2025 1:27 PM EDT [facility] ([place]) Serum 02/17/2025 1:56 PM EDT 02/17/2025 1:56 PM EDT Narrative [facility] ([place]) - 02/19/2025 1:27 PM EDT INTERPRETIVE INFORMATION: [...] associations with SLE clinical manifestations. Performed By: [facility] [address] [place] [address] Fire Warden: Angel Luis Fuentes MD, PhD CLIA Number: [id number] Moraima Richard APRN LAB REF LAB BLOOD AND FLU ID ORD Final Result Performing Organization Address [facility] Co de Phone Number [facility] ([place]) [address] [place] [address] * Protein electrophoresis serum, pathologist interpretation (02/17/2025 1:56 PM EDT) Clinical Diagnosis, SPEP Positive NELSY 02/18/2025 10:51 AM EDT [facility] Interpretation , SPEP There are no significant abnormalities in the protein electrophoretic pattern save for slightly elevated alpha-2 A resident was involved in the service. I attest I examined the relevant preparations for the specimens and confirmed the diagnosis or interpretation. 02/18/2025 10:51 AM EDT [facility] Pathologist Signature, SPEP Reviewed by: Bryce Camarillo MD 02/18/2025 10:51 AM EDT [facility] LAB CP ASR DISCLAIMER Yes 02/18/2025 10:51 AM EDT [facility] Blood Venous blood specimen / Unknown Venipuncture / Unknown 02/17/2025 1:56 PM EDT 02/17/2025 1:56 PM EDT Moraima Richard APRN LAB PATHOLOGY ORDERABLES Final Result [facility] [address] [place] [address] * (ABNORMAL) NELSY Single Pattern (Reflex only) (02/17/2025 1:56 PM EDT) NELSY Pattern Centromere (A) 02/19/2025 2:36 PM EDT [facility] ([place]) NELSY Titer >1:2560(H) 02/19/2025 2:36 PM EDT [facility] ([place]) Blood Venous blood specimen / Unknown Venipuncture / Unknown 02/17/2025 1:56 PM EDT 02/17/2025 1:56 PM EDT Narrative [facility] ([place]) - 02/19/2025 2:36 PM EDT Performed By: [facility] [address] [place] [address] Fire Warden: Angel Luis Fuentes MD, PhD CLIA Number: [id number] us Moraima Richard EXTERNAL GRINDER LAB BLOOD ORDERABLES Maribel l Result [facility] ([place]) [address] [place] [address] * T3 (02/17/2025 1:56 PM EDT) Pathologist [facility] T3, Serum 130 87 - 187 ng/dL 02/17/2025 5:09 PM EDT [facility] Blood Venous blood specimen / Unknown Venipuncture / Unknown 02/17/2025 1:56 PM EDT 02/17/2025 1:56 PM EDT Moraima Richard EXTERNAL GRINDER LAB BLOOD ORDERABLES Maribel l Result [facility] [address] [place] [address] * Thyroglobulin Antibody (Inhouse) (02/17/2025 1:56 PM EDT) Pathologist [facility] Thyroglobulin Antibody <1.0 <4.0 IU/mL 02/17/2025 3:51 PM EDT [facility] Blood Venous blood specimen / Unknown Venipuncture / Unknown 02/17/2025 1:56 PM EDT 02/17/2025 1:56 PM EDT Moraima Davalosly EXTERNAL GRINDER LAB BLOOD ORDERABLES Maribel l Result [facility] [address] [place] [address] * ENAII (02/17/2025 1:56 PM EDT) Pathologist [facility] SSA-52 (RO52) (LILIBETH) Antibody, IgG 29 0 - 40 AU/mL 02/19/2025 1:28 PM EDT [facility] ([facility]) SSA-60 (RO60) (LILIBETH) Antibody, IgG 0 0 - 40 AU/mL 02/19/2025 1:28 PM EDT [facility] ([facility]) SSB (LA) (LILIBETH) Antibody, IgG 1 0 - 40 AU/mL 02/19/2025 1:28 PM EDT [facility] ([facility]) Blood Venous blood specimen / Unknown Venipuncture / Unknown 02/17/2025 1:56 PM EDT 02/17/2025 1:56 PM EDT Narrative [facility] ([facility]) - 02/19/2025 1:28 [...] (PSS) also have this antibody. Performed By: [facility] [address] [place] [address] Fire Warden: Angel Luis Fuentes MD, PhD CLIA Number: [id number] Moraima Rimma Richard [facility] LAB BLOOD ORDERABLES Maribel gomez Result [facility] ([place]) [address] [place] [address] * ENAI (02/17/2025 1:56 PM EDT) Callahan/CITY ALDERMAN (LILIBETH) Ab, IgG 2 0 - 19 Units 02/21/2025 8:59 AM EDT [facility] ([place]) Blood Venous blood specimen / Unknown Venipuncture / Unknown 02/17/2025 1:56 PM EDT 02/17/2025 1:56 PM EDT Narrative [facility] ([place]) - 02/21/2025 8:59 AM EDT INTERPRETIVE INFORMATION: Callahan/CITY ALDERMAN (LILIBETH) Antibody, IgG 19 Units or Less ............. Negative 20 to 39 Units ............... Weak Positive 40 to 80 Units ............... Moderate Positive 81 Units or greater .......... Strong Positive Callahan/CITY ALDERMAN antibodies are frequently seen in patients with mixed connective tissue disease (MCTD) and are also associated with other systemic autoimmune rheumatic diseases (SARDs) such as systemic lupus erythematosus (SLE), systemic sclerosis, and myositis. Antibodies targeting the Callahan/CITY ALDERMAN antigenic complex also recognize Callahan antigens, therefore, the Callahan antibody response must be considered when interpreting these results. Performed By: [facility] [address] [place] [address] Fire Warden: Angel Luis Fuentes MD, PhD CLIA Number: [id number] Moraima Richard EXTERNAL GRINDER LAB BLOOD ORDERABLES Maribel l Result [facility] ([place]) [address] [place] [address] * Thyroid Peroxidase Antibody (02/17/2025 1:56 PM EDT) Thyroid Peroxidase Antibody <5 <=8 IU/mL 02/17/2025 3:37 PM EDT [facility] Blood Venous blood specimen / Unknown Venipuncture / Unknown 02/17/2025 1:56 PM EDT 02/17/2025 1:56 PM EDT Moraima Richard APRN LAB BLOOD ORDERABLES Maribel l Result Performing Organization Address City/[facility]/ZIP Co de Phone Number [facility] [address] [place] [address] * Cyclic Citrul Peptide Antibody IgG (02/17/2025 1:56 PM EDT) Cyclic Citrul Peptide Antibody IgG <5.0 <=5.0 U/mL 02/17/2025 3:52 PM EDT [facility] Blood Venous blood specimen / Unknown Venipuncture / Unknown 02/17/2025 1:56 PM EDT 02/17/2025 1:56 PM EDT Moraima Richard EXTERNAL GRINDER LAB BLOOD ORDERABLES Maribel l Result [facility] [address] [place] [address] * Anti-scleroderma antibody (02/17/2025 1:56 PM EDT) SCLERODERMA (SCL-70) (LILIBETH) ANTIBODY, IGG 2 0 - 40 AU/mL 02/19/2025 1:28 PM EDT [facility] ([place]) Blood Venous blood specimen / Unknown Venipuncture / Unknown 02/17/2025 1:56 PM EDT 02/17/2025 1:56 PM EDT Narrative [facility] ([place]) - 02/19/2025 1:28 PM EDT INTERPRETIVE [...] testing for centromere, RNA polymerase III and U3-CITY ALDERMAN, PM/Scl, or Th/To antibodies. Performed By: [facility] [address] [place] [address] Fire Warden: Angel Luis Fuentes MD, PhD CLIA Number: [id number] Moraima Richard APRN LAB BLOOD ORDERABLES Maribel gomez Result [facility] ([facility]) [address] [place] [address] * (ABNORMAL) Double-Stranded DNA (dsDNA) Antibody, IgG by IFA (02/17/2025 1:56 PM EDT) Double-Strande d DNA (dsDNA) Ab IgG IFA 1:40(H) <1:10 02/20/2025 7:54 AM EDT [facility]) Blood Venous blood specimen / Unknown Venipuncture / Unknown 02/17/2025 1:56 PM EDT 02/17/2025 1:56 PM EDT Narrative [facility] ROS[facility] LAWR[facility]) - 02/20/2025 7:54 AM EDT [...] recommendations for testing may be found at [email or web address]. Performed By: [facility] [address] [place] [address] Fire Warden: Angel Luis Fuentes MD, PhD CLIA Number: [id number] Moraima Richard APRN LAB BLOOD ORDERABLES Maribel gomez Result [facility]) [address] [place] [address] * (ABNORMAL) CBC W/O Differential (02/17/2025 1:56 PM EDT) WBC Count 11.39(H) 3.70 - 10.30 10*3/uL LAB HEMATOLOGY METHOD 02/17/2025 2:56 PM EDT [facility] RBC Count 4.17 3.90 - 5.20 10*6/uL LAB HEMATOLOGY METHOD 02/17/2025 2:56 PM EDT [facility] HGB 12.4 11.2 - 15.7 g/dL LAB HEMATOLOGY METHOD 02/17/2025 2:56 PM EDT [facility] HCT 38.5 34.0 - 45.0 % LAB HEMATOLOGY METHOD 02/17/2025 2:56 PM EDT [facility] Platelet Count 335 155 - 369 10*3/uL LAB HEMATOLOGY METHOD 02/17/2025 2:56 PM EDT [facility] MCV 92 79 - 98 fL LAB HEMATOLOGY METHOD 02/17/2025 2:56 PM EDT [facility] MCH 29.7 26.0 - 32.0 pg LAB HEMATOLOGY METHOD 02/17/2025 2:56 PM EDT [facility] MCHC 32.2 30.7 - 35.5 g/dL LAB HEMATOLOGY METHOD 02/17/2025 2:56 PM EDT [facility] RDW 13.5 11.5 - 14.5 % LAB HEMATOLOGY METHOD 02/17/2025 2:56 PM EDT [facility] MPV 10.9 8.8 - 12.5 fL LAB HEMATOLOGY METHOD 02/17/2025 2:56 PM EDT [facility] nRBC 0.0 <=0.0 per 100 WBCs LAB HEMATOLOGY METHOD 02/17/2025 2:56 PM EDT [facility] Blood Venous blood specimen / Unknown Venipuncture / Unknown 02/17/2025 1:56 PM EDT 02/17/2025 1:56 PM EDT us Chirag Mcgraw MD LAB BLOOD ORDERABLES Final Res ult [facility] [address] [place] [address] * Rheumatoid Factor, Plasma (02/17/2025 1:56 PM EDT) Rheumatoid Factor, Plasma <10 <14 IU/mL 02/17/2025 5:09 PM EDT [facility] Blood Venous blood specimen / Unknown Venipuncture / Unknown 02/17/2025 1:56 PM EDT 02/17/2025 1:56 PM EDT us Moraima Richard APRN LAB BLOOD ORDERABLES Maribel l Result [facility] [address] [place] [address] * C3 Complement (02/17/2025 1:56 PM EDT) C3 Complement 149 84 - 166 mg/dL 02/17/2025 3:30 PM EDT [facility] Blood Venous blood specimen / Unknown Venipuncture / Unknown 02/17/2025 1:56 PM EDT 02/17/2025 1:56 PM EDT Moraima Richard EXTERNAL GRINDER LAB BLOOD ORDERABLES Maribel l Result Performing Organization Address [facility]/ZIP Co de Phone Number [facility] [address] [place] [address] * C4 Complement (02/17/2025 1:56 PM EDT) C4 Complement 23 13 - 36 mg/dL 02/17/2025 3:30 PM EDT [facility] Blood Venous blood specimen / Unknown Venipuncture / Unknown 02/17/2025 1:56 PM EDT 02/17/2025 1:56 PM EDT Moraima Dvaalosly EXTERNAL GRINDER LAB BLOOD ORDERABLES Maribel l Result Performing Organization Address [facility] [facility] [place] [address] * (ABNORMAL) Antinuclear Antibody (NELSY), HEp-2, IgG (02/17/2025 1:56 PM EDT) Pathologist [facility] NELSY INTERPRETIVE COMMENT See Note 02/19/2025 2:35 PM EDT [facility] ([place]) Anti Nuc Ab Screen Detected( H) <1:80 02/19/2025 2:35 PM EDT [facility] ([place]) Blood Venous blood specimen / Unknown Venipuncture / Unknown 02/17/2025 1:56 PM EDT 02/17/2025 1:56 PM EDT Narrative [facility] ([place]) - 02/19/2025 2:35 PM EDT Centrome[facility] Pattern [...] not necessarily rule out SARD. Performed By: [facility] [employer] [address] [place] [id number] Fire Warden: Angel Luis Fuentes MD, PhD CLIA Number: [id number] Moraima Richard APRN LAB BLOOD ORDERABLES Maribel gomez Result [facility] ([place]) [address] [place] [address] * TSH (02/17/2025 1:56 PM EDT) Thyroid Stimulating Hormone, Plasma 1.62 0.40 - 4.20 uIU/mL 02/17/2025 3:29 PM EDT [facility] Blood Venous blood specimen / Unknown Venipuncture / Unknown 02/17/2025 1:56 PM EDT 02/17/2025 1:56 PM EDT Moraima Richard EXTERNAL GRINDER LAB BLOOD ORDERABLES Maribel l Result Performing Organization Address City/[facility]/ZIP Co de Phone Number [facility] [address] [place] [address] * T4, free (02/17/2025 1:56 PM EDT) Free T4, Plasma 1.2 0.8 - 1.7 ng/dL 02/17/2025 3:29 PM EDT [facility] Blood Venous blood specimen / Unknown Venipuncture / Unknown 02/17/2025 1:56 PM EDT 02/17/2025 1:56 PM EDT Moraima Davalosly EXTERNAL GRINDER LAB BLOOD ORDERABLES Maribel l Result Performing Organization Address City/[facility]/ZIP Co de Phone Number [facility] [address] [place] [address] * (ABNORMAL) Basic metabolic panel (02/17/2025 1:56 PM EDT) Glucose, Plasma 74 74 - 99 mg/dL 02/17/2025 3:29 PM EDT [facility] BUN, Plasma 10 8 - 23 mg/dL 02/17/2025 3:29 PM EDT [facility] Creatinine, Plasma 0.66 0.60 - 1.10 mg/dL 02/17/2025 3:29 PM EDT [facility] BUN/Creatinine Ratio 15 02/17/2025 3:29 PM EDT [facility] Sodium, Plasma 138 136 - 145 mmol/L 02/17/2025 3:29 PM EDT [facility] Potassium, Plasma 3.3(L) 3.6 - 4.9 mmol/L 02/17/2025 3:29 PM EDT [facility] Chloride, Plasma 100 97 - 107 mmol/L 02/17/2025 3:29 PM EDT [facility] CO2, Plasma 25 22 - 29 mmol/L 02/17/2025 3:29 PM EDT [facility] Anion Gap 13 6 - 16 mmol/L 02/17/2025 3:29 PM EDT [facility] Total Calcium, Plasma 10.1 8.9 - 10.2 mg/dL 02/17/2025 3:29 PM EDT [facility] eGFRcr 98.1 mL/min/1.7 3m*2 02/17/2025 3:29 PM EDT [facility] Comment:Reported eGFRcr in m L/min/1.73m2 is based the CKD-EPI 2020 equation that does not use a race coefficient. Blood Venous blood specimen / Unknown Venipuncture / Unknown 02/17/2025 1:56 PM EDT 02/17/2025 1:56 PM EDT us Chirag Mcgraw MD LAB BLOOD ORDERABLES Final Res ult [facility] [address] [place] [address] * Cytology (08/22/1991 12:00 AM EST) Specimen from vagina (specimen) 08/22/1991 08/23/1991 Narrative [facility] - 09/09/1991 12:00 AM EST [facility] MR #: [id number] [facility] [place] [address] 1960 (Age: 31) FW Collect Date: 08/22/1991 00:00 Receipt Date: 08/23/1991 00:00 Page 1 DEPARTMENT OF PATHOLOGY AND LABORATORY MEDICINE CYTOPATHOLOGY REPORT Email: [email or web address] * Converted Case * This report may not match the original report format ATTENDING MD/Practitioner: Lucila Dolan MD Service: MACHINE WOODWORKING SANDER Location: Reported: 09/09/1991 00:00 Collected: 08/22/1991 00:00 [...] results is suggested (please call Microbiology at [phone] for results). CLINICAL INFORMATION: Menstrual History: {Not Provided} Date of Last Menstrual Period: {Not Provided} h/o [place] III 1984 S/P TVH PAP SMEAR PERFORMED BY SPECIMEN DESCRIPTION: A: VAGINAL, PAP ICD: F: {Not Entered} SNOMED CODES: 1; R7N404 [id number] In cases where a pathologist has signed out the report, the service has been rendered in part by a resident. The signing pathologist has performed and is responsible for the reported pathologic evaluation. us Historical Provider MD LAB PATHOLOGY ORDERABLES Final Result [facility] from Last 3 Months or Most Recently Relevant [place] [address] [place] [address] [facility] MEDICARE [place] MEDICARE [place] Advance Directives * Full Code (Latest Code Status on File) Date Activated Date Inactivated Comments 11/30/2023 2:21 PM 12/01/2023 2:32 PM Question Answer Comments Patient has decision-making capacity? Yes Care Teams Printer Slotter Feeder Relationship Specialty Start Date End Date Lucita Bonilla APRN [address] [place] [address] PCP - General 03/29/23
--- OUTSIDE RECORDS SUMMARY | 2025-04-03 10:41 | XMS_ITS | Clinical Summary ---
Author Organization [employer] [facility] ([place], [place], [place], [place]) Address [address] [place] [address] Care Team Providers Care Medical Registrar Name Role Phone Unavailable Primary Care Provider [...]
--- OUTSIDE RECORDS SUMMARY | 2025-04-03 10:41 | XMS_ITS | Clinical Summary ---
Author Organization [facility] Address [address] [place] [address] Care Team Providers Care Basketballs And Footballs Reverser Name Role Phone Lucita Bonilla Primary Care Provider + [phone] Allergies Active Allergy Reactions Criticality Noted Date [...] Week. 42.5 g 1 4 Active Umeclidinium [place] (Incruse Ellipta) 62.5 MCG/ACT aerosol powder inhale [...] 06/04/2025 07/08/2022, , 06/02/2017 Insurance [facility] MEDICARE REPLACEMENT Care Teams Basketballs And Footballs Reverser Relationship Specialty Start Date End Date Lucita Bonilla [address] [place] [address] PCP - General Nurse Practitioner 03/16/23
--- OUTSIDE RECORDS SUMMARY | 2025-04-03 10:41 | XMS_ITS | Encounter Summary ---
Author Organization [employer] ([place], [place], [place], [place]) Address [address] [place] [address] Care Team Providers Care Assistant Professor Of Forestry Name Role Phone Unavailable Primary Care Provider Unavailabl e Encounter Details Date Type Department Care Team (Late st Contact Info) Description 06/08/2020 Transcribed Document [facility] [place] Family Medicine [address] [place] [address] ProviderSoraida MD [address], [place] [id number] Social History Tobacco Use Types Packs/Day Years [...] Historical ProviderMD - 06/08/2020 11:51 PM CDT [place] Suicide Severity Rating Scale (C-SSRS) Entered On: 06/09/2020 0:57 EDT Performed On: 06/09/2020 0:57 EDT by MINI PACE RN [place] Suicide Severity Rating Scale (C-SSRS) CSSRS Past [...]
--- OUTSIDE RECORDS SUMMARY | 2025-04-03 10:41 | XMS_ITS | Encounter Summary ---
Author Organization [employer] ([place], [place], [place], [place]) Address [address] [place] [address] Care Team Providers Care Trap Operator Name Role Phone Unavailable Primary Care Provider Unavailabl e Encounter Details Date Type Department Care Team (Late st Contact Info) Description 06/08/[address] [facility] [place] [address] [place] [address] ProviderSoraida MD [address] [place] [address] Social History Tobacco Use Types [...] Communication Barrier : None Primary Language : Citizen Of [place] Any Spiritual/Cultural Needs or Requests : No [...] Roberta Madrigal RN - 06/09/2020 1:24 EDT documented in this encounter Plan of Treatment Not on file documented as of this encounter Visit Diagnoses Not on filedocumented in this encounter
--- OUTSIDE RECORDS SUMMARY | 2025-04-03 10:41 | XMS_ITS | Encounter Summary ---
Author Organization [employer] ([place], [place]) Address [address] [place] [address] Care Team Providers Care Pickling Grader Name Role Phone Unavailable Primary Care Provider Unavailabl e Encounter Details Date Type Department Care Team (Late st Contact Info) Description 06/09/2020 Transcribed Document [facility] [place] [facility] [place] [address] ProviderSoraida MD [address] [place] [address] Social History Tobacco Use Types [...]
--- OUTSIDE RECORDS SUMMARY | 2025-04-03 10:41 | XMS_ITS | Encounter Summary ---
Author Organization [facility] Address [address] [place] [address] Care Team Providers Care Governor Assembler Name Role Phone Lucita Bonilla APRN Primary Care Provider [phone] Encounter Details Date Type Department Care Team (Late Contact Info) Description 03/06/2025 Telephone [facility] Medicine Specialties [address] [place] [address] Moraima Richard APRN [address] [place] [address] Social History Tobacco Use Types [...] Encounters Date Type Department Care Team (Late Contact Info) Description 07/16/2025 8:40 AM EST Office Visit [facility] Medicine Specialties [address] [place] [address] uSki Curtis MD [address] [place] [address] 08/18/2025 1:20 PM EST Office Visit [place] [facility] Medicine Specialties [address] [place] [address] Moraima Richard APRN [address] [place] [address] documented as of this encounter [...] documented as of this encounter Care Teams Governor Assembler Relationship Specialty Start Date End Date Lucita Bonilla APRN [address] [place], [place] [id number] PCP - General 03/29/23 documented as of this encounter
--- OUTSIDE RECORDS SUMMARY | 2025-04-03 10:41 | XMS_ITS | Encounter Summary ---
Author Organization [employer] ([place], [place], [place], [place]) Address [address] [place] [address] Care Team Providers Care Laundrette Owner Name Role Phone Unavailable Primary Care Provider Unavailabl e Encounter Details Date Type Department Care Team (Late st Contact Info) Description 06/09/2020 Transcribed Document [facility] [place] [address] [place] [address] ProviderSoraida MD [address] [place] [address] Social History Tobacco Use Types [...] MD - 06/09/2020 1:[address] [facility] [address] [place] [id number] GISEL JACOBS :1960 Visit Time:06/08/2020 Your Visit [...] Within 1 to 2 weeks Where: [address] [place] [address]- [facility] (1) Follow Up with [facility] When Within 2 to 3 days Allergies traMADol Immunizations This Visit No Immunizations Found Medications What How Much When Instructions Next Dose acetaminophen-hydrocodone ([place] 5 mg-325 mg oral tablet) 1 Tablet(s) [...] ask your health care provider. ??? Take uwhd-hjl-yrhuelx and prescription medicines only as told by [...] Reviewed: 11/08/2017 Elsevier Patient Education ?? 2020 [employer] Hand Pain Many things can cause [...] Managing pain, stiffness, and swelling ??? Take vnrg-cmw-eelexcu and prescription medicines only as told by [...] Reviewed: 05/17/2019 Elsevier Patient Education ?? 2020 [employer] Emergency Awareness and Preventative Care STROKE [...] Assistance with quitting is available by contacting 1-944-DTAQ-NOW. This is a free resource providing counseling, support, and referral. Or you may contact your personal physician. I-Pulse Suicide Prevention Lifeline: The National Suicide Prevention [...] was given the opportunity to ask questions. Patient/Back Up Machine Operator Name: Patient/Back Up Machine Operator Signature: Relationship to Patient: Clinician/Hospital Back Up Machine Operator Signature: Please Provide a Telephone Number Where You Can Be Reached: Is it Permissible To Leave a Message? Date: Electronically signed by Porter, [facility] Conversion Olive Grower Juan Antonio at 12/23/2022 1:37 PM CDT documented in this encounter Plan of Treatment Not on file documented as of this encounter Visit Diagnoses Not on filedocumented in this encounter
--- OUTSIDE RECORDS SUMMARY | 2025-04-03 10:41 | XMS_ITS | Encounter Summary ---
Author Organization [employer] ([place], [place], [place], [place]) Address [address] [place] [address] Care Team Providers Care Cloth Edge Singer Name Role Phone Unavailable Primary Care Provider Unavailabl e Encounter Details Date Type Department Care Team (Late st Contact Info) Description 06/09/2020 Transcribed Document [facility] [place] Family Medicine [address] [place] [address] ProviderSoraida MD [address] [place] [address] Social History Tobacco Use Types [...]
--- OUTSIDE RECORDS SUMMARY | 2025-04-03 10:41 | XMS_ITS | Encounter Summary ---
Author Organization [employer] ([place], [place], [place], [place]) Address [address] [place] [address] Care Team Providers Care Supervisor Pit And Auxiliaries Name Role Phone Unavailable Primary Care Provider Unavailabl e Encounter Details Date Type Department Care Team (Late st Contact Info) Description 06/09/2020 Transcribed Document [facility] [place] [address] [place] [address] ProviderSoraida MD [address] [place] [address] Social History Tobacco Use Types [...] 06/09/2020 2:00 EDT Electronically signed by Porter [facility] Conversion Can Worker Cerner at 12/23/2022 1:36 PM CDT documented in this encounter Plan of Treatment Not on file documented as of this encounter Visit Diagnoses Not on filedocumented in this encounter
--- OUTSIDE RECORDS SUMMARY | 2025-04-03 10:41 | XMS_ITS | Encounter Summary ---
Author Organization [employer] ([place], [place], [place], [place]) Address [address] [place] [address] Care Team Providers Care Weekend Caregiver Name Role Phone Unavailable Primary Care Provider Unavailabl e Encounter Details Date Type Department Care Team (Late st Contact Info) Description 06/09/2020 Transcribed Document [facility] [place] [address] [place] [address] ProviderSoraida MD [address] [place] [address] Social History Tobacco Use Types [...] EDT Height Source Stated Height Entry Format Douglas Height/Length, SALVADOREAN (ft) 5 ft Height/Length SALVADOREAN 1 Inch CLINICALHEIGHT 154.94 cm [place] Body Weight 47.45 kg Weight Source, ED Critical estimated dosing weight Weight Entry Format Douglas Weight Italian lb 120 lb CLINICALWEIGHT 54.55 kg Body [...] hand is neurovascularly intact after placement request [id number]. No records Impression and Plan Diagnosis Hand pain - Discharge, Emergency medicine, Medical Plan Condition: Improved, Stable. Prescriptions: Prescription Cloth Cutting Inspector Pharmacy: naproxen 250 mg oral tablet (Prescribe): 1 Tab, Oral, BID, for 10 Day(s), 20 Tab, 0 Refill(s) [place] 5 mg-325 mg oral tablet (Prescribe): 1 Tab, Oral, Q6H, for 3 Day(s), PRN: for pain, 10 Tab, 0 Refill(s). Patient was given the following educational materials: Hand Pain, Wrist Splint, Adult. Follow up with: [facility] Within 2 to 3 days; [facility] Within 1 to 2 weeks. Counseled: Patient. Orders: Launch Orders Admit/Transfer/Discharge: Discharge (Order): Start: 06/09/2020 1:51 EDT, Discharge to: Home. Electronically signed by Lena Buenrostro Conversion Direct Sales Representative Cerner at 12/23/2022 1:39 PM CDT documented in this encounter Plan of Treatment Not on file documented as of this encounter Visit Diagnoses Not on filedocumented in this encounter
--- OUTSIDE RECORDS SUMMARY | 2025-04-03 10:41 | XMS_ITS | Encounter Summary ---
Author Organization [employer] ([place], [place], [place], [place]) Address [address] [place] [address] Care Team Providers Care Mat Gauger Name Role Phone Unavailable Primary Care Provider Unavailabl e Encounter Details Date Type Department Care Team (Late st Contact Info) Description 06/08/2020 Transcribed Document [facility] [place] [address] [place] [address] ProviderSoraida MD [address] [place] [address] Social History Tobacco Use Types [...] - Non - Urgent Tracking Group : [facility] ED Roberta Reyes RN - 06/09/2020 [...] Problems(Active) GERD (gastroesophageal reflux disease) (SNOMED CT :085217328 ) Name of Problem: GERD (gastroesophageal reflux disease) ; Recorder: AMAYA WALTERS RN; Confirmation: Confirmed ; Classification: Medical ; Code: [id number] ; Contributor System: [employer] ; Last Updated: 10/28/2015 11:49 EST ; Life Cycle Date: 10/28/2015 ; Life Cycle Status: Active ; Vocabulary: SNOMED CT Hypertension (SNOMED CT :3100739137 ) Name of Problem: Hypertension ; Recorder: AMAYA WALTERS RN; Confirmation: Confirmed ; Classification: Medical ; Code: [id number] ; Contributor System: [employer]Chart ; Last Updated: 10/28/2015 11:49 EST ; Life Cycle Date: 10/28/2015 ; Life Cycle Status: Active ; Vocabulary: SNOMED CT Diagnoses(Active) Hand injury - Minor Date: 06/09/2020 ; Diagnosis Type: Reason For Visit ; Confirmation: Complaint of ; Clinical Dx: Hand injury - Minor ; Classification: Medical ; Clinical Service: Emergency medicine ; Code: PNED ; Probability: 0 ; Diagnosis Code: [id number] ED Height and Weight Height Source : Stated Height Entry Format : [place] Height, Feet : 5 ft(Converted to: 152 cm, 60 Inch) Height, Inches : 1 Inch(Converted to: 0 ft 1 Inch, 2.54 cm) Clinical Height : 154.94 cm Weight Source, ED : Critical estimated dosing weight Weight Entry Format : [place] Weight, Pounds : 120 lb Clinical Dosing Weight : 54.55 kg Body Surface Area (BSA) : 1.52 m2 Body Mass Index : 22.7 kg/m2 [place] Body Weight (IBW) : 47.45 kg Roberta Reyes RN - 06/09/2020 0:45 EDT Electronically signed by Lena Buenrostro Conversion Senior Coldfusion Developer Cerner at 12/23/2022 1:38 PM CDT documented in this encounter Plan of Treatment Not on file documented as of this encounter Visit Diagnoses Not on filedocumented in this encounter
--- OUTSIDE RECORDS SUMMARY | 2025-04-03 10:41 | XMS_ITS | Encounter Summary ---
Author Organization [employer] ([place], [place], [place], [place]) Address [address] [place] [address] Care Team Providers Care Membership Secretary Name Role Phone Unavailable Primary Care Provider Unavailabl e Encounter Details Date Type Department Care Team (Late st Contact Info) Description 06/09/2020 Transcribed Document [facility] [place] Family Medicine [address] [place] [address] ProviderSoraida MD [address] [place] [address] Social History Tobacco Use Types [...] On: 06/09/2020 15:43 EDT by Kacey Charles [facility] Provider Status : Information given Established Provider Name : No Patient Phone Number : [phone] Patient Insurance Type : Medicare Source of Referral : Phone out to patient Location of Patient : Home Primary Care Scheduled : No Specialty Care Scheduled : No Qualify for Diabetes and/or Nutrition Referral : No Wound Care Appointment Made : No Why Patient Visited ED- Specialty spent : Other How Patient Arrived at ED : Other Primary Language : [place] Patient Resource [facility] Comment : Patient listed as not having a Primary Care Physician.Spoke with patient via telephone who stated that she wanted the name and number of an MD in [place]. Provided patient with information on Jennifer Cordero. Follow Up Needed : Kacey Heath, HOE RUNNER - 06/09/2020 15:43 EDT documented in this encounter Plan of Treatment Not on file documented as of this encounter Visit Diagnoses Not on filedocumented in this encounter
--- OUTSIDE RECORDS SUMMARY | 2025-04-03 10:41 | XMS_ITS | Encounter Summary ---
Author Organization [employer] ([place], [place], [place], [place]) Address [address] [place] [address] Care Team Providers Care Cosmetology Professor Name Role Phone Unavailable Primary Care Provider Unavailabl e Encounter Details Date Type Department Care Team (Late st Contact Info) Description 06/09/2020 Transcribed Document [facility] [place] [address] [place] [address] ProviderSoraida MD [address] [place] [address] Social History Tobacco Use Types [...] Historical ProviderMD - 06/09/2020 1:52 AM CDT [facility] [place] [address] Visit Date/Time: 06/09/2020 01:52:10 GISEL VAZQUEZ The above patient was seen in the hospital today and needs to be excused from work/school until Return to Work/School Date: 06/13/2020 Electronically signed by Porter [facility] Conversion Catholic Priest Juan Antonio at 12/23/2022 1:36 PM CDT documented in this encounter Plan of Treatment Not on file documented as of this encounter Visit Diagnoses Not on filedocumented in this encounter
--- OUTSIDE RECORDS SUMMARY | 2025-04-03 10:41 | XMS_ITS | Encounter Summary ---
Author Organization [facility] Address [address] [place] [address] Care Team Providers Care Pest Control Service Technician Name Role Phone Lucita Bonilla APRN Primary Care Provider [phone] Encounter Details Date Type Department Care Team (Late st Contact Info) Description 03/22/2023 Telephone [facility] [address] [phone] Dental, Provider, DDS [facility] [address] [place] [id number] Social History Tobacco Use Types Packs/Day Years [...] Description 07/16/2025 8:40 AM EST Office Visit [facility] Medicine Specialties [address] [place] [phone] Suki Curtis MD [address] [place], [place] [address] 08/18/2025 1:20 PM EST Office Visit [facility] Medicine Specialties [address] [place] [address] Moraima Richard APRN [address] [place] [address] documented as of this encounter Visit Diagnoses Not on filedocumented in this encounter Care Teams Pest Control Service Technician Relationship Specialty Start Date End Date Lucita Bonilla APRN [address] [place] [address] PCP - General 03/29/23 documented as of this encounter
[2025-04-03 11:31] LABS: Hematocrit 38.2 % (37.0-47.0); Hemoglobin 11.9 g/dL (12.2-16.2); Immature Granulocytes % 0.2 %; Mean Corpuscular HGB Conc 31.2 g/dL (31.8-35.4); Mean Corpuscular Hemoglobin 29.3 pg (27.0-31.2); Mean Corpuscular Volume 94.1 fl (81-99); Nucleated Red Blood Cells % 0 %; Platelet Count 313 K/mm3 (142-424); Red Blood Count 4.06 M/mm3 (4.20-5.40); Red Cell Distribution Width-SD 46.9 fL; White Blood Count 9.6 K/mm3 (4.8-10.8)
[2025-04-03 12:00] LABS: Alanine Aminotransferase 16 U/L (12-78); Albumin Level 4.5 g/dl (3.5-5.0); Alkaline Phosphatase 77 U/L (38-126); Anion Gap 10.2 mEq/L (5-15); Aspartate Amino Transferase 28 U/L (14-36); Bilirubin,Direct 0.2 mg/dl (0.0-0.4); Bilirubin,Indirect 0.2 mg/dL (0.0-0.9); Bilirubin,Total 0.4 mg/dl (0.2-1.3); Bilirubin,Unconjugated 0.2 mg/dL (0.0-1.1); Blood Urea Nitrogen 13 mg/dl (7-17); Calcium 10.0 mg/dl (8.4-10.2); Carbon Dioxide 28 mmol/L (22.0-30.0); Chloride 107 mmol/L (98-107); Cholesterol 150 mg/dl (140-200); Creatinine,Serum 0.80 mg/dl (0.52-1.04); Estimated Glomerular Filt Rate 72 ml/min (>60); GFR (African American) 87 ML/MIN (>60); Glucose 122 mg/dl (74-100); HDL Cholesterol 47 mg/dl (40-60); Magnesium 2.0 mg/dl (1.6-2.3); Potassium 4.2 mmoL/L (3.5-5.1); Sodium 141 mmol/L (136-145); Total Protein,Serum 7.2 g/dl (6.3-8.2); Triglycerides 150 mg/dl (30-150)
[2025-04-03 12:16] LABS: Free T4 (Free Thyroxine) 1.22 ng/dl (0.78-2.19)
[2025-04-03 12:30] LABS: Thyroid Stimulating Hormone 0.76 uIU/mL (0.465-4.68)
== END 2025-04-03 23:59 | disposition home or self-care (01) ==
LOC: LAB 10:32
PROVIDERS: PCP Physician Assistant; Visit Provider Physician Assistant
DX: I25.10 Atherosclerotic heart disease of native coronary artery without angina pectoris (principal); E78.00 Pure hypercholesterolemia, unspecified; I10 Essential (primary) hypertension; I65.23 Occlusion and stenosis of bilateral carotid arteries; I73.9 Peripheral vascular disease, unspecified
CPT/HCPCS: 36415; 80048; 80061; 80076; 83735; 84439; 84443; 85025

== ENCOUNTER 2025-05-01 08:04 | Outpatient (CLI) | payer MEDICARE, MEDICAID, SELFPAY ==
--- OUTSIDE RECORDS SUMMARY | 2025-04-01 08:00 | XMS_ITS | Encounter Summary ---
Author Organization Healthcare Address [address] [place] [address] Care Team Providers Care Hat Cone Inspector Name Role Phone Lucita Bonilla APRN Primary Care Provider [phone] Reason for Referral * Imaging (Routine) - Pending Review Specialty Diagnoses / Procedures Referred By Frances huang Referred To Contact Radiology Diagnoses Incontinence of feces with fecal urgency Procedures MR Defecography Chirag Mcgraw MD [address] [facility] [address] [place] [address] Phone: tel: fax: Referral ID Status Reason Start Date Expiration Date V isits Requested Visits Authorized [id number] Pending Review 04/01/2025 10/01/2026 1 1 * Consultation (Routine) - Authorized Specialty Diagnoses / Procedures Referred By Frances huang Referred To Contact Gastroenterology Diagnoses Incontinence of feces with fecal urgency Chirag Mcgraw MD [address] [facility] [address] [place] [address] Phone: tel: fax: Referral ID Status Reason Start Date Expiration Date Visits Requested Visits Authorized [id number] Authorized Specialty Services Required 04/01/2025 10/01/2026 1 1 Scheduling Instructions 65 yo with defecatory dysfunction needs baseline screening colonoscopy. Please evaluate. Many thanks! Reason for Visit * Reason Comments Painful defecation Encounter Details Date Type Department Care Team ([facility] Contact Info) Description 04/01/2025 8:00 AM EDT Office Visit Medical Office Building Obstetrics and Gynecology [address] [facility], [address] [place] [address] Chirag Mcgraw MD [address] [facility] [address] [place] [address] Painful defecation (Primary Dx); Incontinence [...] Not at all 04/01/2025 8:05 AM JAMIET Daphine Ignacio Patient Health Questionnaire -9 Score 0 [...] Judgment: Judgment normal. Exam conducted with a network admin present. Labs: Imaging: Assessment/Plan Assessment & Plan [...] Please note: This dictation was prepared using [employer] Direct voice recognition software. As a result errors may occur. When identified, these maintenance groundskeeper errors have been corrected. While every attempt is made to correct errors during dictation, errors may still exist. documented in this encounter Plan of Treatment Upcoming Encounters Date Type Department Care Team (Late st Contact Info) Description 07/16/2025 8:40 AM EST Office Visit [facility] Medicine Specialties [address] [place] [address] Suki Curtis MD [address] [place] [address] 08/18/2025 1:20 PM EST Office Visit [facility] Medicine Specialties [address] [place] [address] Moraima Richard, LARISSA [address] [place] [address] Scheduled Orders Name Type Priority Associated Diagnoses [...] documented as of this encounter Care Teams Hat Cone Inspector Relationship Specialty Start Date End Date Lucita Bonilla APRN [address] [place] [address] PCP - General 03/29/23 documented as of this encounter
--- OUTSIDE RECORDS SUMMARY | 2025-05-01 08:24 | XMS_ITS | Encounter Summary ---
Author Organization [facility] ([place], [place], [place], [place]) Address [address] [place] [address] Care Team Providers Care Green Hide Inspector Name Role Phone Unavailable Primary Care Provider Unavailabl e Encounter Details Date Type Department Care Team (Late st Contact Info) Description 06/08/2020 Transcribed Document [facility] [place] Family Medicine [address] [place] [address] ProviderSoraida MD [address] [place] [address] Social History Tobacco Use Types [...] - Non - Urgent Tracking Group : [facility] ED Roberta Reyes RN - 06/09/2020 0:45 [...] Problems(Active) GERD (gastroesophageal reflux disease) (SNOMED CT :775803458 ) Name of Problem: GERD (gastroesophageal reflux disease) ; Recorder: AMAYA WALTERS RN; Confirmation: Confirmed ; Classification: Medical ; Code: [id number] ; Contributor System: OKWaveChart ; Last Updated: 10/28/2015 11:49 EST ; Life Cycle Date: 10/28/2015 ; Life Cycle Status: Active ; Vocabulary: SNOMED CT Hypertension (SNOMED CT :0599277891 ) Name of Problem: Hypertension ; Recorder: AMAYA WALTERS RN; Confirmation: Confirmed ; Classification: Medical ; Code: [id number] ; Contributor System: OKWaveChart ; Last Updated: 10/28/2015 11:49 EST ; Life Cycle Date: 10/28/2015 ; Life Cycle Status: Active ; Vocabulary: SNOMED CT Diagnoses(Active) Hand injury - Minor Date: 06/09/2020 ; Diagnosis Type: Reason For Visit ; Confirmation: Complaint of ; Clinical Dx: Hand injury - Minor ; Classification: Medical ; Clinical Service: Emergency medicine ; Code: PNED ; Probability: 0 ; Diagnosis Code: [id number] ED Height and Weight Height Source : Stated Height Entry Format : [place] Height, Feet : 5 ft(Converted to: 152 cm, 60 Inch) Height, Inches : 1 Inch(Converted to: 0 ft 1 Inch, 2.54 cm) Clinical Height : 154.94 cm Weight Source, ED : Critical estimated dosing weight Weight Entry Format : [place] Weight, Pounds : 120 lb Clinical Dosing Weight : 54.55 kg Body Surface Area (BSA) : 1.52 m2 Body Mass Index : 22.7 kg/m2 [place] Body Weight (IBW) : 47.45 kg Roberta Reyes RN - 06/09/2020 0:45 EDT documented in this encounter Plan of Treatment Not on file documented as of this encounter Visit Diagnoses Not on filedocumented in this encounter
--- OUTSIDE RECORDS SUMMARY | 2025-05-01 08:24 | XMS_ITS | Encounter Summary ---
Author Organization [employer] ([place], [place], [place], [place]) Address [address] [place] [address] Care Team Providers Care Gimp Tacker Name Role Phone Unavailable Primary Care Provider Unavailabl e Encounter Details Date Type Department Care Team (Late st Contact Info) Description 06/09/2020 Transcribed Document [facility] [place] Family Medicine [address] [place] [address] ProviderSoraida MD [address] [place] [address] Social History Tobacco Use Types [...] Historical ProviderMD - 06/09/2020 1:52 AM CDT [facility] [place] [id number] Visit Date/Time: 06/09/2020 01:52:10 GISEL VAZQUEZ The above patient was seen in the hospital today and needs to be excused from work/school until Return to Work/School Date: 06/13/2020 Electronically signed by Porter [facility] Conversion Chair Post Machine Operator Juan Antonio at 12/23/2022 1:36 PM CDT documented in this encounter Plan of Treatment Not on file documented as of this encounter Visit Diagnoses Not on filedocumented in this encounter
--- OUTSIDE RECORDS SUMMARY | 2025-05-01 08:24 | XMS_ITS | Encounter Summary ---
Author Organization [employer] ([place], [place], [place], [place]) Address [address] [place] [address] Care Team Providers Care Mall Manager Name Role Phone Unavailable Primary Care Provider Unavailabl e Encounter Details Date Type Department Care Team (Late st Contact Info) Description 06/08/[address] [facility] [place] [address] [place] [address] ProviderSoraida MD [address] [place] [address] Social History Tobacco Use Types [...] Communication Barrier : None Primary Language : Gabonese Any Spiritual/Cultural Needs or Requests : No [...]
--- OUTSIDE RECORDS SUMMARY | 2025-05-01 08:24 | XMS_ITS | Encounter Summary ---
Author Organization Healthcare Address [address] [place] [address] Care Team Providers Care Cylindrical Mixer Name Role Phone Lucita Bonilla APRN Primary Care Provider [phone] Encounter Details Date Type Department Care Team (Late st Contact Info) Description 03/22/2023 Telephone [facility] [address] [phone] Dental, Provider, DDS [facility] [address] [place] [id number] Social History Tobacco Use Types Packs/Day Years [...] [facility] Medicine Specialties [address] [place] [phone] Suki Curtis MD [address] [place], [place] [id number] 08/18/2025 1:20 PM EST Office Visit [facility] Medicine Specialties [address] [place] [address] Moraima Richard APRN [address] [place] [address] documented as of this encounter Visit Diagnoses Not on filedocumented in this encounter Care Teams Cylindrical Mixer Relationship Specialty Start Date End Date Lucita Bonilla APRN [address] [place] [address] PCP - General 03/29/23 documented as of this encounter
--- OUTSIDE RECORDS SUMMARY | 2025-05-01 08:24 | XMS_ITS | Encounter Summary ---
Author Organization Healthcare Address [facility] [place] [id number] Care Team Providers Care Rn Transfer Name Role Phone Lucita Bonilla APRN Primary Care Provider [phone] Encounter Details Date Type Department Care Team [...] Description 07/16/2025 8:40 AM EST Office Visit [facility] Medicine Specialties [address] [place] [address] Suki Curtis MD [address] [place] [address] 08/18/2025 1:20 PM EST Office Visit [facility] [address] [place] [address] Moraima Richard, MANAGED CARE ANALYST [address] [facility] [address] [place] [address] documented as of this encounter [...] documented as of this encounter Care Teams Rn Transfer Relationship Specialty Start Date End Date Lucita Bonilla APRN [address] [place] [address] PCP - General 03/29/23 documented as of this encounter
--- OUTSIDE RECORDS SUMMARY | 2025-05-01 08:24 | XMS_ITS | Encounter Summary ---
Author Organization [employer] ([place], [place], [place], [place]) Address [address] [place] [address] Care Team Providers Care Paper Folding Machine Operator Name Role Phone Unavailable Primary Care Provider Unavailabl e Encounter Details Date Type Department Care Team (Late st Contact Info) Description 06/08/2020 Transcribed Document [facility] [place] [address] [place] [address] ProviderSoraida MD [address] [place] [phone] Social History Tobacco Use Types Packs/Day Years [...] Historical ProviderMD - 06/08/2020 11:51 PM CDT [place] Suicide Severity Rating Scale (C-SSRS) Entered On: 06/09/2020 0:57 EDT Performed On: 06/09/2020 0:57 EDT by MINI PACE RN [place] Suicide Severity Rating Scale (C-SSRS) CSSRS Past Month Wish to be : No CSSRS Past Month Suicidal Thoughts : No CSSRS Lifetime Suicide Behavior : No Suicide Severity Rating Score : 0 Suicide Severity Rating : No Additional Care Required at this time MINI PACE RN - 06/09/2020 0:57 EDT Electronically signed by Lena Buenrostro Conversion Transportation Maintenance Operator Cerner at 12/23/2022 1:49 PM CDT documented in this encounter Plan of Treatment Not on file documented as of this encounter Visit Diagnoses Not on filedocumented in this encounter
--- OUTSIDE RECORDS SUMMARY | 2025-05-01 08:24 | XMS_ITS | Encounter Summary ---
Author Organization Healthcare Address [address] [place] [address] Care Team Providers Care Catering Chef Name Role Phone Lucita Bonilla APRN Primary Care Provider Encounter Details Date Type Department Care Team (Late Contact Info) Description 03/06/2025 Telephone [facility] Medicine Specialties [address] [place] [address] Moraima Richard APRN [address] [place] [address] Social History Tobacco Use Types [...] Description 07/16/2025 8:40 AM EST Office Visit [facility] Medicine Specialties [address] [place] [address] Suki Curtis MD [address] [place] [address] 08/18/2025 1:20 PM EST Office Visit [place] [facility] Specialties [address] [place] [address] Moraima Richard APRN [address] [place] [address] documented as of this encounter [...] documented as of this encounter Care Teams Catering Chef Relationship Specialty Start Date End Date Lucita Bonilla APRN [address] [place], [place] [phone] PCP - General 03/29/23 documented as of this encounter
--- OUTSIDE RECORDS SUMMARY | 2025-05-01 08:24 | XMS_ITS | Encounter Summary ---
Author Organization [employer] ([place], [place], [place], [place]) Address [address] [place] [address] Care Team Providers Care Health And Safety Tech Name Role Phone Unavailable Primary Care Provider Unavailabl e Encounter Details Date Type Department Care Team (Late st Contact Info) Description 06/09/2020 Transcribed Document [facility] [place] [address] [place] [address] ProviderSoraida MD [address] [place] [address] Social History Tobacco Use Types [...]
--- OUTSIDE RECORDS SUMMARY | 2025-05-01 08:24 | XMS_ITS | Encounter Summary ---
Author Organization [employer] ([place], [place], [place], [place]) Address [address] [place] [address] Care Team Providers Care Stretch Box Tender Name Role Phone Unavailable Primary Care Provider Unavailabl e Encounter Details Date Type Department Care Team (Late st Contact Info) Description 06/09/2020 Transcribed Document [facility] [place] [address] [place] [address] ProviderSoraida MD [address] [place] [address] Social History Tobacco Use Types [...] 06/09/2020 2:00 EDT Electronically signed by Porter [facility] Conversion Electrical Power Engineer Cerner at 12/23/2022 1:36 PM CDT documented in this encounter Plan of Treatment Not on file documented as of this encounter Visit Diagnoses Not on filedocumented in this encounter
--- OUTSIDE RECORDS SUMMARY | 2025-05-01 08:24 | XMS_ITS | Encounter Summary ---
Author Organization Healthcare Address [address] [place] [address] Care Team Providers Care Fiberglass Model Maker Name Role Phone Lucita Bonilla APRN Primary Care Provider [phone] Encounter Details Date Type Department Care Team (Late Contact Info) Description 04/10/2025 Telephone [facility] Medicine Specialties [address] [place] [address] [place] [address] Social History Tobacco Use Types Packs/Day Years [...] encounter Miscellaneous Notes * Telephone Encounter - Aleah Ramon - 04/10/2025 11:24 AM EDT Patient called She was wondering if she could get a sooner appointment than July I added current appointment to a waitlist CB: [phone] documented in this encounter Plan of Treatment Upcoming Encounters Date Type Department Care Team (Late st Contact Info) Description 07/16/2025 8:40 AM EST Office Visit [facility] Medicine Specialties [address] [place] [address] Suki Curtis MD [address] [place], [place] [phone] 08/18/2025 1:20 PM EST Office Visit [facility] Medicine Specialties [address] [place] [address] Moraima Richard, LARISSA [address] [place] [address] documented as of this encounter [...] documented as of this encounter Care Teams Fiberglass Model Maker Relationship Specialty Start Date End Date Lucita Bonilla APRN [address] [place] [address] PCP - General 03/29/23 documented as of this encounter
--- OUTSIDE RECORDS SUMMARY | 2025-05-01 08:24 | XMS_ITS | Clinical Summary ---
Author Organization [facility] Address [address] [place] [address] Care Team Providers Care Etl Database Developer Name Role Phone Lucita Bonilla APRN Primary Care Provider [phone] Allergies Active Allergy Reactions Criticality Noted Date [...] nausea or vomiting. 10 tablet 5 06/13/20 24 Active Additional Information Patient not [...] 120 capsule 2 04/01/20 25 026 Active Active Problems Problem Noted Date Diagnosed [...] Encounters Date Type Department Care Team Description 04/10/2025 Telephone [facility] Medicine Specialties [address] [place] [address] Aleah Ramon 04/01/2025 8:00 AM EDT Office Visit Medical Office Building Obstetrics and Gynecology [address], [address] [place] [phone] Chirag Mcgraw MD Painful defecation (Primary Dx); Incontinence of feces with fecal urgency 04/01/2025 Travel 03/25/2025 Telephone Medical Office Building Obstetrics and Gynecology [address], [address] [place] [phone] Chirag Mcgraw MD 03/06/2025 Telephone [facility] Medicine Specialties [address] [place] [address] Moraima Richard, YOUTH COURT JUDGE 03/03/2025 Telephone [facility] Medicine Specialties [address] [place] [address] Moraima Richard, YOUTH COURT JUDGE 02/26/2025 Telephone [facility] Medicine Specialties [address] [place] [address] Moraima Richard, YOUTH COURT JUDGE 02/18/2025 Results Follow-Up [facility] Medicine Specialties [address] [place] [address] Moraima Richard, YOUTH COURT JUDGE 02/17/2025 1:59 PM EDT - 02/17/2025 11:59 PM EDT Hospital Encounter [facility] Radiology [address] [place] [address] Positive NELSY (antinuclear antibody); Polyarthralgia Discharge Disposition: Home or Self Care 02/17/2025 1:50 PM EDT Consult [facility] Medicine Specialties [address] [place] [address] Moraima Richard, YOUTH COURT JUDGE Positive NELSY (antinuclear antibody) (Primary Dx); Polyarthralgia [...] Description 07/16/2025 8:40 AM EST Office Visit [facility] Medicine Specialties [address] [place] [address] Suki Curtis MD [address], [place] [id number] 08/18/2025 1:20 PM EST Office Visit [facility] Medicine Specialties [address] [place] [address] Moraima Richard APRN [address] [place] [address] Health Maintenance Due Date Last [...] UKY-Zoster Vaccines (2 of 2) 01/16/2024 11/21/2023 [id number] Vaccine (1 - season) 2024 UKY-Influenza Vaccine [...] this topic Medical Devices Implanted Type Area Milk Tanker Driver Device Identifier Shelf Expiration Date Model / Serial / Lot System Mesh Sling Advantage Fit Blue - [id number] Implanted:Qty: 1 on 11/30/2023 by Chirag Mcgraw MD at [facility] N/A: [employer][id number] 1 07/30/2026 [id number] / / [id number] Procedures Procedure Name Priority Date/Time Associated Diagnosis [...] PM EDT Positive NELSY (antinuclear antibody) Polyarthralgia CALLAHAN/COAT PRESSER (LILIBETH) ANTIBODY, IGG (SO) Routine 02/17/2025 1:56 [...] IM XR PROCEDURES Final R esult * XR [...] Urine 27 mg/dL 02/17/2025 4:44 PM EDT [facility] Creatinine, Urine 71 mg/dL 02/17/2025 4:44 PM EDT [facility] Protein/Creatin ine Ratio 0.4 mg/mg Creat 02/17/2025 4:44 PM EDT [facility] Urine Urine specimen obtained by clean catch procedure / Unknown Non-blood Collection / Unknown 02/17/2025 1:57 PM EDT 02/17/2025 1:57 PM EDT Moraima Richard APRN LAB URINE ORDERABLES Maribel l Result [facility] [address] [place] [address] * Cryoglobulin, Serum (SO) (02/17/2025 1:56 PM EDT) Pathologist [facility] Cryoglobulin, S SEE COMMENTS Negative %ppt 02/19/2025 2:00 PM EDT [facility] ([facility]) Comment: Negative. This test is negative at 24 hours. All samples are held and reviewed again at 7 days. If delayed precipitation occurs after 7 days, Immunofixation will be performed and an additional report will follow. Test Performed by: [facility] [place] [address] Diamond Cleaner: Jani Nascimento Ph.D.; CLIA# [id number] Blood Venous blood specimen / Unknown Venipuncture / Unknown 02/17/2025 1:56 PM EDT 02/17/2025 1:56 PM EDT Moraima Richard APRN LAB REF LAB BLOOD AND FLU ID ORD Final Result [facility] ([facility]) * (ABNORMAL) RNA Polymerase III Antibody, IgG (02/17/2025 1:56 PM EDT) [facility] RNA Polymerase III Antibody, IgG 73(H) 0 - 19 Units 02/19/2025 7:22 PM EDT [facility] ([place]) Blood Venous blood specimen / Unknown Venipuncture / Unknown 02/17/2025 1:56 PM EDT 02/17/2025 1:56 PM EDT Narrative [facility]) - 02/19/2025 7:22 PM EDT INTERPRETIVE INFORMATION: [...] antibodies associated with SSc, including centromere, Scl-70, U3-COAT PRESSER, PM/Scl, or Th/To. Performed By: [facility] [address] [place] [address] Unit Secretary: Angel Luis Fuentes MD, PhD CLIA Number: [id number] Moraima Richard YOUTH COURT JUDGE LAB BLOOD ORDERABLES Maribel gomez Result [facility] [address] [place] [address] * (ABNORMAL) Centromere Antibody, IgG (02/17/2025 1:56 PM EDT) Centromere Ab, IgG 139(H) 0 - 40 AU/mL 02/19/2025 1:27 PM EDT [facility]USTIN) Blood Venous blood specimen / Unknown Venipuncture / Unknown 02/17/2025 1:56 PM EDT 02/17/2025 1:56 PM EDT Narrative [facility] James[facility]) - 02/19/2025 1:27 PM EDT INTERPRETIVE INFORMATION: [...] other antibodies associated with SSc, including Scl-70, U3-COAT PRESSER, PM/Scl, or Th/To. Performed By: [facility] [address] [place] [address] Unit Secretary: Angel Luis Fuentes MD, PhD CLIA Number: [id number] Moraima Richard APRN LAB BLOOD ORDERABLES Maribel gomez Result [facility]) [address] [place], [place] [id number] * PM/Scl-100 Antibody, IgG by Immunoblot (SO) (02/17/2025 1:56 PM EDT) PM/Scl 100 Antibody, IgG Negative Negative 02/19/2025 8:42 PM EDT [facility] ([facility]) Blood Venous blood specimen / Unknown Venipuncture / Unknown 02/17/2025 1:56 PM EDT 02/17/2025 1:56 PM EDT Narrative [facility]) - 02/19/2025 8:42 PM EDT INTERPRETIVE INFORMATION: [...] developed and its performance characteristics determined by [facility]. It has not been cleared or approved by the US Food and Drug Administration. This test was performed in a CLIA certified laboratory and is intended for clinical purposes. Performed By: [facility] [address] [place] [address] Unit Secretary: Angel Luis Fuentes MD, PhD CLIA Number: [id number] Moraima Jose Manuel YOUTH COURT JUDGE LAB BLOOD ORDERABLES Maribel l Result Performing Organization Address [facility]/ZIP Co de Phone Number [facility] ([place]) [address] [place] [address] * Total Protein, Serum (02/17/2025 1:56 PM EDT) Total Protein 7.5 6.2 - 7.7 g/dL 02/17/2025 3:37 PM EDT [facility] Blood Venous blood specimen / Unknown Venipuncture / Unknown 02/17/2025 1:56 PM EDT 02/17/2025 1:56 PM EDT [facility] Rimma Richard [facility] LAB BLOOD ORDERABLES Maribel l Result [facility] [address] [place] [address] * (ABNORMAL) Protein Electrophoresis, Serum (02/17/2025 1:56 PM EDT) Albumin Electrophoresis, Serum 4.3 3.6 - 4.7 g/dL 02/18/2025 4:01 AM EDT [facility] Alpha 1 Globulin Electrophoresis, Serum 0.3 0.2 - 0.4 g/dL 02/18/2025 4:01 AM EDT [facility] Alpha 2 Globulin Electrophoresis, Serum 1.0(H) 0.5 - 0.9 g/dL 02/18/2025 4:01 AM EDT [facility] Beta 1 Globulin Electrophoresis, Serum 0.5 0.3 - 0.5 g/dL 02/18/2025 4:01 AM EDT [facility] Beta 2 Globulin Electrophoresis, Serum 0.4 0.2 - 0.5 g/dL 02/18/2025 4:01 AM EDT [facility] Gamma Globulin Electrophoresis, Serum 1.0 0.6 - 1.5 g/dL 02/18/2025 4:01 AM EDT [facility] Interpretation, Serum Protein Electrophoresis Pathology report to follow. 02/18/2025 4:01 AM EDT [facility] Blood Venous blood specimen / Unknown Venipuncture / Unknown 02/17/2025 1:56 PM EDT 02/17/2025 1:56 PM EDT Moraima Richard APRN LAB BLOOD ORDERABLES Maribel gomez Result [facility] [address] [place] [address] * Callahan (LILIBETH) Antibody, IgG (02/17/2025 1:56 PM EDT) Callahan (LILIBETH) Antibody, IgG 5 0 - 40 AU/mL 02/19/2025 1:27 PM EDT [facility] ([facility]) Serum 02/17/2025 1:56 PM EDT 02/17/2025 1:56 PM EDT Narrative [facility] ([facility]) - 02/19/2025 1:27 PM EDT INTERPRETIVE INFORMATION: Callahan (LLIIBETH) Antibody, IgG 29 AU/mL or Less ............. Negative 30 - 40 AU/mL ................ Equivocal 41 AU/mL or Greater .......... Positive Callahan antibody is highly specific (greater than 90 percent) for systemic lupus erythematosus (SLE) but only occurs in 30-35 percent of SLE cases. The presence of antibodies to Callahan has variable associations with SLE clinical manifestations. Performed By: [facility] [address] [place] [address] Unit Secretary: Angel Luis Fuentes MD, PhD CLIA Number: [id number] Moraima Richard APRN LAB REF LAB BLOOD AND FLU ID ORD Final Result Performing Organization Address [facility]/ZIP Co de Phone Number [facility] ([facility]) [address] [place] [address] * Protein electrophoresis serum, pathologist interpretation (02/17/2025 1:56 PM EDT) Clinical Diagnosis, SPEP Positive NELSY 02/18/2025 10:51 AM EDT [facility] Interpretation , SPEP There are no significant abnormalities in the protein electrophoretic pattern save for slightly elevated alpha-2 A resident was involved in the service. I attest I examined the relevant preparations for the specimens and confirmed the diagnosis or interpretation. 02/18/2025 10:51 AM EDT [facility] Pathologist Signature, SPEP Reviewed by: Bryce Camarillo MD 02/18/2025 10:51 AM EDT [facility] LAB CP ASR DISCLAIMER Yes 02/18/2025 10:51 AM EDT [facility] Blood Venous blood specimen / Unknown Venipuncture / Unknown 02/17/2025 1:56 PM EDT 02/17/2025 1:56 PM EDT Moraima Richard APRN LAB PATHOLOGY ORDERABLES Final Result [facility] [address] [place] [address] * (ABNORMAL) NELSY Single Pattern (Reflex only) (02/17/2025 1:56 PM EDT) NELSY Pattern Centromere (A) 02/19/2025 2:36 PM EDT [facility] ([facility]) NELSY Titer >1:2560(H) 02/19/2025 2:36 PM EDT [facility] ([facility]) Blood Venous blood specimen / Unknown Venipuncture / Unknown 02/17/2025 1:56 PM EDT 02/17/2025 1:56 PM EDT Narrative [facility] ([place]) - 02/19/2025 2:36 PM EDT Performed By: [facility] [address] [place] [address] Unit Secretary: Angel Luis Fuentes MD, PhD CLIA Number: [id number] Moraima Richard YOUTH [address] JUDGE LAB BLOOD ORDERABLES Maribel l Result [facility] ([place]) [address] [place] [address] * T3 (02/17/2025 1:56 PM EDT) [facility] T3, Serum 130 87 - 187 ng/dL 02/17/2025 5:09 PM EDT [facility] Blood Venous blood specimen / Unknown Venipuncture / Unknown 02/17/2025 1:56 PM EDT 02/17/2025 1:56 PM EDT Moraima Richard YOUTH [address] JUDGE LAB BLOOD ORDERABLES Maribel l Result Performing Organization Address City/[facility]/ZIP Co de Phone Number [facility] [address] [place] [address] * Thyroglobulin Antibody (Inhouse) (02/17/2025 1:56 PM EDT) [facility] Thyroglobulin Antibody <1.0 <4.0 IU/mL 02/17/2025 3:51 PM EDT [facility] Blood Venous blood specimen / Unknown Venipuncture / Unknown 02/17/2025 1:56 PM EDT 02/17/2025 1:56 PM EDT Moraima Richard YOU[employer] [address] JUDGE LAB BLOOD ORDERABLES Maribel l Result [facility] [address] [place] [address] * ENAII (02/17/2025 1:56 PM EDT) SSA-52 (RO52) (LILIBETH) Antibody, IgG 29 0 - 40 AU/mL 02/19/2025 1:28 PM EDT [facility] ([facility]) SSA-60 (RO60) (LILIBETH) Antibody, IgG 0 0 - 40 AU/mL 02/19/2025 1:28 PM EDT [facility] ([facility]) SSB (LA) (LILIBETH) Antibody, IgG 1 0 - 40 AU/mL 02/19/2025 1:28 PM EDT [facility] ([facility]) Blood Venous blood specimen / Unknown Venipuncture / Unknown 02/17/2025 1:56 PM EDT 02/17/2025 1:56 PM EDT Narrative [facility] ([facility]) - 02/19/2025 1:28 PM EDT [...] (PSS) also have this antibody. Performed By: [facility] [address] [place] [address] Unit Secretary: Angel Luis Fuentes MD, PhD CLIA Number: [id number] Moraima Richard YOUTH [address] JUDGE LAB BLOOD ORDERABLES Maribel gomez Result [facility] ([facility]) [address] [place] [address] * ENAI (02/17/2025 1:56 PM EDT) Callahan/COAT PRESSER (LILIBETH) Ab, IgG 2 0 - 19 Units 02/21/2025 8:59 AM EDT [facility] ([facility]) Blood Venous blood specimen / Unknown Venipuncture / Unknown 02/17/2025 1:56 PM EDT 02/17/2025 1:56 PM EDT Narrative [facility] ([place]) - 02/21/2025 8:59 AM EDT INTERPRETIVE INFORMATION: Callahan/COAT PRESSER (LILIBETH) Antibody, IgG 19 Units or Less ............. Negative 20 to 39 Units ............... Weak Positive 40 to 80 Units ............... Moderate Positive 81 Units or greater .......... Strong Positive Callahan/COAT PRESSER antibodies are frequently seen in patients with mixed connective tissue disease (MCTD) and are also associated with other systemic autoimmune rheumatic diseases (SARDs) such as systemic lupus erythematosus (SLE), systemic sclerosis, and myositis. Antibodies targeting the Callahan/COAT PRESSER antigenic complex also recognize Callahan antigens, therefore, the Callahan antibody response must be considered when interpreting these results. Performed By: [facility] [address] [place] [address] Unit Secretary: Angel Luis Fuentes MD, PhD CLIA Number: [id number] Moraima Richard APRN LAB BLOOD ORDERABLES Maribel l Result [facility] ([facility]) [address] [place] [address] * Thyroid Peroxidase Antibody (02/17/2025 1:56 PM EDT) Thyroid Peroxidase Antibody <5 <=8 IU/mL 02/17/2025 3:37 PM EDT [facility] Blood Venous blood specimen / Unknown Venipuncture / Unknown 02/17/2025 1:56 PM EDT 02/17/2025 1:56 PM EDT Moraima Richard APRN LAB BLOOD ORDERABLES Maribel l Result Performing Organization Address City/[facility]/ZIP Co de Phone Number [facility] [address] [place] [address] * Cyclic Citrul Peptide Antibody IgG (02/17/2025 1:56 PM EDT) Cyclic Citrul Peptide Antibody IgG <5.0 <=5.0 U/mL 02/17/2025 3:52 PM EDT [facility] Blood Venous blood specimen / Unknown Venipuncture / Unknown 02/17/2025 1:56 PM EDT 02/17/2025 1:56 PM EDT Moraima Richard [address] [address] JUDGE LAB BLOOD ORDERABLES Maribel l Result [facility] [address] [place] [address] * Anti-scleroderma antibody (02/17/2025 1:56 PM EDT) SCLERODERMA (SCL-70) (LILIBETH) ANTIBODY, IGG 2 0 - 40 AU/mL 02/19/2025 1:28 PM EDT [facility] ([facility]) Blood Venous blood specimen / Unknown Venipuncture / Unknown 02/17/2025 1:56 PM EDT 02/17/2025 1:56 PM EDT Narrative [facility]) - 02/19/2025 1:28 PM EDT INTERPRETIVE INFORMATION: [...] testing for centromere, RNA polymerase III and U3-COAT PRESSER, PM/Scl, or Th/To antibodies. Performed By: [facility] [address] [place] [address] Unit Secretary: Angel Luis Fuentes MD, PhD CLIA Number: [id number] Moraima Richard APRN LAB BLOOD ORDERABLES Maribel gomez Result [facility] [employer]) [address] [place] [address] * (ABNORMAL) Double-Stranded DNA (dsDNA) Antibody, IgG by IFA (02/17/2025 1:56 PM EDT) Double-Strande d DNA (dsDNA) Ab IgG IFA 1:40(H) <1:10 02/20/2025 7:54 AM EDT [facility]) Blood Venous blood specimen / Unknown Venipuncture / Unknown 02/17/2025 1:56 PM EDT 02/17/2025 1:56 PM EDT Narrative [facility]) - 02/20/2025 7:54 AM EDT INTERPRETIVE INFORMATION: [...] recommendations for testing may be found at https://[employer]/content/kdcafepjbk-pkskwi-nizcryqo. Performed By: [facility] [address] [place] [address] Unit Secretary: Angel Luis Fuentes MD, PhD CLIA Number: [id number] Moraima Richard YOU[address] JUDGE LAB BLOOD ORDERABLES Maribel gomez Result [facility] [address] [place] [address] * (ABNORMAL) CBC W/O Differential (02/17/2025 1:56 PM EDT) [facility] WBC Count 11.39(H) 3.70 - 10.30 10*3/uL LAB HEMATOLOGY METHOD 02/17/2025 2:56 PM EDT [facility] RBC Count 4.17 3.90 - 5.20 10*6/uL LAB HEMATOLOGY METHOD 02/17/2025 2:56 PM EDT [facility] HGB 12.4 11.2 - 15.7 g/dL LAB HEMATOLOGY METHOD 02/17/2025 2:56 PM EDT [facility] HCT 38.5 34.0 - 45.0 % LAB HEMATOLOGY METHOD 02/17/2025 2:56 PM EDT [facility] Platelet Count 335 155 - 369 10*3/uL LAB HEMATOLOGY METHOD 02/17/2025 2:56 PM EDT [facility] MCV 92 79 - 98 fL LAB HEMATOLOGY METHOD 02/17/2025 2:56 PM EDT [facility] MCH 29.7 26.0 - 32.0 pg LAB HEMATOLOGY METHOD 02/17/2025 2:56 PM EDT [facility] MCHC 32.2 30.7 - 35.5 g/dL LAB HEMATOLOGY METHOD 02/17/2025 2:56 PM EDT [facility] RDW 13.5 11.5 - 14.5 % LAB HEMATOLOGY METHOD 02/17/2025 2:56 PM EDT [facility] MPV 10.9 8.8 - 12.5 fL LAB HEMATOLOGY METHOD 02/17/2025 2:56 PM EDT [facility] nRBC 0.0 <=0.0 per 100 WBCs LAB HEMATOLOGY METHOD 02/17/2025 2:56 PM EDT [facility] Blood Venous blood specimen / Unknown Venipuncture / Unknown 02/17/2025 1:56 PM EDT 02/17/2025 1:56 PM EDT us Chirag Mcgraw MD LAB BLOOD ORDERABLES Final Res ult [facility] [address] [place] [address] * Rheumatoid Factor, Plasma (02/17/2025 1:56 PM EDT) Rheumatoid Factor, Plasma <10 <14 IU/mL 02/17/2025 5:09 PM EDT [facility] Blood Venous blood specimen / Unknown Venipuncture / Unknown 02/17/2025 1:56 PM EDT 02/17/2025 1:56 PM EDT us Moraima Richard APRN LAB BLOOD ORDERABLES Maribel l Result [facility] [address] [place] [address] * C3 Complement (02/17/2025 1:56 PM EDT) C3 Complement 149 84 - 166 mg/dL 02/17/2025 3:30 PM EDT [facility] Blood Venous blood specimen / Unknown Venipuncture / Unknown 02/17/2025 1:56 PM EDT 02/17/2025 1:56 PM EDT Moraima Richard APRN LAB BLOOD ORDERABLES Maribel l Result [address] [address] * C4 Complement (02/17/2025 1:56 PM EDT) C4 Complement 23 13 - 36 mg/dL 02/17/2025 3:30 PM EDT [facility] Blood Venous blood specimen / Unknown Venipuncture / Unknown 02/17/2025 1:56 PM EDT 02/17/2025 1:56 PM EDT Moraima Jose Manuel YOUTH [address] JUDGE LAB BLOOD ORDERABLES Maribel l Result [address] [address] * (ABNORMAL) Antinuclear Antibody (NELSY), HEp-2, IgG (02/17/2025 1:56 PM EDT) Pathologist [facility] NELSY INTERPRETIVE COMMENT See Note 02/19/2025 2:35 PM EDT [facility] ([facility]) Anti Nuc Ab Screen Detected( H) <1:80 02/19/2025 2:35 PM EDT [facility] ([facility]) Blood Venous blood specimen / Unknown Venipuncture / Unknown 02/17/2025 1:56 PM EDT 02/17/2025 1:56 PM EDT Narrative [facility] ([facility]) - 02/19/2025 2:35 PM EDT Cent[facility]re Pattern [...] not necessarily rule out SARD. Performed By: [facility] [address] [place] [address] Unit Secretary: Angel Luis Fuentes MD, PhD CLIA Number: [id number] Moraima Richard APRN LAB BLOOD ORDERABLES Maribel gomez Result [facility] ([facility]) [address] [place] [address] * TSH (02/17/2025 1:56 PM EDT) Thyroid Stimulating Hormone, Plasma 1.62 0.40 - 4.20 uIU/mL 02/17/2025 3:29 PM EDT [facility] Blood Venous blood specimen / Unknown Venipuncture / Unknown 02/17/2025 1:56 PM EDT 02/17/2025 1:56 PM EDT Moraima Richard [address] JUDGE LAB BLOOD ORDERABLES Maribel l Result Performing Organization Address City/[facility]/ZIP Co de Phone Number [facility] [address] [place] [address] * T4, free (02/17/2025 1:56 PM EDT) Free T4, Plasma 1.2 0.8 - 1.7 ng/dL 02/17/2025 3:29 PM EDT [facility] Blood Venous blood specimen / Unknown Venipuncture / Unknown 02/17/2025 1:56 PM EDT 02/17/2025 1:56 PM EDT Moraima Richard [address] JUDGE LAB BLOOD ORDERABLES Maribel l Result Performing Organization Address City/[facility]/ZIP Co de Phone Number [facility] [address] [place] [address] * (ABNORMAL) Basic metabolic panel (02/17/2025 1:56 PM EDT) Glucose, Plasma 74 74 - 99 mg/dL 02/17/2025 3:29 PM EDT [facility] BUN, Plasma 10 8 - 23 mg/dL 02/17/2025 3:29 PM EDT [facility] Creatinine, Plasma 0.66 0.60 - 1.10 mg/dL 02/17/2025 3:29 PM EDT [facility] BUN/Creatinine Ratio 15 02/17/2025 3:29 PM EDT [facility] Sodium, Plasma 138 136 - 145 mmol/L 02/17/2025 3:29 PM EDT [facility] Potassium, Plasma 3.3(L) 3.6 - 4.9 mmol/L 02/17/2025 3:29 PM EDT [facility] Chloride, Plasma 100 97 - 107 mmol/L 02/17/2025 3:29 PM EDT [facility] CO2, Plasma 25 22 - 29 mmol/L 02/17/2025 3:29 PM EDT [facility] Anion Gap 13 6 - 16 mmol/L 02/17/2025 3:29 PM EDT [facility] Total Calcium, Plasma 10.1 8.9 - 10.2 mg/dL 02/17/2025 3:29 PM EDT [facility] eGFRcr 98.1 mL/min/1.7 3m*2 02/17/2025 3:29 PM EDT [facility] Comment:Reported eGFRcr in m L/min/1.73m2 is based the CKD-EPI 2020 equation that does not use a race coefficient. Blood Venous blood specimen / Unknown Venipuncture / Unknown 02/17/2025 1:56 PM EDT 02/17/2025 1:56 PM EDT us Chirag Mcgraw MD LAB BLOOD ORDERABLES Final Res ult [facility] [address] [place] [address] * Cytology (08/22/1991 12:00 AM EST) Specimen from vagina (specimen) 08/22/1991 08/23/1991 Narrative [facility] - 09/09/1991 12:00 AM EST [facility] MR #: [id number] [facility] [place] [address] 1960 (Age: 31) FW Collect Date: 08/22/1991 00:00 Receipt Date: 08/23/1991 00:00 Page 1 DEPARTMENT OF PATHOLOGY AND LABORATORY MEDICINE CYTOPATHOLOGY REPORT Email: [phone] * Converted Case * This report may not match the original report format ATTENDING MD/Practitioner: Lucila Dolan MD Service: [employer] Location: Reported: 09/09/1991 00:00 Collected: 08/22/1991 00:00 [...] results is suggested (please call Microbiology at [phone] for results). CLINICAL INFORMATION: Menstrual History: {Not Provided} Date of Last Menstrual Period: {Not Provided} h/o [place] III 1984 S/P TVH PAP SMEAR PERFORMED BY SPECIMEN DESCRIPTION: A: VAGINAL, PAP ICD: F: {Not Entered} SNOMED CODES: 1; [id number] [id number] In cases where a pathologist has signed out the report, the service has been rendered in part by a resident. The signing pathologist has performed and is responsible for the reported pathologic evaluation. Historical Provider LAB PATHOLOGY ORDERABLES Fin al Result [facility] from Last 3 Months or Most Recently Relevant [place] [address] [place] [address] [facility] HOSPITAL MEDICARE [place] Advance Directives * Full Code (Latest Code Status on File) Date Activated Date Inactivated Comments 11/30/2023 2:21 PM 12/01/2023 2:32 PM Question Answer Comments Patient has decision-making capacity? Yes Care Teams Etl Database Developer Relationship Specialty Start Date End Date Lucita Bonilla APRN [address] [place] [address] PCP - General 03/29/23
--- OUTSIDE RECORDS SUMMARY | 2025-05-01 08:24 | XMS_ITS | Encounter Summary ---
Author Organization Healthcare Address [address] [place] [address] Care Team Providers Care Automotive Manufacturer Name Role Phone Lucita Bonilla APRN Primary Care Provider [phone] Encounter Details Date Type Department Care Team ([facility] Contact Info) Description 03/25/2025 Telephone Medical Office Building Obstetrics and Gynecology [address], [address] [place] [address] Chirag Mcgraw MD [address] [place] [address] Social History Tobacco Use Types [...] going to the restroom Best contact number: [phone] Optimal time of day to reach caller: ANYTIME Additional comments/information from caller: None Note: Please do not reply to this message. Follow-up communication and further actions as a result of this message need to be communicated with the patient directly, if the patient is not active onMyChart. If the patient is active on MyChart, they will receive notification of the communication/outcome via InNetwork. documented in this encounter Plan of Treatment Upcoming Encounters Date Type Department Care Team (Late st Contact Info) Description 07/16/2025 8:40 AM EST Office Visit [facility]ties [address] [place] [address] Suki Curtis MD [address] [place] [address] 08/18/2025 1:20 PM EST Office Visit [facility] [address], [address] [place] [address] Moraima Richard, LARISSA [address] [place] [address] documented as of this encounter Visit Diagnoses [...] documented as of this encounter Care Teams Automotive Manufacturer Relationship Specialty Start Date End Date Lucita Bonilla APRN [address] [place] [address] PCP - General 03/29/23 documented as of this encounter
--- OUTSIDE RECORDS SUMMARY | 2025-05-01 08:24 | XMS_ITS | Encounter Summary ---
Author Organization Healthcare Address [address] [place] [address] Care Team Providers Care Carpenter Mine Name Role Phone Lucita Bonilla LARISSA Primary Care Provider [phone] Encounter Details Date Type Department Care Team (Late st Contact Info) Description 02/18/2025 Results [facility] [address] [place] [address] Moraima iRchard APRN [address] [place] [address] Social History Tobacco Use Types [...] way Not at all 04/01/2025 8:05 AM EDT Daphnie Ignacio Patient Health Questionnaire -9 Score [...] Description 07/16/2025 8:40 AM EST Office Visit [facility] Medicine Specialties [address] [place] [address] Suki Curtis MD [address] [place] [address] 08/18/2025 1:20 PM EST [facility] [address] [place] [address] Moraima Richard, LARISSA [address] [place] [address] documented as of this encounter [...] documented as of this encounter Care Teams Carpenter Mine Relationship Specialty Start Date End Date Lucita Bonilla APRN [address] [place], [place] [id number] PCP - General 03/29/23 documented as of this encounter
--- OUTSIDE RECORDS SUMMARY | 2025-05-01 08:24 | XMS_ITS | Encounter Summary ---
Author Organization [employer] ([place], [place], [place], [place]) Address [address] [place] [address] Care Team Providers Care Call Center Director Name Role Phone Unavailable Primary Care Provider Unavailabl e Encounter Details Date Type Department Care Team (Late st Contact Info) Description 06/09/2020 Transcribed Document [facility] [place] Family Medicine [address] [place] [address] ProviderSoraida MD [address] [place] [address] Social History Tobacco Use Types [...] EDT Height Source Stated Height Entry Format [place] Height/Length, POLISH (ft) 5 ft Height/Length POLISH 1 Inch CLINICALHEIGHT 154.94 cm [place] Body Weight 47.45 kg Weight Source, ED Critical estimated dosing weight Weight Entry Format [place] Weight [place] Islander lb 120 lb CLINICALWEIGHT 54.55 kg Body [...] hand is neurovascularly intact after placement request [id number]. No records Impression and Plan Diagnosis Hand pain - Discharge, Emergency medicine, Medical Plan Condition: Improved, Stable. Prescriptions: Prescription Physical Meteorologist Pharmacy: naproxen 250 mg oral tablet (Prescribe): 1 Tab, Oral, BID, for 10 Day(s), 20 Tab, 0 Refill(s) Ada 5 mg-325 mg oral tablet (Prescribe): 1 [...]
--- OUTSIDE RECORDS SUMMARY | 2025-05-01 08:24 | XMS_ITS | Encounter Summary ---
Author Organization Healthcare Address [address] [place] [address] Care Team Providers Care Applications Programmer Name Role Phone Lucita Bonilla APRN Primary Care Provider [phone] Encounter Details Date Type Department Care Team (Late Contact Info) Description 03/03/2025 Telephone [facility] [address] [place] [address] Moraima Richard FIRE PREVENTION OFFICER [address] [place] [address] Social History Tobacco Use Types [...] Description 07/16/2025 8:40 AM EST Office Visit [facility] Medicine Specialties [address] [place] [address] Suki Curtis MD [address] [place], [place] [id number] 08/18/2025 1:20 PM EST Office Visit [facility] Medicine Specialties [address], [address] [place] [address] Moraima Richard, FIRE PREVENTION OFFICER [address] [place] [address] documented as of this encounter [...] documented as of this encounter Care Teams Applications Programmer Relationship Specialty Start Date End Date Lucita Bonilla APRN [address] [place] [address] PCP - General 03/29/23 documented as of this encounter
--- OUTSIDE RECORDS SUMMARY | 2025-05-01 08:25 | XMS_ITS | Encounter Summary ---
Author Organization [facility] ([place], [place], [place], [place]) Address [address] [place] [address] Care Team Providers Care Packing Room Inspector Name Role Phone Unavailable Primary Care Provider Unavailabl e Encounter Details Date Type Department Care Team (Late st Contact Info) Description 06/09/[address] [facility] [place] Family Medicine [facility] [place] [address] ProviderSoraida MD [address] [place] [address] Social History Tobacco Use Types [...]
--- OUTSIDE RECORDS SUMMARY | 2025-05-01 08:25 | XMS_ITS | Clinical Summary ---
Author Organization [employer] [facility] ([place], [place], [place]) Address [address] [place] [address] Care Team Providers Care Gas Meter Checker Name Role Phone Unavailable Primary Care Provider [...]
--- OUTSIDE RECORDS SUMMARY | 2025-05-01 08:25 | XMS_ITS | Encounter Summary ---
Author Organization [employer] ([place], [place], [place]) Address [address] [place] [address] Care Team Providers Care Publications Sales Representative Name Role Phone Unavailable Primary Care Provider Unavailabl e Encounter Details Date Type Department Care Team (Late st Contact Info) Description 06/09/2020 Transcribed Document [facility] [place] [address] [place] [address] ProviderSoraida MD [address] [place] [address] Social History Tobacco Use Types [...] On: 06/09/2020 15:43 EDT by Kacey Charles DISPATCH SPECIALIST Patient Resource Center Provider Status : Information given Established Provider Name : No Patient Phone Number : [phone] Patient Insurance Type : Medicare Source of Referral : Phone out to patient Location of Patient : Home Primary Care Scheduled : No Specialty Care Scheduled : No Qualify for Diabetes and/or Nutrition Referral : No Wound Care Appointment Made : No Why Patient Visited ED- Specialty spent : Other How Patient Arrived at ED : Other Primary Language : [place] Patient Resource Center Comment : Patient listed as not having a Primary Care Physician.Spoke with patient via telephone who stated that she wanted the name and number of an MD in [place]. Provided patient with information on Jennifer Cordero. Follow Up Needed : Kacey Heath, DISPATCH SPECIALIST - 06/09/2020 15:43 EDT Electronically signed by Lena Buenrostro Conversion Residential Solar Sales Consultant Cerner at 12/23/2022 1:44 PM CDT documented in this encounter Plan of Treatment Not on file documented as of this encounter Visit Diagnoses Not on filedocumented in this encounter
--- OUTSIDE RECORDS SUMMARY | 2025-05-01 08:25 | XMS_ITS | Encounter Summary ---
Author Organization [employer] ([place], [place], [place], [place]) Address [address] [place] [address] Care Team Providers Care Vapor Coater Name Role Phone Unavailable Primary Care Provider Unavailabl e Encounter Details Date Type Department Care Team (Late st Contact Info) Description 06/09/2020 Transcribed Document [facility] [place] Family Medicine [address] [place] [address] ProviderSoraida MD [address] [place] [address] Social History Tobacco Use Types [...] Bonilla MD - 06/09/2020 1:52 AM CDT [facility] [address] [id number] GISEL JACOBS :1960 Visit Time:06/08/2020 Your Visit [...] Within 1 to 2 weeks Where: [address] [facility] [place] [address]- [facility] (1) Follow Up with [facility] [place]NUM When Within 2 to 3 days Allergies traMADol Immunizations This Visit No Immunizations Found Medications What How Much When Instructions Next Dose acetaminophen-hydrocodone ([place] 5 mg-325 mg oral tablet) 1 Tablet(s) [...] ask your health care provider. ??? Take srhf-yky-gaazjnb and prescription medicines only as told by [...] Reviewed: 11/08/2017 Elsevier Patient Education ?? 2020 [employer] Hand Pain Many things can cause [...] Managing pain, stiffness, and swelling ??? Take wblu-oqo-adhuggk and prescription medicines only as told by [...] Reviewed: 05/17/2019 Elsevier Patient Education ?? 2020 [employer] Emergency Awareness and Preventative Care STROKE [...] Assistance with quitting is available by contacting 4-683-RVLM-NOW. This is a free resource providing counseling, support, and referral. Or you may contact your personal physician. [employer] Suicide Prevention Lifeline: The National Suicide Prevention [...] was given the opportunity to ask questions. Patient/Dixonac Operator Name: Patient/Dixonac Operator Signature: Relationship to Patient: Clinician/Hospital Dixonac Operator Signature: Please Provide a Telephone Number Where You Can Be Reached: Is it Permissible To Leave a Message? Date: Electronically signed by Porter, [facility] Conversion Administrative Assistant Coordinator Juan Antonio at 12/23/2022 1:37 PM CDT documented in this encounter Plan of Treatment Not on file documented as of this encounter Visit Diagnoses Not on filedocumented in this encounter
--- OUTSIDE RECORDS SUMMARY | 2025-05-01 08:25 | XMS_ITS | Referral Summary ---
Author Organization [employer] [facility] ([place], [place], [place], [place]) Address [address] [place] [address] Care Team Providers Care Paint Booth Operator Name Role Phone Unavailable Primary Care [...]
--- NOTE | 2025-05-01 08:30 | CA_ITS ---
FINAL REPORT TECHNIQUE: Perez scale, color and spectral doppler images of the bilateral carotid arteries were obtained. CLINICAL HISTORY: ADDY,SMOKER,HTN COMPARISON: None FINDINGS: Peak systolic velocity in the right internal carotid artery is 170 cm/sec. The internal carotid to common carotid artery ratio is 2.55. There is 50 to 69% carotid artery stenosis and moderate plaque formation. The right vertebral artery is normal in direction. Peak systolic velocity in the left internal carotid artery is 115 cm/sec. The internal carotid to common carotid artery ratio is 2.1. There is no significant carotid artery stenosis and mild plaque formation. The left vertebral artery is normal in direction. IMPRESSION: 50 to 69% right carotid artery stenosis, with less than 50% left carotid artery stenosis. Mild to moderate heterogeneous plaque is noted bilaterally, more severe on the right. Reviewed, Interpreted and Dictated by Pati Pimentel MD Transcribed by Sandi Shafer Authenticated and [facility]
== END 2025-05-01 23:59 | disposition home or self-care (01) ==
LOC: RT 08:05
PROVIDERS: PCP Physician Assistant; Visit Provider Physician Assistant
DX: I65.23 Occlusion and stenosis of bilateral carotid arteries (principal); I73.9 Peripheral vascular disease, unspecified; I25.10 Atherosclerotic heart disease of native coronary artery without angina pectoris; E78.00 Pure hypercholesterolemia, unspecified; I10 Essential (primary) hypertension; I70.1 Atherosclerosis of renal artery; F17.200 Nicotine dependence, unspecified, uncomplicated
CPT/HCPCS: 93880